=== PATIENT | male | born 1955 | race Caucasian/White ===

== ENCOUNTER 2020-08-27 18:27 | Outpatient (REF) | payer OTHER, SELFPAY ==
[2020-08-27 20:42] LABS: ALT 81 U/L (16-63); AST 38 U/L (15-37); Alkaline Phosphatase 83 U/L (46-116); Anion Gap 8.4 mmol/L (3-11); BUN 9 mg/dL (7-18); Bilirubin, Total 0.4 mg/dL (0.2-1.0); CO2 28.6 mmol/L (21.0-32.0); CREATININE 1.07 mg/dL (0.70-1.30); Calculated LDL 46 mg/dL (<100); Chloride 102 mmol/L (98-107); Cholesterol 146 mg/dL (<200); Glucose 364 mg/dL (74-106); HDL Cholesterol 28 mg/dL (40-60); Potassium 4.2 mmol/L (3.5-5.1); Sodium 139 mmol/L (136-145); Total Protein 7.2 g/dL (6.4-8.2); Triglyceride 364 mg/dL (<150)
[2020-08-27 20:58] LABS: Hemoglobin A1C 7.6 % (<5.7)
== END 2020-08-27 18:47 ==
LOC: NCHCN 18:27
PROVIDERS: Visit Provider Physician Assistant
DX: E11.9 Type 2 diabetes mellitus without complications (principal)
CPT/HCPCS: 80053; 80061; 83036

== ENCOUNTER 2021-04-12 03:33 | Outpatient (CLI) | payer OTHER, SELFPAY ==
--- NOTE | 2021-04-12 11:00 | DI.CTLCSR_ITS ---
Exam(s) CT CHEST LUNG CANCER SCREEN EXAM: CT CHEST LUNG CANCER SCREEN CLINICAL HISTORY: SCREENING FOR LUNG CA, COPD,J44.9,COMPARE TO OUTSIDE PREVIOUS,smoker, TECHNIQUE: Imaging Protocol: Axial computed tomography images with coronal and sagittal reformatted images were created and reviewed COMPARISON: No exams were available for comparison FINDINGS: Tracheobronchial tree: Patent where visualized. Mediastinum and Soni: No dominant adenopathy or fluid collection. Pulmonary parenchyma: No consolidation or dominant measurable mass. Minimal emphysematous changes. N o significant interstitial changes. Lung Nodules: Two 2 millimeter peripheral nodules right upper lobe. Pleura: No effusion or pneumothorax. Heart: The heart is not dilated. Mild coronary artery calcifications are seen. Aorta: Thoracic aorta non-dilated. Upper abdomen: Unremarkable. Bones: Unremarkable for age. Degenerative disc changes.. Soft Tissues: Unremarkable. IMPRESSION: No suspicious pulmonary nodules. Category Lung RADS Cat 2 - Benign Appearance / Behavior: Nodules with a very low likelihood of becomi ng a clinically active cancer due to size or lack of growth Lung-RADS 1.0 CATEGORIES: Category 0 - Prior chest CT exam(s) being located for comparison. Category 1 - Annual screening in 12 months. No nodules or definitely benign nodules. Category 2 - Annual screening in 12 months. Benign appearance. Nodules with low likelihood of becomin g active cancer. Category 3 - 6-month follow-up. Probably benign. Short-term follow-up suggested. Nodules with low lik elihood of becoming active cancer. Category 4A - 3-month follow-up and CT/PET if >8 mm in size. Suspicious finding. Findings which requi re additional testing. Category 4B - Findings which require additional testing and tissue sampling. Modifier S- Potentially clinically significant findings (non lung cancer) RADIATION DOSE DELIVERED: 92.26mGy.cm Total DLP 2.21mGy CTDIvol DATA REPOSITORY: All CT scans at this facility are submitted to the National Radiology Data Registry (NRDR) Dose Index Registry (DIR) with the [employer] (ACR). RADIATION OPTIMIZATION: All CT scans at this facility use at least one of these dose optimization te chniques: automated exposure control; mA and/or kV adjustment per patient size (includes targeted exa ms where dose is matched to clinical indication); or iterative reconstruction.
== END 2021-04-12 03:53 ==
PROVIDERS: Visit Provider Physician Assistant
DX: Z12.2 Encounter for screening for malignant neoplasm of respiratory organs (principal); J44.9 Chronic obstructive pulmonary disease, unspecified; Z87.891 Personal history of nicotine dependence
CPT/HCPCS: 71271

== ENCOUNTER 2023-05-04 13:19 | Outpatient (REF) | payer MEDICARE, SELFPAY ==
[2023-05-04 16:57] LABS: COMMENT (LAB VIEW ONLY) 120.24 mg/dL; Microalb ug/mg Crea 11.8 ug/mg Cr
== END 2023-05-04 13:20 | disposition home or self-care (01) ==
LOC: NCHCN 13:19
PROVIDERS: PCP Physician Assistant; Visit Provider Physician Assistant
DX: E11.9 Type 2 diabetes mellitus without complications (principal)
CPT/HCPCS: 82043; 82570

== ENCOUNTER 2023-12-31 19:33 | Outpatient (REF) | payer BC, SELFPAY ==
[2023-12-31 19:05] LABS: HCT 41.7 % (40.0-50.0); HGB 14.2 g/dL (13.5-17.5); MCH 30.5 pg (27.0-33.0); MCHC 34.1 % (32.0-36.0); MCV 90 fL (80-95); MPV 9.9 fL (8.0-11.0); Platelet Count 227 10^3/uL (130-400); RBC 4.66 10^6/uL (4.36-5.78); RDW 12.7 % (11.8-14.1); RDW-SD 41.5 fL; WBC 4.67 10^3/uL (4.4-10.8)
[2023-12-31 19:23] LABS: Hemoglobin A1C 8.9 % (<5.7)
[2023-12-31 19:34] LABS: ALT 46 U/L (16-63); AST 23 U/L (15-37); Albumin 3.7 g/dL (3.4-5.0); Alkaline Phosphatase 101 U/L (46-116); Anion Gap 11.4 mmol/L (3-11); BUN 13 mg/dL (7-18); Bilirubin, Total 0.3 mg/dL (0.2-1.0); CO2 24.6 mmol/L (21.0-32.0); Calculated LDL 72 mg/dL (<100); Chloride 105 mmol/L (98-107); Cholesterol 155 mg/dL (<200); Estimated GFR 81.47 (mL/min/1.73m2); Glucose 347 mg/dL (74-106); HDL Cholesterol 33 mg/dL (40-60); Potassium 4.4 mmol/L (3.5-5.1); Sodium 141 mmol/L (136-145); Total Protein 6.9 g/dL (6.4-8.2); Triglyceride 250 mg/dL (<150)
== END 2023-12-31 19:34 | disposition home or self-care (01) ==
LOC: NCHCN 19:33
PROVIDERS: PCP Physician Assistant; Referring Provider Physician Assistant; Visit Provider Physician Assistant
DX: E11.9 Type 2 diabetes mellitus without complications (principal)
CPT/HCPCS: 80053; 80061; 85027; 83036

== ENCOUNTER 2024-07-01 10:23 | Outpatient (REF) | payer BC, SELFPAY ==
--- OUTSIDE RECORDS SUMMARY | 2024-07-01 10:24 | XMS_ITS | Continuity of Care Document ---
Author Organization [facility] Address [address] [place] [address] Care Team Providers Care Synthetic Department Supervisor Name Role Phone [facility] Primary [facility] Physician Encounter [facility] [id number] Date(s): 04/29/23 - 04/29/23 [facility] [address] [place] [address] Discharge Disposition: Home or Self Care Attending Physician: Scott Hernandez MD Admitting Physician: Scott Hernandez MD Referring Physician: Scott Hernandez MD Allergies, Adverse Reactions, Alerts No Known Medication Allergies Assessment and Plan Future Appointments Immunizations Given and Recorded Vaccine Date Status Refusal Reason SARS-CoV-2 (COVID-19) mRNA-1273 vaccine 01/14/21 R ecorded SARS-CoV-2 (COVID-19) mRNA-1273 vaccine 12/18/20 R ecorded varicella virus vaccine 10/08/20 Recorded zoster vaccine, inactivated 07/23/20 Recorded influenza virus vaccine, live 07/23/20 Recorded influenza virus vaccine, live 07/01/19 Recorded influenza virus vaccine, live 07/05/18 Recorded pneumococcal 13-valent conjugate vaccine 08/19/19 Recorded Medications tamsulosin 0.4 mg oral capsule 0.8 mg = 2 cap, Oral, Daily, # 180 cap, 3 Refill(s), Pharmacy: [facility] Start Date: 04/29/23 Stop Date: 04/23/24 Status: Ordered Problem List Condition Confirmation Course Effective Dates Status Health Status Informant Dream enactment behavior Confirmed 07/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 Hypertriglyceridemia Confirmed 06/23/18 Active Impingement syndrome of right shoulder region Confirmed Active Kidney stone Confirmed Active Large prostate Confirmed Active Liver function tests abnormal Confirmed 09/14/18 Active Malignant tumor of prostate Confirmed Active Neuropathy due to type 2 diabetes mellitus Confirmed Active Obesity Confirmed Active Obstructive sleep apnea syndrome Confirmed Active Osteomyelitis Confirmed 06/24/18 Active Poliosis Confirmed 06/24/18 Active Raised prostate specific antigen Confirmed 08/19/19 Active Right knee pain Confirmed Active Skin ulcer Confirmed 08/02/19 Active Testicular hypofunction Confirmed Active Type 2 diabetes mellitus without complication Confirmed Active Procedures Procedure Date Related Diagnosis Body Site Status Anastomotic urethroplasty 1 04/03/21 Completed Cystourethroscopy with dilat ion of urethral stricture 2 10/12/19 Completed Colonoscopy 3 05/12/18 Completed EGD - Esophagogastroduodenoscopy 4 05/12/18 Completed Upper GI (gastrointestinal) endoscopy 5 05/04/18 Completed Repair of nasal septum 6 10/04/06 Completed Procedure on knee 7 10/04/96 Compl eted Mohs addl stage 8 10/04/85 Complet ed Internal urethrotomy 1983 Comp leted Hemorrhoidectomy Complete d [place] Calvin Garsia 2DrBrianna Hernandez 35 year follow up- rectal polyp - tubular adenoma; 10-05-1999 4GERD with esophagitis, ulcerative esophagitis, acute erosive gastritis 5erosive esophagitis 48491 2006. 2 arthroscopic surgeries on the right and one on the left. Meniscus repairs 8left scalp, fibro sarcoma Results Laboratory List Name Date Creatinine 04/29/23 PSA Diagnostic 04/29/23 Most recent to oldest [Reference Range]: 1 PSA Total Diagnostic [0.00-4.00 ng/mL] 5 .50 ng/mL 1 *HI* (04/29/23 12:23 PM) eGFR Non-AA [>=60] 93 (04/29/23 12:23 PM) eGFR AA [>=60] 93 (04/29/23 12:23 PM) Creatinine Level [0.70-1.30 mg/dL] 0.90 mg/dL (04/29/23 12:23 PM) 1Interpretive Data: The testing method is an heterogeneous enzyme Immunoassay manufactured by [employer] and performed on the [employer] system. Values obtained with different assay methods or kits may be different and cannot be used interchangeably. Test results cannot be interpreted as absolute evidence for the presence or absence of malignant disease. Social History Social History Type Response Tobacco Never tobacco user T obacco Use:. Sex Male Patient Care team information Care Team Personnel Name: [facility]ima [facility] Position: No Access Member Role: Primary Care Physician Address: Address: [address] [place], [place] [address] Care Team Related Persons Name: KASSANDRA CERVANTES Address: Home
--- OUTSIDE RECORDS SUMMARY | 2024-07-01 10:25 | XMS_ITS | Encounter Summary ---
Author Organization [facility] [place] [address] Care Team Providers Care Photographic Process Screen Maker Name Role Phone Pillo Rabago Primary Care Provider Encounter Details Date Type Department Care Team (Late st Contact Info) Description 10/09/2020 [place] [id number] Rosario Diallo Social History Tobacco Use Types Packs/Day Years Used Date Smoking Tobacco: Former Cigarettes Smokeless Tobacco: Never Comments:August of 2014 qu it Sex and Gender Information Value Date Recorded Sex Assigned at Male 04/15/2021 8:56 AM EDT Gender Identity Male 04/15/2021 8:56 AM EDT Sexual Orientation Straight 04/15/2021 8: 56 AM EDT documented as of this encounter Miscellaneous Notes * Telephone Encounter - Rosario Diallo - 10/09/2020 10:39 AM EST Left a to schedule a new patient appt. Sent a letter. documented in this encounter Plan of Treatment Not on file documented as of this encounter Visit Diagnoses Not on filedocumented in this encounter Care Teams Photographic Process Screen Maker Relationship Specialty Start Date End Date Pillo Rabago PA PCP - General General Internal Medicine 08/05/19 documented as of this encounter
--- OUTSIDE RECORDS SUMMARY | 2024-07-01 10:25 | XMS_ITS | Encounter Summary ---
[place] [address] Care Team Providers Care Psych Therapist Name Role Phone Pillo Rabago Primary Care Provider Reason for Referral * Diagnostic Test (Routine) - Closed Specialty Diagnoses / Procedures Referred By Contac t Referred To Contact Radiology Diagnoses Malignant neoplasm of prostate Procedures MRI Pelvis wwo (Prostate) Scott Hernandez MD [address] [place] [address] [place] [address] Referral ID Status Reason Start Date Expiration Date V isits Requested Visits Authorized [id number] Closed Specialty Service Requested 05/08/2020 11/08/2021 1 1 Reason for Visit * Diagnostic Test (Routine) - Closed Specialty Diagnoses / Procedures Referred By Amanda ricks Referred To Contact Radiology Diagnoses Malignant neoplasm of prostate Procedures MRI Pelvis wwo (Prostate) Scott Hernandez MD [address] [place] [address] [place] [address] Referral ID Status Reason Start Date Expiration Date V isits Requested Visits Authorized [id number] Closed Specialty Service Requested 05/08/2020 11/08/2021 1 1 Encounter Details Date Type Department Care Team (Late st Contact Info) Description 08/15/2020 8:19 AM EST - 08/15/2020 11:59 PM EST Hospital [place] [address] Scott Hernandez MD [address] [place] [id number] Malignant neoplasm of prostate Discharge Disposition: Home Social History Tobacco Use Types Packs/Day Years Used Date Smoking Tobacco: Former Cigarettes Smokeless Tobacco: Never Comments:August of 2014 qu it Sex and Gender Information Value Date Recorded Sex Assigned at Male 04/15/2021 8:56 AM EDT Gender Identity Male 04/15/2021 8:56 AM EDT Sexual Orientation Straight 04/15/2021 8: 56 AM EDT documented as of this encounter Medications at Time of Discharge Medication Sig Dispensed Refills Start Date End Date Victoza 3-Andrew 0.6 mg/0.1 mL (18 mg/3 mL) Pen Injector 06/11/2020 insulin glargine (LANTUS SOLOSTAR U-100 INSULIN) 100 unit/mL (3 mL) pen Inject subcutaneously nightly. 35 units twice daily metFORMIN (GLUCOPHAGE) 500 mg Tablet Take 500 mg by mouth 2 times daily (with meals). venlafaxine (EFFEXOR-XR) 150 mg Capsule, Sust. Release 24 hr Take 150 mg by mouth daily. pregabalin (LYRICA) 300 mg Capsule Take 300 mg by mouth 2 times daily. sucralfate (CARAFATE) 1 gram Tablet 06/08/2019 testosterone (ANDROGEL) 20.25 mg/1.25 gram (1.62 %) Gel in Metered-dose Pump 07/02/2019 omeprazole (PRILOSEC) 40 mg Capsule, Delayed Release(E.C.) 07/13/2019 rosuvastatin (CRESTOR) 5 mg Tablet 07/13/2019 tamsulosin (FLOMAX) 0.4 mg Capsule 07/13/2019 BD ULTRA-FINE SHORT PEN NEEDLE 31 gauge x 5/16 Needle 0 03/28/2019 FLUZONE HIGH-DOSE 2019-20, PF, 180 mcg/0.5 mL Syringe inject 0.5 milliliters intramuscularly 0 07/01/2019 11/29/2021 documented as of this encounter Plan of Treatment Not on file documented as of this encounter Procedures Procedure Name Priority Date/Time Associated Diagnosis Comments MRI PELVIS WWO (PROSTATE) Routine 08/15/2020 10:29 AM EST Malignant neoplasm of prostate documented in this encounter Results * MRI Pelvis wwo (Prostate) (08/15/2020 10:29 AM EST) Anatomical Region Laterality Modality Pelvis Magnetic Resonan ce Impressions 08/16/2020 9:09 AM EST No focal lesions. BPH. PI-RADS 2. Clinically significant cancer is unlikely to be present. Findings in the left peripheral zone which may be seen in the setting of prostatitis. PI-RADS v2.1 Assessment Categories PI-RADS 1 -- Very low (clinically significant cancer is highly unlikely to be present) PI-RADS 2 -- Low (clinically significant cancer is unlikely to be present) PI-RADS 3 -- Intermediate (the presence of clinically significant cancer is equivocal) PI-RADS 4 -- High (clinically significant cancer is likely to be present) PI-RADS 5 -- Very high (clinically significant cancer is highly likely to be present) I have personally reviewed the image(s) and the resident's interpretation and agree with the findings, Federico Hale MD at 08/16/2020 9:09 AM Thank you for letting us participate in the care of this patient. For questions regarding this report, please contact the number below. ? Electronically signed by: Federico Hale MD, [facility] ([phone]), at 08/16/2020 9:09 AM Narrative 08/16/2020 9:09 AM EST EXAMINATION: MRI PELVIS WWO (PROSTATE) CLINICAL HISTORY: Carcinoma of prostate, malignant neoplasm of prostate PSA level: 5.1 ng/mL Date of sextant biopsy: None TECHNIQUE: Multiparametric MRI of the prostate prior to and following the IV administration of 20 cc of Dotarem contrast. ?? QUALITY: Meets PI-RADS technical criteria. COMPARISON: None FINDINGS: Prostate dimensions: 5.7 x 3.6 x 6.4 cm. Estimated prostate volume: 68.3cc (X x Y x Z x 0.52) PSA density: 0.07 (PSA/prostate volume >0.15 susp, 0.25 highly susp) Peripheral zone: No focal lesions. The entire left peripheral zone. T2: Heterogeneous signal intensity with well demarcated medial margin occupying the entire left peripheral zone. PI-RADs: 2. DWI: ??Mild diffusely decreased signal on ADC and mildly increased signal on high B value. PI-RADs: 2. DCE-MRI: (+) focal early enhancement which corresponds to finding on T2WI. Combined PI-RADs: 2. Transition zone: No focal lesions T2: Typical encapsulated and homogenous circumscribed nodules with intervening areas of homogenous mildly hypointense signal. PI-RADs: 2. DWI: ??No abnormality on ADC and high b-value DWI. PI-RADs: 1. DCE-MRI: ??(-) No early arterial enhancement. Combined PI-RADs: 2. Procedure Note Federico Hale MD - 08/16/2020 EXAMINATION: MRI PELVIS WWO (PROSTATE) CLINICAL HISTORY: Carcinoma of prostate, malignant neoplasm of prostate PSA level: 5.1 ng/mL Date of sextant biopsy: None TECHNIQUE: Multiparametric MRI of the prostate prior to and following theIV administration of 20 cc of Dotarem contrast. QUALITY: Meets PI-RADS technical criteria. COMPARISON: None FINDINGS: Prostate dimensions: 5.7 x 3.6 x 6.4 cm. Estimated prostate volume: 68.3cc (X x Y x Z x 0.52) PSA density: 0.07 (PSA/prostate volume >0.15 susp, 0.25 highly susp) Peripheral zone: No focal lesions. The entire left peripheral zone. T2: Heterogeneous signal intensity with well demarcated medial marginoccupying the entire left peripheral zone. PI-RADs: 2. DWI: Mild diffusely decreased signal on ADC and mildly increased signalon high B value. PI-RADs: 2. DCE-MRI: (+) focal early enhancement which corresponds to finding onT2WI. Combined PI-RADs: 2. Transition zone: No focal lesions T2: Typical encapsulated and homogenous circumscribed nodules withintervening areas of homogenous mildly hypointense signal. PI-RADs: 2. DWI: No abnormality on ADC and high b-value DWI. PI-RADs: 1. DCE-MRI: (-) No early arterial enhancement. Combined PI-RADs: 2. IMPRESSION No focal lesions. BPH. PI-RADS 2. Clinically significant cancer isunlikely to be present. Findings in the left peripheral zone which may be seen in the setting of prostatitis. PI-RADS v2.1 Assessment Categories PI-RADS 1 -- Very low (clinically significant cancer is highly unlikely dorinda present) PI-RADS 2 -- Low (clinically significant cancer is unlikely to bepresent) PI-RADS 3 -- Intermediate (the presence of clinically significant canceris equivocal) PI-RADS 4 -- High (clinically significant cancer is likely to bepresent) PI-RADS 5 -- Very high (clinically significant cancer is highly likely dorinda present) I have personally reviewed the image(s) and the resident's interpretationand agree with the findings, Federico Hale MD at 08/16/2020 9:09 AM Thank you for letting us participate in the care of this patient. Forquestions regarding this report, please contact the number below. Electronically signed by: Federico Hale MD, [facility]([phone]), at 08/16/2020 9:09 AM Scott Hernandez MD IM MRI ORDERABLES documented in this encounter Visit Diagnoses Diagnosis Malignant neoplasm of prostate documented in this encounter Administered Medications Inactive Administered Medications - up to 3 most recent administrations Medication Order MAR Action Action Date Dose Rate Site gadoterate meglumine (DOTAREM) 0.5 mmol/mL (376.9 mg/mL) injection 0.2 mL/kg/dose 0.2 mL/kg/dose, Intravenous, ONCE PRN, 1 dose, Starting on Thu08/15/20 at 1030, Until Thu08/15/20 at 1030, Per Protocol, Radiology Contrast, Routine Given 08/15/2020 10:30 AM EST 23 mLs documented in this encounter Care Teams Psych Therapist Relationship Specialty Start Date End Date Pillo Rabago PA PCP - General General Internal Medicine 08/05/19 documented as of this encounter
--- OUTSIDE RECORDS SUMMARY | 2024-07-01 10:25 | XMS_ITS | Continuity of Care Document ---
Author Organization [facility] Address [address] [place] [address] Care Team Providers Care Instructor Flying Name Role Phone Pillo Lackey Primary Care Physician Encounter [facility] [id number] Date(s): 06/11/23 - 06/11/23 [facility] [address] [place] [address] Discharge Disposition: Home or Self Care Attending Physician: Pillo Lackey Admitting Physician: Pillo Lackey Referring Physician: Pillo Lackey Allergies, Adverse Reactions, Alerts No Known Medication [...] Daily, # 180 cap, 3 Refill(s), Pharmacy: [facility] Start Date: 04/29/23 Stop Date: 04/23/24 [...] Comp leted [facility]orrhoidectomy Complete [facility] [place] Calvin [place] 2DrBrianna Hernandez 35 year follow up- rectal polyp - tubular adenoma; 10-05-1999 4GERD with esophagitis, ulcerative esophagitis, acute erosive gastritis 5erosive esophagitis [address] 7; 2006. 2 arthroscopic surgeries on the right and one on the left. Meniscus repairs 8left scalp, fibro sarcoma Social History Social History Type Response Tobacco Never tobacco user T obacco Use:. Sex Male Patient Care team information Care Team Personnel Name: Hima [facility] Z[facility] Position: No Access Member Role: Primary Care Physician Address: Address: [address] [place], [place] [address] Care Team Related Persons Name: KASSANDRA CERVANTES Address: Home
--- OUTSIDE RECORDS SUMMARY | 2024-07-01 10:25 | XMS_ITS | Encounter Summary ---
Author Organization [facility] [place] [address] Care Team Providers Care Orthopaedic Physician Assistant Name Role Phone Pillo Rabago Primary Care Provider Reason for Visit * - Closed Specialty Diagnoses / Procedures Referred By Contac t Referred To Contact Procedures Film Library- Storage Only DX Pelvis Pillo Rabago PA [address] [place] [address] Referral ID Status Reason Start Date Expiration Date Visits Re quested Visits Authorized [id number] Closed 02/14/2021 02/14/2022 1 1 Encounter Details Date Type Department Care Team (Late st Contact Info) Description 02/12/2021 Ancillary Procedure Radiology Library at [facility] [place] [address] Pillo Rabago PA [address] [place] [address] Social History Tobacco Use Types Packs/Day Years Used Date Smoking Tobacco: Former Cigarettes Smokeless Tobacco: Never Comments:August of 2014 qu it Sex and Gender Information Value Date Recorded Sex Assigned at Male 04/15/2021 8:56 AM EDT Gender Identity Male 04/15/2021 8:56 AM EDT Sexual Orientation Straight 04/15/2021 8: 56 AM EDT documented as of this encounter Plan of Treatment Not on file documented as of this encounter Procedures Procedure Name Priority Date/Time Associated Diagnosis Comments FILM LIBRARY STORAGE ONLY DX PELVIS Routine 02/12/2021 12:00 AM EDT documented in this encounter Results * Film Library- Storage Only DX Pelvis (02/12/2021 12:00 AM EDT) Narrative [facility] - 02/14/2021 10:50 AM EDT This exam is auto-finalizing. It's purpose is for storage only. Pillo VITAL Juana FILM LIBRARY ORD ERABLES Performing Organization Address City/State/[facility] Co de Phone Number [place], [place] documented in this encounter Visit Diagnoses Not on filedocumented in this encounter Care Teams Orthopaedic Physician Assistant Relationship Specialty Start Date End Date Pillo Rabago PA PCP - General General Internal Medicine 08/05/19 documented as of this encounter
--- OUTSIDE RECORDS SUMMARY | 2024-07-01 10:25 | XMS_ITS | Continuity of Care Document ---
Author Organization [facility] Address [address] [place] [address] Care Team Providers Care Development Spec Name Role Phone Pillo Rabago Primary Care Physician Encounter [facility] Date(s): 11/21/22 - 11/21/22 [facility] [address] [place] [address] Discharge Disposition: Home or Self Care Attending Physician: Pillo Rabago Admitting Physician: Pillo Rabago Referring Physician: Pillo Rabago Allergies, Adverse Reactions, Alerts No Known Medication [...] Recorded pneumococcal 13-valent conjugate vaccine 08/19/19 Recorded Problem List Condition Confirmation Course Effective Dates [...] Comp leted [facility]orrhoidectomy Complete [facility] [place] Calvin Garsia 2DrBrianna Hernandez 35 year follow up- rectal polyp - tubular adenoma; 10-05-1999 4GERD with esophagitis, ulcerative esophagitis, acute erosive gastritis 5erosive esophagitis [address]46 7; 2006. 2 arthroscopic surgeries on the right and one on the left. Meniscus repairs 8left scalp, fibro sarcoma Results Laboratory List Name Date Comprehensive Metabolic Panel 11/21/22 Hemoglobin A1c 11/21/22 Lipid Panel 11/21/22 PSA Diagnostic 11/21/22 Most recent to oldest [Reference Range]: 1 BUN [7-18 mg/dL] 10 mg/dL (11/21/22 9:00 AM) Cholesterol Total [50-200 mg/dL] 119 mg/ dL (11/21/22 9:00 AM) LDL [0-130 mg/dL] 53 mg/dL (11/21/22 9:00 AM) Glucose Level [74-106 mg/dL] 99 mg/dL (11/21/22 9:00 AM) Potassium Level [3.5-5.1 mmol/L] 3.9 mmo l/L (11/21/22 9:00 AM) HDL [40-60 mg/dL] 34 mg/dL *LOW* (11/21/22 9:00 AM) AST [15-37 unit/L] 26 unit/L (11/21/22 9:00 AM) ALT [16-63 unit/L] 57 unit/L (11/21/22 9:00 AM) Sodium Level [136-145 mmol/L] 140 mmol/L (11/21/22 9:00 AM) Triglycerides [0-150 mg/dL] 159 mg/dL *HI* (11/21/22 9:00 AM) Calcium Level [8.5-10.1 mg/dL] 8.9 mg/dL (11/21/22 9:00 AM) Albumin Level [3.4-5.0 g/dL] 3.6 g/dL (11/21/22 9:00 AM) Protein Total [6.4-8.2 g/dL] 7.4 g/dL (11/21/22 9:00 AM) Bilirubin Total [0.2-1.0 mg/dL] 0.5 mg/d L (11/21/22 9:00 AM) Alk Phos [46-146 unit/L] 81 unit/L (11/21/22 9:00 AM) CO2 [21-32 mmol/L] 32 mmol/L (11/21/22 9:00 AM) PSA Total Diagnostic [0.00-4.00 ng/mL] 5 .38 ng/mL *HI* (11/21/22 9:00 AM) eGFR Non-AA [>=60] 98 (11/21/22 9:00 AM) eGFR AA [>=60] 98 (11/21/22 9:00 AM) Hemoglobin A1c [4.0-6.0 %] 6.8 % *HI* (11/21/22 9:00 AM) Chloride Level [98-107 mmol/L] 104 mmol/ L (11/21/22 9:00 AM) Creatinine Level [0.70-1.30 mg/dL] 0.76 mg/dL (11/21/22 9:00 AM) Social History Social History Type Response Tobacco Never tobacco user T obacco Use:. Sex Male Patient Care team information Care Team Personnel Name: Pillo Rabago Position: No Access Member Role: Primary Care Physician Address: Address: [address] Care Team Related Persons Name: KASSANDRA CERVANTES Address: [place]
--- OUTSIDE RECORDS SUMMARY | 2024-07-01 10:25 | XMS_ITS | Encounter Summary ---
Author Organization [facility] [place] [address] Care Team Providers Care Base Engineer Name Role Phone Pillo Rabago Primary Care Provider Reason for Visit * Reason Comments Follow Up Surgery Encounter Details Date Type Department Care Team (Late st Contact Info) Description 05/22/2021 9:00 AM EDT [place] [address] Calvin Garsia III, MD [facility] [place] [address] Stricture of anterior urethra in male, unspecified stricture type Social History Tobacco Use Types Packs/Day Years Used Date Smoking Tobacco: Former Cigarettes Smokeless Tobacco: Never Comments:August of 2014 qu it Alcohol Use Standard Drinks/Week Comments Not Currently 0 (1 standard drink = 0.6 oz pur e alcohol) seldom Sex and Gender Information Value Date Recorded Sex Assigned at Male 04/15/2021 8:56 AM EDT Gender Identity Male 04/15/2021 8:56 AM EDT Sexual Orientation Straight 04/15/2021 8: 56 AM EDT documented as of this encounter Progress Notes * Calvin Garsia III, MD - 05/22/2021 9:00 AM EDT [place] is a 66-year-old gentleman who returns for 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 He is approximately a 4weeks of following 1 stage anterior urethroplasty (EPA). He has had some issues with occluded catheter requiring irrigation in the local emergency department. Physical examination: Midline perineal incision is well-healed. 700 cc of yellow urine were decanted from his bladder. The Mary catheter was removed. Procedure: In the modified lithotomy position the penis was prepped and draped. An 8 Lib[place] pediatric Mary catheter was inserted into the fossa and the balloon and still with a 1.5 mL of water. Using full-strength Omnipaque a retrograde urethrogram was performed. This showed no evidence of obstruction throughout the bulbar urethra. The contrast was not seen in the posterior or prostatic urethra. The catheter balloon was deflated and the catheter removed. He will be given a voiding trial today. He will be placed on 3 days of ciprofloxacin. Plan: Return to clinic 2 to 3 months for reassessment documented in this encounter Plan of Treatment Not on file documented as of this encounter Visit Diagnoses Diagnosis Stricture of anterior urethra in male, unspecified stricture type documented in this encounter Care Teams Base Engineer Relationship Specialty Start Date End Date Pillo Rabago PA PCP - General General Internal Medicine 08/05/19 documented as of this encounter
--- OUTSIDE RECORDS SUMMARY | 2024-07-01 10:25 | XMS_ITS | Encounter Summary ---
Author Organization [facility] [place] [address] Care Team Providers Care Fourchette Sewer Name Role Phone Pillo Rabago Primary Care Provider Encounter Details Date Type Department Care Team (Late st Contact Info) Description 04/19/2021 [place] [id number] David Hess MD [facility] [place] [address] Social History Tobacco Use Types Packs/Day Years Used Date Smoking Tobacco: Former Cigarettes Smokeless Tobacco: Never Comments:August of 2014 qu it Sex and Gender Information Value Date Recorded Sex Assigned at Male 04/15/2021 8:56 AM EDT Gender Identity Male 04/15/2021 8:56 AM EDT Sexual Orientation Straight 04/15/2021 8: 56 AM EDT documented as of this encounter Miscellaneous Notes * Telephone Encounter - David Hess MD - 04/19/2021 9:47 AM EDT Images from the original note were not included. Patient prescribed Keflex BID x 4 days leading up to surgery per Dr. Upton. I called the patient and left a voicemail reminding him to take his antibiotics. David Hess MD, MPH Urology, PGY-5 Personal Pager #[phone] 04/19/2021 documented in this encounter Plan of Treatment Not on file documented as of this encounter Visit Diagnoses Not on filedocumented in this encounter Care Teams Fourchette Sewer Relationship Specialty Start Date End Date Pillo Rabago PA PCP - General General Internal Medicine 08/05/19 documented as of this encounter
--- OUTSIDE RECORDS SUMMARY | 2024-07-01 10:25 | XMS_ITS | Continuity of Care Document ---
Author Organization [facility] Address [address] [place] [address] Care Team Providers Care Heart Specialist Name Role Phone Pillo Bello Primary Care Physician [phone] Encounter [facility] Date(s): 06/27/22 - 06/27/22 [facility] [address] [place] [address] Discharge Disposition: Home or Self Care Attending [...] conjugate vaccine 08/19/19 Recorded Problem List Condition Effective Dates Status Health Status Inform ant Dream enactment behavior(Confirmed) 07/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 Hypertriglyceridemia(Confirmed) 06/23/18 Active Impingement syndrome of righ t shoulder region(Confirmed) Active Kidney stone(Confirmed) Active Large prostate(Confirmed) Active Liver function tests abnormal(Confirmed) 09/14/18 Active Malignant tumor of prostate(Confirmed) Active 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 Calvin Gars[facility] 2Dr. David 35 year follow up- rectal polyp - tubular adenoma; 10-05-1999 4GERD with esophagitis, ulcerative esophagitis, acute erosive gastritis 5erosive esophagitis [id number] 2006. 2 arthroscopic surgeries on the right and one on the left. Meniscus repairs 8left scalp, fibro sarcoma Results Laboratory List Name Date Microalbumin/Creatinine Ratio Urine 06/27 Comprehensive Metabolic Panel 06/27/22 Hemoglobin A1c 06/27/22 Lipid Panel 06/27/22 PSA Screen 06/27/22 Most recent to oldest [Reference Range]: 1 BUN [7-18 mg/dL] 12 mg/dL (06/27/22 10:36 AM) Cholesterol Total [50-200 mg/dL] 139 mg/ dL (06/27/22 10:36 AM) LDL [0-130 mg/dL] 49 mg/dL (06/27/22 10:36 AM) Glucose Level [74-106 mg/dL] 144 mg/dL *HI* (06/27/22 10:36 AM) Potassium Level [3.5-5.1 mmol/L] 4.4 mmo l/L (06/27/22 10:36 AM) HDL [40-60 mg/dL] 27 mg/dL *LOW* (06/27/22 10:36 AM) AST [15-37 unit/L] 53 unit/L *HI* (06/27/22 10:36 AM) ALT [14-59 unit/L] 110 unit/L *HI* (06/27/22 10:36 AM) Sodium Level [136-145 mmol/L] 140 mmol/L (06/27/22 10:36 AM) Triglycerides [0-150 mg/dL] 315 mg/dL *HI* (06/27/22 10:36 AM) Calcium Level [8.5-10.1 mg/dL] 9.0 mg/dL (06/27/22 10:36 AM) Albumin Level [3.4-5.0 g/dL] 3.6 g/dL (06/27/22 10:36 AM) Protein Total [6.4-8.2 g/dL] 7.3 g/dL (06/27/22 10:36 AM) Bilirubin Total [0.2-1.0 mg/dL] 0.4 mg/d L (06/27/22 10:36 AM) Alk Phos [46-146 unit/L] 84 unit/L (06/27/22 10:36 AM) CO2 [21-32 mmol/L] 32 mmol/L (06/27/22 10:36 AM) eGFR Non-AA [>=60] 97 (06/27/22 10:36 AM) eGFR AA [>=60] 97 (06/27/22 10:36 AM) U Creatinine [30-125 mg/dL] 58 mg/dL (06/27/22 10:38 AM) Hemoglobin A1c [4.0-6.0 %] 6.6 % *HI* (06/27/22 10:36 AM) Chloride Level [98-107 mmol/L] 104 mmol/ L (06/27/22 10:36 AM) U Microalb/Creat [0.0-30.0 mcg/mg] 17.9 mcg/mg (06/27/22 10:38 AM) U Microalb [0.0-20.0] 10.4 (06/27/22 10:38 AM) Creatinine Level [0.70-1.30 mg/dL] 0.79 mg/dL (06/27/22 10:36 AM) PSA Total Screening [0.00-4.00 ng/mL] 5. 67 ng/mL *HI* (06/27/22 10:36 AM) Anion Gap [8-16 mmol/L] 4 mmol/L *LOW* (06/27/22 10:36 AM) Social History Social History Type Response Sex Male Patient Care team information Personnel Name: Pillo Rabago Address: Address: [id number] [place] [address]
--- OUTSIDE RECORDS SUMMARY | 2024-07-01 10:25 | XMS_ITS | Encounter Summary ---
[place] [address] Care Team Providers Care Weeder Thinner Name Role Phone Pillo Rabago Primary Care Provider [phone] Reason for Referral * Diagnostic Test (Routine) - Closed Specialty Diagnoses / Procedures Referred By Contac t Referred To Contact Radiology Diagnoses Malignant neoplasm prostate Procedures MRI Pelvis wwo (Prostate) Scott Hernandez MD [address] [place] [address] [place] [address] Referral ID Status Reason Start Date Expiration Date V isits Requested Visits Authorized [id number] Closed Specialty Service Requested 04/29/2023 10/30/2024 1 1 Reason for Visit * Diagnostic Test (Routine) - Closed Specialty Diagnoses / Procedures Referred By Contac t Referred To Contact Radiology Diagnoses Malignant neoplasm prostate Procedures MRI Pelvis wwo (Prostate) Scott Hernandez MD [address] [place] [address] [place] [address] Referral ID Status Reason Start Date Expiration Date V isits Requested Visits Authorized [id number] Closed Specialty Service Requested 04/29/2023 10/30/2024 1 1 Encounter Details Date Type Department Care Team (Late st Contact Info) Description 06/29/2023 8:34 AM EDT - 06/29/2023 11:59 PM EDT Hospital [place] [address] Scott Hernandez MD [address] [place] [id number] Malignant neoplasm prostate Discharge Disposition: Home Social History Tobacco [...] Sig Dispensed Refills Start Date End Date acetaminophen (Tylenol) 325 mg Tablet Take 2 tablets by mouth every 6 hours as needed for Pain. 30 tablet 1 04/23/2021 ibuprofen (Advil) 600 mg Tablet Take 1 tablet by mouth every 6 hours as needed for Pain. 30 tablet 12 04/23/2021 polyethylene glycoL (Miralax) 17 gram Powder in Packet Take 17 g by mouth daily as needed. 14 each 04/23/2021 senna-docusate (Pericolace) 8.6-50 mg Tablet Take 1 tablet by mouth daily as needed for Constipation. 60 tablet 11 04/23/2021 Victoza 3-Andrew 0.6 mg/0.1 mL (18 mg/3 [...] 31 gauge x 5/16 Needle 0 03/28/2019 documented as of this encounter Plan of Treatment Not on file documented as of this encounter Procedures Procedure Name Priority Date/Time Associated Diagnosis Comments MRI PELVIS WWO (PROSTATE) Routine 06/29/2023 9:56 AM EDT Malignant neoplasm prostate documented in this encounter Results * MRI Pelvis wwo (Prostate) (06/29/2023 9:56 AM EDT) Anatomical Region Laterality Modality Pelvis Magnetic Resonan ce Impressions 06/30/2023 9:30 AM EDT No focal lesions. ??BPH. PI-RADS 2. Clinically significant cancer is unlikely to be present. PI-RADS v2.1 Assessment Categories PI-RADS 1 -- [...] cancer is highly likely to be present) References: Jocelyn S1, Letty JH1, Cutler S1, Odonnell C1, Augustin J1, Czarniecki M1, Gold S1, Fairchild G1, Rayn K1, Dariel MJ1, Gabe BJ1, Justina PA1, Iliana PL1, David B1. ??A Grading System for the Assessment of Risk of Extraprostatic Extension of Prostate Cancer at Multiparametric MRI. Radiology. 2019 Dec;290(3):709-719. doi: 10.1148/radiol.6243270554. Epub 2018Oct 26. Thank you for letting us participate in the care of this patient. ??If you are a health care provider and have any questions regarding this report, please contact the number below. ??For patients who have questions please contact the health floor care specialist that requested your imaging first. ? Narrative 06/30/2023 9:30 AM EDT EXAMINATION: MRI PELVIS WWO (PROSTATE) CLINICAL HISTORY: malignant neoplasm prostate REASON FOR PROSTATE EXAM: HAS PATIENT HAD PREVIOUS BIOPSY?:No, MOST RECENT PSA LEVEL:5.67 ALEX SCORE: TECHNIQUE: Multiparametric MRI of the prostate prior to and following IV administration of 23 cc of Dotarem contrast. ?? QUALITY: Meets PI-RADS technical criteria. COMPARISON: 08/15/2020 FINDINGS: Prostate dimensions: 6.2 x 4.2 x 5.2cm. Estimated prostate volume: 70cc (X x Y x Z x 0.52) PSA density: 0.08 (PSA/prostate volume >0.15 susp, 0.25 highly susp) Peripheral zone: T2: Linear and wedge-shaped hypointensities. No focal lesions. Combined PI-RADs: 2. Transition zone: T2: Typical encapsulated and homogenous circumscribed nodules with intervening areas of homogenous mildly hypointense signal. No focal lesions Combined PI-RADs: 2. Extraprostatic disease: N/A Other findings: Scattered sigmoid diverticula. Procedure Note Federico Hale MD - 06/30/2023 EXAMINATION: MRI PELVIS WWO (PROSTATE) CLINICAL HISTORY: malignant neoplasm prostate REASON FOR PROSTATE EXAM: HAS PATIENT HAD PREVIOUS BIOPSY?:No, MOST RECENT PSA LEVEL:5.67 ALEX SCORE: TECHNIQUE: Multiparametric MRI of the prostate prior to and following IV administration of 23 cc of Dotarem contrast. QUALITY: Meets PI-RADS technical criteria. COMPARISON: 08/15/2020 FINDINGS: Prostate dimensions: 6.2 x 4.2 x 5.2cm. Estimated prostate volume: 70cc (X x Y x Z x 0.52) PSA density: 0.08 (PSA/prostate volume >0.15 susp, 0.25 highly susp) Peripheral zone: T2: Linear and wedge-shaped hypointensities. No focal lesions. Combined PI-RADs: 2. Transition zone: T2: Typical encapsulated and homogenous circumscribednodules with intervening areas of homogenous mildly hypointense signal. No focal lesions Combined PI-RADs: 2. Extraprostatic disease: N/A Other findings: Scattered sigmoid diverticula. IMPRESSION No focal lesions. BPH. PI-RADS 2. Clinically significant cancer isunlikely to be present. PI-RADS v2.1 Assessment Categories PI-RADS 1 -- Very low (clinically significant cancer is highly unlikely dorinda present) PI-RADS 2 -- Low (clinically significant cancer is unlikely to bepresent) PI-RADS 3 -- Intermediate (the presence of clinically significant canceris equivocal) PI-RADS 4 -- High (clinically significant cancer is likely to bepresent) PI-RADS 5 -- Very high (clinically significant cancer is highly likely dorinda present) References: Jocelyn S1, Letty JH1, Cutler S1, Odonnell C1, Augustin J1, Czarniecki M1,Gold S1, Fairchild G1, Rayn K1, Dariel MJ1, Gabe BJ1, Justina PA1, Iliana PL1, David B1.A Grading System for the Assessment of Risk of Extraprostatic Extension of Prostate Cancer at Multiparametric MRI. Radiology. 2019Mar;290(3):709-719. doi: 10.1148/radiol.3998288694. Epub 2018Oct 26. Thank you for letting us participate in the care of this patient. If youare a health care provider and have any questions regarding this report,please contact the number below. For patients who have questions please contactthe health floor care specialist that requested your imaging first. Scott Hernandez MD IMG MRI ORDERABLES documented in this encounter Visit Diagnoses Diagnosis Malignant neoplasm prostate Malignant neoplasm of prostate documented in this encounter Administered Medications Inactive Administered Medications - up to 3 most recent administrations Medication Order MAR Action Action Date Dose Rate Site gadoterate meglumine (Dotarem) (0.5 mMol/mL) injection solution 0-100 mL 0-100 mL, Intravenous, ONCE PRN, 1 dose, Starting on Thu06/29/23 at 1019, Until Thu06/29/23 at 1019, Per Protocol, Radiology Contrast, Routine Given 06/29/2023 10:19 AM EDT 23 mLs documented in this encounter Care Teams Weeder Thinner Relationship Specialty Start Date End Date Pillo Rabago PA PCP - General General Internal Medicine 08/05/19 documented as of this encounter
--- OUTSIDE RECORDS SUMMARY | 2024-07-01 10:25 | XMS_ITS | Encounter Summary ---
[facility] [place] [address] Care Team Providers Care Tassel Clipper Name Role Phone Pillo Rabago Primary Care Provider [phone] Encounter Details Date Type Department Care Team (Latest Contact Info) Description 06/22/2023 Travel Social History Tobacco Use Types Packs/Day Years [...] on filedocumented in this encounter Care Teams Tassel Clipper Relationship Specialty Start Date End Date Pillo Rabago PA PCP - General General Internal Medicine 08/05/19 documented as of this encounter
--- OUTSIDE RECORDS SUMMARY | 2024-07-01 10:25 | XMS_ITS | Encounter Summary ---
Author Organization [facility] [place] [address] Care Team Providers Care Beauty Operator Name Role Phone Pillo Rabago Primary Care Provider Encounter Details Date Type Department Care Team (Latest Contact Info) Description 05/22/2021 9:00 AM EDT Procedure [place] [id number] Anterior urethral stricture Social History Tobacco Use Types Packs/Day Years [...] AM EDT documented as of this encounter Last Filed Vital Signs Vital Sign Reading Time Taken Comments Blood Pressure 114/68 05/22/2021 9:43 AM EDT Pulse 78 05/22/2021 9:43 AM EDT Temperature 36.6 ??C (97.8 ??F) 05/22/2021 9:43 AM ED T Respiratory Rate - - Oxygen Saturation - - Inhaled Oxygen Concentration - - Weight - - Height - - Body Mass Index - - documented in this encounter Progress Notes * Nicole Gamboa LPN - 05/22/2021 9:00 AM EDT Objective: Patient presents today for a RUG. This is a well looking male in no acute distress. Per Dr. Garsia,one preventative dose of Cipro 500mg has been given prior to cystogram. Urodynamics/Injection of Contrast The patient was filled via casas. Contrast was used 50 ml of iohexol (omnipaque) 350mg/ml in 50 of sterile water. In this patient we used: Solution Ml of contrast 50 12.5 Cystogram: MGy: 3.72; mGym2; 0.0669; fluoro time: 0.1 minutes. Findings: No leak Voiding trial performed PVR: 90 cc measured in the supine position with the bladder scanner shortly after the patient had voided. Follow-up: in [address] Garsia. Nicole Gamboa LPN documented in this encounter Plan of Treatment Not on file documented as of this encounter Visit Diagnoses Diagnosis Anterior urethral stricture documented in this encounter Administered Medications Inactive Administered Medications - up to 3 most recent administrations Medication Order MAR Action Action Date Dose Rate Site iohexoL (Omnipaque) (350 mg/mL) injection solution 12.5 mL 12.5 mL, Other, ONCE PRN, 1 dose, Starting on Thu05/22/21 at 1329, Until Thu05/22/21 at 1329, Per Protocol, Warning Vesicant/Irritant Medication , Routine Given 05/22/2021 1:29 PM EDT 12.5 mLs documented in this encounter Care Teams Beauty Operator Relationship Specialty Start Date End Date Pillo Rabago PA PCP - General General Internal Medicine 08/05/19 documented as of this encounter
--- OUTSIDE RECORDS SUMMARY | 2024-07-01 10:25 | XMS_ITS | Encounter Summary ---
Author Organization [facility] [place] [address] Care Team Providers Care Social Welfare Research Worker Name Role Phone Pillo Rabago Primary Care Provider [phone] Reason for Visit * Consultation (Routine) - Closed Specialty Diagnoses / Procedures Referred By Contac t Referred To Contact General Surgery Diagnoses Open wound of scalp, unspecified open wound type, initial encounter Ed Nichols MD [facility] [id number] Sudeep Ken MD [facility] [place] [id number] Referral ID Status Reason Start Date Expiration Date V isits Requested Visits Authorized [id number] Closed Consult, Test & Treat 08/05/2019 08/04/2020 1 1 Encounter Details Date Type Department Care Team (Late st Contact Info) Description 08/09/2019 1:30 PM EST Office Visit General Surgery at [place] [phone] Sudeep Ken MD [facility] [place] [id number] Fibrosarcoma Social History Tobacco Use Types Packs/Day Years [...] Sign Reading Time Taken Comments Blood Pressure 120/74 08/09/2019 1:15 PM EST Pulse 96 08/09/2019 1:15 PM EST Temperature 36.7 ??C (98 ??F) 08/09/2019 1:15 PM EST Respiratory Rate 16 08/09/2019 1:15 PM EST Oxygen Saturation 95% 08/09/2019 1:15 PM EST Inhaled Oxygen Concentration - - Weight 116.1 kg (256 lb) 08/09/2019 1:15 PM EST Height - - Body Mass Index 36.73 08/05/2019 2:51 PM EDT documented in this encounter Progress Notes * Sudeep Ken MD - 08/09/2019 1:30 PM EST Attached media from the original note were not included. Wound image documented in this encounter H&P Notes * Sudeep Ken MD - 08/09/2019 1:30 PM EST Images from the original note were not included. Surgical Oncology Consultation Note Reason for Visit: Topher Mosley is a 64 y.o. male seen at the request of Ed Nichols for evaluation of LEFT scalp wound and history of fibrosarcoma. History of the present illness: Topher Mosley is a 64 y.o. 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 He was in usual state of health until about 2-3 weeks ago when he noted oozing wound on posterior scalp, ovelying skin graft. He was started on antibiotics and referred to plastic surgery. Given history of fiborsarcoma and potential for local recurrence, patient then sent to me for further evaluation. Patient has been on Bactrim for ~1week andhas been applying silvadene for past 3 days. believes lesions is getting slightly better but not significantly. He is accompanied to this visit by his . Active Ambulatory Problems Diagnosis Date Noted ??? No Active Ambulatory Problems Resolved Ambulatory Problems Diagnosis Date Noted ??? No Resolved Ambulatory Problems Past Medical History: Diagnosis Date ??? BPH (benign prostatic hyperplasia) ??? Diabetes mellitus ??? Fibrosarcoma 1985 ??? Obstructive sleep apnea ??? Osteomyelitis of cervical spine 2010 Past Surgical History: Procedure Laterality Date ??? SOFT TISSUE TUMOR RESECTION 1985 Resection of scalp fibrosarcoma, with rotational flap and skin graft closure Review of systems: A 12 point comprehensive ROS was reviewed with the patient. It was otherwise negative except for what was stated in the HPI. he otherwise denies high blood pressure, heart disease,lung disease, diabetes, and infectious diseases. Current Outpatient Medications: ??? sulfamethoxazole-trimethoprim (BACTRIM DS) 800-160 mg Tablet, Take 1 tablet by mouth 2 times daily for 10 days., Disp: 20 tablet, Rfl: 0 ??? insulin glargine (LANTUS SOLOSTAR U-100 INSULIN) 100 unit/mL (3 mL) pen, Inject subcutaneously nightly. 30 units twice daily, Disp: , Rfl: ??? metFORMIN (GLUCOPHAGE) 500 mg Tablet, Take 500 mg by mouth 2 times daily (with meals)., Disp: ,Rfl: ??? venlafaxine (EFFEXOR-XR) 150 mg Capsule, Sust. Release 24 hr, Take 150 mg by mouth daily., Disp: , Rfl: ??? pregabalin (LYRICA) 300 mg Capsule, Take 300 mg by mouth 2 times daily., Disp: , Rfl: ??? sucralfate (CARAFATE) 1 gram Tablet, , Disp: , Rfl: ??? testosterone (ANDROGEL) 20.25 mg/1.25 gram (1.62 %) Gel in Metered-dose Pump, , Disp: , Rfl: ??? omeprazole (PRILOSEC) 40 mg Capsule, Delayed Release(E.C.), , Disp: , Rfl: ??? rosuvastatin (CRESTOR) 5 mg Tablet, , Disp: , Rfl: ??? tamsulosin (FLOMAX) 0.4 mg Capsule, , Disp: , Rfl: ??? BD ULTRA-FINE SHORT PEN NEEDLE 31 gauge x 5/16 Needle, , Disp: , Rfl: 0 ??? silver sulfADIAZINE (SILVADENE) 1 % Cream, Apply a thin layer of silvadene to scalp wound twicedaily., Disp: 50 g, Rfl: 3 Allergies: No Known Allergies Social History: Social History Socioeconomic History ??? Marital status: Spouse name: Not on file ??? Number of children: Not on file ??? Years of education: Not on file ??? Highest education level: Not on file Occupational History ??? Not on file Social Needs ??? Financial resource strain: Not on file ??? Food insecurity: Worry: Not on file Inability: Not on file ??? Transportation needs: Medical: Not on file Non-medical: Not on file Tobacco Use ??? Smoking status: Former Smoker Types: Cigarettes ??? Smokeless tobacco: Never Used ??? Tobacco comment: August of 2014 quit Substance and Sexual Activity ??? Alcohol use: Not on file ??? Drug use: Not on file ??? Sexual activity: Not on file Lifestyle ??? Physical activity: Days per week: Not on file Minutes per session: Not on file ??? Stress: Not on file Relationships ??? Social connections: Talks on phone: Not on file Gets together: Not on file Attends jehovah's witness service: Not on file Active member of club or organization: Not on file Attends meetings of clubs or organizations: Not on file Relationship status: Not on file ??? Intimate partner violence: Fear of current or ex partner: Not on file Emotionally abused: Not on file Physically abused: Not on file Forced sexual activity: Not on file Other Topics Concern ??? Not on file Social History Narrative ??? Not on file No family history on file. Physical Examination: Constitutional: This is a 64 y.o. male in no apparent distress. BP 120/74 (BP Location (NBP): Right arm) Pulse 96 Temp 36.7 ??C (98 ??F) Resp 16 Wt 116.1 kg (256 lb) SpO2 95% BMI 36.73 kg/m?? Lymphatic basin exam: There was no palpable adenopathy in the bilateral supraclavicular, cervical, axillary or inguinal regions. Eyes: anicteric, extra ocular movements are intact Neuro: No focal deficits. Hearing and speech intact Psych: the patient is alert and oriented. Normal affect. Heart: Regular rate and rhythm. No peripheral edema Lungs: Clear bilaterally with good air intake Abdomen: Soft, non-tender, non-distended. There are normal active bowel sounds, no hepatosplenomegaly. Musculoskeletal: The patient has normal gait, range of motion, and muscle strength Skin: warm, dry, good turgor, non-icteric. Focused Skin Exam Assessment and plans: Topher Mosley is a 64 y.o. year old male PMH significant for fibrosarcoma (1985), osteomylelitis of cervical spine (2010), presenting today with wound of posterior scalp. The lesion is concerningfor recurrent tumor although area is also extremely thin overlying cranium. At this point, plan to continue antibiotics, silvadene. RTC in 1 week for evaluation and if not significant improvement will proceed to biopsy under controlled conditions the following day. Risks/benefits of procedure were discussed at length, consent signed. Additional plans pending operative findi ngs. Sudeep Ken MD, MPH Surgical Oncology documented in this encounter Plan of Treatment Not on file documented as of this encounter Visit Diagnoses Diagnosis Fibrosarcoma Malignant neoplasm of connective and other soft tissue, site unspecified documented in this encounter Care Teams Social Welfare Research Worker Relationship Specialty Start Date End Date Pillo Rabago PA PCP - General General Internal Medicine 08/05/19 documented as of this encounter
--- OUTSIDE RECORDS SUMMARY | 2024-07-01 10:25 | XMS_ITS | Encounter Summary ---
Author Organization [facility] [place] [address] Care Team Providers Care Gear Hobber Operator Name Role Phone Pillo Rabago Primary Care Provider [phone] Reason for Visit * Reason Comments Urethral Stricture * Consultation (Routine) - Closed Specialty Diagnoses / Procedures Referred By Amanda ricks Referred To Contact Urology Diagnoses URETHRAL STRICTURE Scott Hernandez MD [address] [place] [id number] Calvin Garsia III, MD [facility] [place] [address] Referral ID Status Reason Start Date Expiration Date Visits Re quested Visits Authorized [id number] Closed 05/07/2020 05/07/2021 1 1 Encounter Details Date Type Department Care Team (Late st Contact Info) Description 08/15/2020 1:40 PM EST [place] [address] Calvin Garsia III, MD [facility] [place] [place] [address] Stricture of anterior urethra in male, unspecified [...] AM EDT documented as of this encounter Patient Instructions * Patient Instructions* Freya López RN - 08/15/2020 1:40 PM EST Instructions following Cystoscopy Activity: As tolerated by your comfort level. Fluids: You should increase your water today. Avoid coffee, tea and cola. You do not need to ounces of water today. Urination: You will likely have a small amount of blood in your urine for the next several days. This is normal; however, if you are passing large amounts of blood clots or are unable to void please call our office at [phone] before 5PM or [phone] after hours. Please call if: * you have copious blood in your urine * fevers greater than 101.3 F * you are unable to void The number for questions is [phone] before 5 PM weekdays and [phone] after 5 PM and weekends. Follow-up: surgery documented in this encounter Procedure Notes * Calvin Garsia III, MD - 08/15/2020 1:40 PM ESTAssociated Order(s): CYSTOSCOPY Pre-Procedure Diagnose(s): Stricture of anterior urethra in male, unspecified stricture type [place] is a 65-year-old gentleman referred for evaluation of an anterior urethral stricture. Procedure: Patient was taken to the [facility] cystoscopy suite where he was appropriately identified. Consent form was signed. In the supine position he was prepped and draped in usual sterile fashion. Thescope was inserted into the urethral meatus and passed without difficulty through the penile urethra. In the mid to proximal bulb a small approximately 6-8 Serbian aperture was identified. Clearly represented the distal end of the stricture. No attempt was made to pass the scope through the strictured urethra he also have agreed not to dilate the stricture in anticipation of a definitive reconstructive surgery. At the end of the procedure the scope was removed without incident and the patient tolerated the procedure well. : 65-year-old gentleman with a history of recurrent bulbomembranous urethral stricture. documented in this encounter Plan of Treatment Not on file documented as of this encounter Procedures Procedure Name Priority Date/Time Associated Diagnosis Comments CYSTOSCOPY Routine 08/15/2020 1:40 PM EST Stricture of anterior urethra in male, unspecified stricture type documented in this encounter Results * Cystoscopy (08/15/2020 1:40 PM EST) Narrative Calvin Garsia III, MD - 08/15/2020 1:40 PM EST Calvin Garsia III, MD ? 08/21/2020 ??2:37 PM [place] is a 65-year-old gentleman referred for evaluation of an anterior urethral stricture. Procedure: Patient was taken to the [facility] cystoscopy suite where he was appropriately identified. ??Consent form was signed. ??In the supine position he was prepped and draped in usual sterile fashion. ??The scope was inserted into the urethral meatus and passed without difficulty through the penile urethra. ??In the mid to proximal bulb a small approximately 6-8 Serbian aperture was identified. ??Clearly represented the distal end of the stricture. No attempt was made to pass the scope through the strictured urethra he also have agreed not to dilate the stricture in anticipation of a definitive reconstructive surgery. At the end of the procedure the scope was removed without incident and the patient tolerated the procedure well. : 65-year-old gentleman with a history of recurrent bulbomembranous urethral stricture. Calvin Garsia III, MD PROCEDURE DANIEL PERSAUD documented in this encounter Visit Diagnoses Diagnosis Stricture of anterior urethra in male, unspecified stricture type documented in this encounter Care Teams Gear Hobber Operator Relationship Specialty Start Date End Date Pillo Rabago PA PCP - General General Internal Medicine 08/05/19 documented as of this encounter
--- OUTSIDE RECORDS SUMMARY | 2024-07-01 10:25 | XMS_ITS | Encounter Summary ---
Author Organization [facility] [place] [address] Care Team Providers Care Dry Kiln Worker Name Role Phone Pillo Rabago Primary Care Provider Reason for Visit * Reason Comments Urethral Stricture * Consultation (Routine) - Closed Specialty Diagnoses / Procedures Referred By Amanda ricks Referred To Contact Urology Diagnoses URETHRAL STRICTURE Scott Hernandez MD [address] [place] [id number] Calvin Garsia III, MD [facility] [place] [address] Referral ID Status Reason Start Date Expiration Date Visits Re quested Visits Authorized [id number] Closed 05/07/2020 05/07/2021 1 1 Encounter Details Date Type Department Care Team (Late st Contact Info) Description 08/15/2020 1:00 PM EST [place] [address] Calvin Garsia III, MD [facility] [place] [address] Anterior urethral stricture Social History Tobacco Use [...] Sign Reading Time Taken Comments Blood Pressure 133/87 08/15/2020 1:04 PM EST Pulse 96 08/15/2020 1:04 PM EST Temperature - - Respiratory Rate - - Oxygen Saturation - - Inhaled Oxygen Concentration - - Weight - - Height - - Body Mass Index - - documented in this encounter Progress Notes * Calvin Garsia III, MD - 08/15/2020 1:00 PM EST [place] is a 65-year-old gentleman referred by Dr. Hernandez for evaluation of an anterior urethral stricture. This gentleman has had a lifelong history of a lower urinary tract symptoms. He remembersexperiencing fairly significant dysuria as a child in [place]. Received in no treatment there and at some point emigrated to the [place]. He states that he has always had obstructive lower urinarysymptoms, specifically weak stream, hesitancy and intermittent this has abated. Over the last few years he has had developed a number of significant urinary tract infections. He has had least of 1 endoscopic procedure in the past. Earlier this year (October 2019) and Dr. Hernandez performed a cystoscopy with dilation of what appeared to be a bulbomembranous urethral stricture. Patient recalls a voiding well for approximately 1 month following the procedure. However his stream has slowed again as he experiences significantly weakened stream with dribbling and a sense of incomplete emptying. Of note a few weeks ago while straining to move his bowels he felt a pop in his groin followed bygross hematuria. His last serious infection was approximately 1 year ago. His past medical history is significant for a history of prostate cancer which has been managed with watchful waiting. While living in [place] he had a prostate biopsy for what appeared to be an elevated PSA. He states that no treatment was recommended. Dr. Hernandez has ordered multiparametric MRI to assess the present state of prostate cancer activity. His other significant medical issue is diabetes which he states is poorly controlled. He is insulin-dependent but runs a consistently high morning blood sugars. He states that his last A1c was 7. Unit. Obese gentleman in no acute distress Abdomen: Soft, nontender Genitalia: Penis: Normal male phallus meatus is in the orthotopic location. Scrotum: Cycles are descended and there are no palpable lesions. There is no evidence of significant skin yeast infection. Cystoscopy was performed. Please see procedure narrative. Assessment: 65-year-old gentleman with a recurrent proximal bulbar urethral stricture. We discussedthe options for treatment and management. Disinclined to engage in a self obturation Program. He seems most interested in a definitive repair. We have discussed 1 stage urethroplasty with excision ofprimary anastomosis as well as substitution grafting. He understands that the decision to primarilyrepair versus augmentation grafting is a function of the length of the stricture identified at the time of surgery. We have discussed risks of the procedure including failure rates. We have briefly discussed periprocedural issues including hospitalization convalescence to catheter removal. Informed him that surgery would likely be carried out in October 2020. Plan: Patient has an appointment upcoming with Dr. Hernandez will discuss. At that point he will get back to us so regarding his decision and plans for surgery. documented in this encounter Plan of Treatment Not on file documented as of this encounter Visit Diagnoses Diagnosis Anterior urethral stricture documented in this encounter Care Teams Dry Kiln Worker Relationship Specialty Start Date End Date Pillo Rabago PA PCP - General General Internal Medicine 08/05/19 documented as of this encounter
--- OUTSIDE RECORDS SUMMARY | 2024-07-01 10:25 | XMS_ITS | Encounter Summary ---
[place] [address] Care Team Providers Care Director [facility] Name Role Phone Pillo Rabago Primary Care Provider [phone] Reason for Referral * Diagnostic Test (Emergency) - Closed Specialty Diagnoses / Procedures Referred By Contac t Referred To Contact Radiology Diagnoses Fibrosarcoma Intractable headache, unspecified chronicity pattern, unspecified headache type Procedures MRI Cervical Spine wwo Contrast Sudeep Ken MD [facility] [place] [address] [place] [address] Referral ID Status Reason Start Date Expiration Date V isits Requested Visits Authorized [id number] Closed Specialty Service Requested 1 1 * Diagnostic Test (Emergency) - Closed Specialty Diagnoses / Procedures Referred By Contac t Referred To Contact Radiology Diagnoses Fibrosarcoma Intractable headache, unspecified chronicity pattern, unspecified headache type Procedures MRI Brain wwo Contrast (Generic) Sudeep Ken MD [facility] [address] [place] [address] Referral ID Status Reason Start Date Expiration Date V isits Requested Visits Authorized [id number] Closed Specialty Service Requested 1 1 Reason for Visit * Diagnostic Test (Emergency) - Closed Specialty Diagnoses / Procedures Referred By Contac t Referred To Contact Radiology Diagnoses Fibrosarcoma Intractable headache, unspecified chronicity pattern, unspecified headache type Procedures MRI Brain wwo Contrast (Generic) Sudeep Ken MD [facility] [place] [address] [facility] [place] [address] Referral ID Status Reason Start Date Expiration Date V isits Requested Visits Authorized [id number] Closed Specialty Service Requested 1 1 Encounter Details Date Type Department Care Team (Latest Contact Info) Description 10/19/2019 1:38 PM EST - 10/19/2019 11:59 PM EST Hospital [place] [address] Sudeep Ken MD [facility] [place] [address] Fibrosarcoma; Intractable headache, unspecified chronicity pattern, unspecified headache type Discharge Disposition: Home Social History Tobacco Use [...] Sig Dispensed Refills Start Date End Date insulin glargine (LANTUS SOLOSTAR U-100 INSULIN) 100 [...] x 5/16 Needle 0 03/28/2019 FLUZONE HIGH-DOSE 2018-, PF, 180 mcg/0.5 mL Syringe inject 0.5 milliliters intramuscularly 0 07/01/2019 11/29/2021 documented as of this encounter Plan of Treatment Not on file documented as of this encounter Procedures Procedure Name Priority Date/Time Associated Diagnosis Comments MRI CERVICAL SPINE WITH/WO CONTRAST STAT 10/19/2019 3:35 PM EST Fibrosarcoma Intractable headache, unspecified chronicity pattern, unspecified headache type MRI BRAIN WWO CONTRAST (GENERIC) STAT 10/19/2019 3:35 PM EST Fibrosarcoma Intractable headache, unspecified chronicity pattern, unspecified headache type documented in this encounter Results * MRI Cervical Spine wwo Contrast (10/19/2019 3:35 PM EST) Anatomical Region Laterality Modality C-spine Magnetic Resonan ce Impressions 10/19/2019 4:10 PM EST Cervical spondylosis. No evidence of discitis osteomyelitis or suspicious marrow lesion. Thank you for letting us participate in the care of this patient. For questions regarding this report, please contact the number below. ? Electronically signed by: Maria Elena Tena [facility] ([phone]), at 10/19/2019 4:10 PM Narrative 10/19/2019 4:10 PM EST EXAMINATION: MRI CERVICAL SPINE WWO CONTRAST CLINICAL HISTORY: Patient with hx of fibrosarcoma of scalp s/p resection. Also hx of osteomyelitis of C3 and C4. Now with recurrent severe headache consistent wtih prior episodes. ? osteomylelitis vs tumor TECHNIQUE: MRI of the cervical spine was performed before and after the intravenous administration of 22cc Dotarem. COMPARISON: None FINDINGS: Alignment is normal. Acquired fusion of C3-4. Endplate marrow edema C6-7 related to disc degeneration. Cervical cord signal is normal. No significant abnormal enhancement. C2-3: No significant stenosis. C3-4: No significant stenosis. C4-5: Central disc protrusion contributing to mild central canal stenosis. C5-6: Posterior discussed by complex and ligamentous redundancy contributing to moderate moderate central canal stenosis. Uncovertebral arthropathy contributing to moderate right and severe left neural foraminal stenosis. C6-7: Uncovertebral arthropathy contributing to moderate left foraminal stenosis. C7-T1: Uncovertebral facet arthropathy contributing to moderate left and mild right neural foraminal stenosis. Procedure Note Maria Elena Tena MD - 10/19/2019 EXAMINATION: MRI CERVICAL SPINE WWO CONTRAST CLINICAL HISTORY: Patient with hx of fibrosarcoma of scalp s/p resection.Also hx of osteomyelitis of C3 and C4. Now with recurrent severe headacheconsistent wtih prior episodes. ? osteomylelitis vs tumor TECHNIQUE: MRI of the cervical spine was performed before and after the intravenous administration of 22cc Dotarem. COMPARISON: None FINDINGS: Alignment is normal. Acquired fusion of C3-4. Endplate marrow edema C6-7related to disc degeneration. Cervical cord signal is normal. No significantabnormal enhancement. C2-3: No significant stenosis. C3-4: No significant stenosis. C4-5: Central disc protrusion contributing to mild central canalstenosis. C5-6: Posterior discussed by complex and ligamentous redundancycontributing to moderate moderate central canal stenosis. Uncovertebral arthropathycontributing to moderate right and severe left neural foraminal stenosis. C6-7: Uncovertebral arthropathy contributing to moderate left foraminal stenosis. C7-T1: Uncovertebral facet arthropathy contributing to moderate left andmild right neural foraminal stenosis. IMPRESSION Cervical spondylosis. No evidence of discitis osteomyelitis or suspiciousmarrow lesion. Thank you for letting us participate in the care of this patient. Forquestions regarding this report, please contact the number below. Electronically signed by: Maria Elena Tena [facility]([phone]), at 10/19/2019 4:10 PM Sudeep Ken MD [facility] MRI ORDERABLES * MRI Brain wwo Contrast (Generic) (10/19/2019 3:35 PM EST) Anatomical Region Laterality Modality Head Magnetic Resonan ce Impressions 10/19/2019 4:02 PM EST No intracranial abnormality. Question abnormal calvarium underlying the craniotomy defect. Correlation with CT recommended. Comparison with priors would be helpful. Thank you for letting us participate in the care of this patient. For questions regarding this report, please contact the number below. ? 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 Now with wound issues and significant headache. TECHNIQUE: MRI of the brain was performed before and after the intravenous administration of 22cc Dotarem. COMPARISON: None FINDINGS: No acute infarction, mass, mass effect. Several sites of subcortical white matter are present, nonspecific finding often attributed to chronic microvascular disease. Ventricles and extra-axial spaces are normal. Major intracranial flow voids are normal. No significant abnormal enhancement. Left parietal/occipital region extra calvarial soft tissue defect. Calvarium is thin in this region, question abnormal marrow. Correlation with a CT is recommended. No extra calvarial soft tissue mass. 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 TECHNIQUE: MRI of the brain was performed before and after the intravenousadministration of 22cc Dotarem. COMPARISON: None FINDINGS: No acute infarction, mass, mass effect. Several sites of subcorticalwhite matter are present, nonspecific finding often attributed to chronic microvascular disease. Ventricles and extra-axial spaces are normal.Major intracranial flow voids are normal. No significant abnormal enhancement. Left parietal/occipital region extra calvarial soft tissue defect.Calvarium is thin in this region, question abnormal marrow. Correlation with a CT is recommended. No extra calvarial soft tissue mass. IMPRESSION No intracranial abnormality. Question abnormal calvarium underlying the craniotomy defect. Correlationwith CT recommended. Comparison with priors would be helpful. Thank you for letting us participate in the care of this patient. Forquestions regarding this report, please contact the number below. Electronically signed by: Maria Elena Tena, [facility]([phone]), at 10/19/2019 4:02 PM Sudeep Ken MD [facility] MRI ORDERABLES documented in this encounter Visit Diagnoses Diagnosis Fibrosarcoma Malignant neoplasm of connective and other soft tissue, site unspecified Intractable headache, unspecified chronicity pattern, unspecified headache type documented in this encounter Administered Medications Inactive Administered Medications - up to 3 most recent administrations Medication Order MAR Action Action Date Dose Rate Site gadoterate meglumine (DOTAREM) 0.5 mmol/mL (376.9 mg/mL) injection 0-100 mL 0-100 mL, Intravenous, ONCE PRN, 1 dose, Starting on Thu10/19/19 at 1535, Until Thu10/19/19 at 1535, Per Protocol, Radiology Contrast, Routine Given 10/19/2019 3:35 PM EST 22 mLs documented in this encounter Care Teams Director [facility] Relationship Specialty Start Date End Date Pillo Rabago PA PCP - General General Internal Medicine 08/05/19 documented as of this encounter
--- OUTSIDE RECORDS SUMMARY | 2024-07-01 10:25 | XMS_ITS | Continuity of Care Document ---
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 Phone [facility] Primary [facility] Physician Encounter [facility] [id number] Date(s): 02/22/24 - 02/22/24 [facility] [address] [place] [address] Encounter Diagnosis Obstructive sleep apnea syndrome(Discharge Diagnosis) - 02/16/24 Obstructive sleep apnea (adult) (pediatric)(Final) - Discharge Disposition: Home or Self Care Attending Physician: Tamy Marshall NP Referring Physician: [facility] Allergies, Adverse Reactions, Alerts No Known Medication Allergies Assessment and Plan Extracted from: Title:Clinic - Office Visit Note Author:Ricky Marshall NP Date:02/22/24 1.??Obstructive sleep apnea syndrome??G47.33 ??TOSHIA diagnosed in 2018 with an AHI of 65.3/hr. He has been treated with BiPAP Imax 18 cm, Theodore 12 cm, PS 5 cm. He has excellent compliance and reduction in AHI. He feels he can't sleep without BiPAP and continued use is recommended.??His weight is up slightly and he feels he needs more pressure and he is maxing out his setting so I set BiPAP to Imax 22 cm, Theodore 14 cm, PS 5 cm.?He benefits from BiPAP and continued use is recommended. He is advised to keep up with the routine maintenance of the machine and to clean/replace parts as needed. I will see him back in one year. He is asked to call our office for any sleep related questions or concerns. I provided greater than 30 minutes in the care of this patient, more than half the time was spent in [id number] counseling. Actions: COMPLETED - [id number] Office/Outpatient Visit - Established Patient, Level 4 (30-39 min)., 02/22/24 9:04:00 EDT, Obstructive sleep apnea syndrome FUTURE - Follow-Up Appointment Request NCTY, *Est. 02/21/25 +/- 28 days, Future Order, In [facility] COMPLETED - Referral Management, Medical Service: Other, Reason: Dispense all BiPAP supplies as needed. FYI I set BiPAP to Imax 22 cm, Theodore 14 cm, PS 5 cm [employer], Start: 02/22/24 ?? Future Appointments Immunizations Given and Recorded Vaccine Date Status Refusal Reason SARS-CoV-2 (COVID-19) mRNA-1273 vaccine 01/14/21 R ecorded SARS-CoV-2 (COVID-19) mRNA-1273 vaccine 12/18/20 R ecorded varicella virus vaccine 10/08/20 Recorded zoster vaccine, inactivated 07/23/20 Recorded influenza virus vaccine, live 07/23/20 Recorded influenza virus vaccine, live 07/01/19 Recorded influenza virus vaccine, live 07/05/18 Recorded pneumococcal 13-valent conjugate vaccine 08/19/19 Recorded Medications Accucheck Test Strips Supply, 1 EA, N/A, As Directed, PRN As Needed, 0 Refill(s) Start Date: 10/23/23 Status: Ordered Effexor XR 150 mg oral capsule, extended release 150 mg = 1 cap, Oral, Daily, # 30 cap, 0 Refill(s) Start Date: 10/23/23 Status: Ordered finasteride 5 mg oral tablet 5 mg = 1 tab, Oral, Daily, # 90 tab, 3 Refill(s), Pharmacy: [facility] Start Date: 07/02/23 Stop Date: 06/26/24 Status: Ordered finasteride 5 mg oral tablet 5 mg = 1 tab, Oral, Daily, # 90 tab, 3 Refill(s), Pharmacy: [facility], 180, cm, 08/08/22 9:04:00 EDT, Height Start Date: 08/03/23 Stop Date: 07/28/24 Status: Ordered HumaLOG KwikPen 0 Refill(s) Start Date: 10/23/23 Status: Ordered Lantus Solostar Pen 100 units/mL subcutaneous solution 0 Refill(s) Start Date: 10/23/23 Status: Ordered Lyrica 300 mg oral capsule 300 mg = 1 cap, Oral, BID, 0 Refill(s) Start Date: 10/23/23 Status: Ordered metFORMIN 500 mg oral tablet 0 Refill(s) Start Date: 10/23/23 Status: Ordered omeprazole 0 Refill(s) Start Date: 10/23/23 Status: Ordered Pen Needle Supply, See instructions, # 1 EA, 0 Refill(s) Start Date: 10/23/23 Status: Ordered rosuvastatin 5 mg oral tablet 0 Refill(s) Start Date: 10/23/23 Status: Ordered sucralfate 1 g oral tablet 0 Refill(s) Start Date: 10/23/23 Status: Ordered tamsulosin 0.4 mg oral capsule 0 Refill(s) Start Date: 10/23/23 Status: Ordered tamsulosin 0.4 mg oral capsule 0.8 mg = 2 cap, Oral, Daily, # 180 cap, 3 Refill(s), Pharmacy: [facility] Start Date: 04/29/23 Stop Date: 04/23/24 Status: Ordered Trulicity Pen 1.5 mg/0.5 mL subcutaneous solution 0 Refill(s) Start Date: 10/23/23 Status: Ordered Problem List Condition Confirmation Course Effective Dates Status Health Status Informant Chronic insomnia Confirmed Active Dream enactment behavior Confirmed 07/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 Hypertriglyceridemia Confirmed 06/23/18 Active Impingement syndrome of right shoulder region Confirmed Active Kidney stone Confirmed Active Large prostate Confirmed Active Liver function tests abnormal Confirmed 09/14/18 Active Malignant tumor of prostate Confirmed Active Neuropathy due to type 2 diabetes mellitus Confirmed Active Obesity Confirmed Active Obstructive sleep apnea syndrome 1 Confirmed Active Osteomyelitis Confirmed 06/24/18 Active Poliosis Confirmed 06/24/18 Active Raised prostate specific antigen Confirmed 08/19/19 Active Right knee pain Confirmed Active Skin ulcer Confirmed 08/02/19 Active Testicular hypofunction Confirmed Active Type 2 diabetes mellitus without complication Confirmed Active 1BiPAP Imax 22 cm, Theodore 14 cm, PS 5 cm [facility] Procedures Procedure Date Related Diagnosis Body Site [...] Comp leted Hemorrhoidectomy Complete d [facility] Calvin G[facility]ia 2DrBrianna Hernandez 35 year follow up- rectal polyp - tubular adenoma; 10-05-1999 4GERD with esophagitis, ulcerative esophagitis, acute erosive gastritis 5erosive esophagitis 48737 7; 2006. 2 arthroscopic surgeries on the right and one on the left. Meniscus repairs 8left scalp, fibro sarcoma Vital Signs Most recent to oldest [Reference Range]: 1 Peripheral Pulse Rate [60-100 bpm] 69 bp m (02/22/24 9:17 AM) Blood Pressure [90-140/60-90 mmHg] 149/8 4mmHg *HI* (02/22/24 9:17 AM) Mean Arterial Pressure, Cuff [65-140 mmH g] 106 mmHg (02/22/24 9:17 AM) Weight 111.13 kg (02/22/24 9:17 AM) Weight Measured (lbs) 244.999 lb (02/22/24 9:17 AM) Weight Dosing 111.130 kg (02/22/24 9:17 AM) Height 179 cm (02/22/24 9:17 AM) Height/Length Measured (inches) 70.47 in ch (02/22/24 9:17 AM) BSA Measured 2.35 m2 (02/22/24 9:17 AM) Body Mass Index 34.68 kg/m2 (02/22/24 9:17 AM) Social History Social History Type Response Tobacco Never tobacco user T obacco Use:. Sex Male Progress note * Scott Hager M: PERFORM Event Display: Progress Note - Physician Authored Date: [id number] Physician Outpatient Note * Tamy Marshall [employer]CULAR [employer]WYER [employer]ONE: PERFORM Event Display: Office Clinic Note Physician Authored Date: [id number] THOMAS MOSLEY :1955 Age:68 years Sex:Male Visit Date:02/22/2024 Primary Care Physician: [facility] V[facility] History of Present Illness Landen Mosley has a visit today for TOSHIA follow-up. ?? Landen was last seen by me on 08/08/2022. ?? Split night study on 07/08/18 (BMI 37.6), sleep efficiency 95%, pre-CPAP AHI 65.3/hr, 02 brenda 69%, arousal index 16/hr. CPAP titrated from 7 to 16 cm and at 16 cm was ???marginally effective. BiPAP 16/12 cm was successful in eliminating all significant events and desaturations including in supine REM sleep. CPAP tried and failed and BiPAP Imax 18 cm, Theodore 6 cm, PS 4 cm recommended. No parasomnias or increase in muscle tone noted during the study. ?? He has chronic insomnia and has failed zaleplon, zolpidem and doxepin in the past. Last visit he was using BiPAP 18/12/5 cm with great compliance and reduction in AHI. His humidifier latch was not working and he was to be getting a new/replacement BiPAP.? Landen tells me he is using his BiPAP every night. He says he occasionally feels like he needs more air pressure to start. He is not using the ramp. His weight has increased about 15 lbs. He gets to bed aorund 8 pm, he falls asleep in 5 minutes. He wakes up 0/night. He gets up by 4 am to start his day. He feels well rested but occasionally will take a nap for up to two hours. He is occasionally snoring with BiPAP. He is occasionally waking with headcahes. He does not have night sweats, nocturia or nocturnal reflux.?? He uses a FFM and has gotten used to it. He gets supplies from [facility].? He eventually got his replacement through the recall.? ESS today 11/28 COMPLIANCE DATA REVIEWED WITH PATIENT: Dates 01/23/24-02/21/24, Used 30/30 nights, average use 8 hrs and 28 minutes. 90th percentile pressure 18/13 cm, time in large air leak 0 minutes, AHI 1.4/hr. Physical Exam Vitals & Measurements HR:??69??(Peripheral)?? BP:??149/84?? SpO2:??96%?? HT:??179??cm?? WT:??111.13??kg?? BMI:??34.68?? BSA:??2.35?? GENERAL: answers questions appropriately, well groomed, obese/over weight. HEAD: normocephalic and atraumatic. EYES: non icteric LUNGS: CTA all ram. Good air movement throughout. CARDIO: RRR without murmur, gallop or thrill. NEURO: alert and oriented, normal gait. PYSCH: normal mood and affect. CUTANEOUS: no overt lesions or rashes.?? Clinic Assessment/Plan 1.??Obstructive sleep apnea syndrome??G47.33 ??TOSHIA diagnosed in 2018 with an AHI of 65.3/hr. He has been treated with BiPAP Imax 18 cm, Theodore 12 cm, PS 5 cm. He has excellent compliance and reduction in AHI. He feels he can't sleep without BiPAPand continued use is recommended.??His weight is up slightly and he feels he needs more pressure and he is maxing out his setting so I set BiPAP to Imax 22 cm, Theodore 14 cm, PS 5 cm.?He benefits from BiPAP and continued use is recommended. He is advised to keep up with the routine maintenance of the machine and to clean/replace parts as needed. I will see him back in one year. He is asked to call our office for any sleep related questions or concerns. I provided greater than 30 minutes in the care of this patient, more than half the time was spent in [id number] counseling. Actions: COMPLETED - 66217 Office/Outpatient Visit - Established Patient, Level 4 (30-39 min)., 02/22/24 9:04:00 EDT, Obstructive sleep apnea syndrome FUTURE - Follow-Up Appointment Request ROSANAY, *Est. 02/21/25 +/- 28 days, Future Order, In [facility] COMPLETED - Referral Management, Medical Service: Other, Reason: Dispense all BiPAP supplies as needed. FYI I set BiPAP to Imax 22 cm, Theodore 14 cm, PS 5 cm [employer], Start: 02/22/24 ?? Problem List/Past Medical History Ongoing Chronic insomnia Dream enactment behavior Hypertriglyceridemia Impingement syndrome of right shoulder region Kidney stone Large prostate Liver function tests abnormal Malignant tumor of prostate Neuropathy due to type 2 diabetes mellitus Obesity Obstructive sleep apnea syndrome Osteomyelitis Poliosis Raised prostate specific antigen Right knee pain Skin ulcer Testicular hypofunction Type 2 diabetes mellitus without complication Historical Esophagitis Insomnia Nicotine dependence Parasomnia Urethral stricture Procedure/Surgical History ???Anastomotic urethroplasty (04/04/2021)???Cystourethroscopy with dilation of urethral stricture (10/13/2019)???Colonoscopy (05/13/2018)???EGD - Esophagogastroduodenoscopy (05/13/2018)???Upper GI (gastrointestinal) endoscopy (05/05/2018)???Repair of nasal septum (10/05/2006)???Procedure on knee ()???Mohs addl stage (10/05/1985)???Internal urethrotomy (1983)???Hemorrhoidectomy???Vasectomy Medications What How Much When Why Instructions Unchanged Accucheck Test Strips 1 Each Not Applicable As Directed as needed for As Needed Contact prescribing physician if questions or concerns ?? Unchanged dulaglutide (Trulicity Pen 1.5 mg/ 0.5 mL subcutaneous solution) Contact prescribing physician if questions or concerns ?? Unchanged Durable Medical Equipment for Prescription (Pen Needle) See instructions Contact prescribing physician if questions or concerns ?? Unchanged finasteride (finasteride 5 mg oral tablet) 1 tab Oral (given by mouth) Every day BPH with urinary obstruction Duration: 90 Days Contact prescribing physician if questions or concerns ?? Unchanged finasteride (finasteride 5 mg oral tablet) 1 tab Oral (given by mouth) Every day BPH with obstruction/lower urinary tract symptoms Duration: 90 Days Contact prescribing physician if questions or concerns ?? Unchanged insulin glargine (Lantus Solostar Pen 100 units/ mL subcutaneous solution) Contact prescribing physician if questions or concerns ?? Unchanged insulin lispro (HumaLOG KwikPen) Contact prescribing physician if questions or concerns ?? Unchanged metFORMIN (metFORMIN 500 mg oral tablet) Contact prescribing physician if questions or concerns ?? Unchanged omeprazole Contact prescribing physician if questions or concerns ?? Unchanged pregabalin (Lyrica 300 mg oral capsule) 1 Capsules Oral (given by mouth) 2 times a day Contact prescribing physician if questions or concerns ?? Unchanged rosuvastatin (rosuvastatin 5 mg oral tablet) Contact prescribing physician if questions or concerns ?? Unchanged sucralfate (sucralfate 1 g oral tablet) Contact prescribing physician if questions or concerns ?? Unchanged tamsulosin (tamsulosin 0.4 mg oral capsule) Contact prescribing physician if questions or concerns ?? Unchanged tamsulosin (tamsulosin 0.4 mg oral capsule) 2 Capsules Oral (given by mouth) Every day BPH with obstruction/lower urinary tract symptoms Duration: 90 Days Contact prescribing physician if questions or concerns ?? Unchanged venlafaxine (Effexor XR 150 mg oral capsule, extended release) 1 Capsules Oral (given by mouth) Every day Contact prescribing physician if questions or concerns ?? Allergies No Known Medication Allergies Social History Electronic Cigarette/Vaping Electronic Cigarette Use: Never. Tobacco Never tobacco user Tobacco Use:. Family History Arthritis: Mother. Family Member(s): ?? MOTHER, at age: 82 Years. Cause of : Immunizations Vaccine Date Status SARS-CoV-2 (COVID-19) mRNA-1273 vaccine 01/14/2021 Recorded SARS-CoV-2 (COVID-19) mRNA-1273 vaccine 12/18/2020 Recorded varicella virus vaccine 10/08/2020 Recorded zoster vaccine, inactivated 07/23/2020 Recorded influenza virus vaccine, live 07/23/2020 Recorded pneumococcal 13-valent conjugate vaccine 08/19/2019 Recorded influenza virus vaccine, live 07/01/2019 Recorded influenza virus vaccine, live 07/05/2018 Recorded Electronically Signed on 02/22/24 09:39 AM Tamy Marshall NP Patient Care team information Care Team Personnel Name: [facility] Position: No Access Member Role: Primary Care Physician Address: Address: [id number] [place] [address] Care Team Related Persons Name: KASSANDRA MOSLEY Address: [place]
--- OUTSIDE RECORDS SUMMARY | 2024-07-01 10:25 | XMS_ITS | Encounter Summary ---
Author Organization [facility] [place] [address] Care Team Providers Care Balance Bridge Inspector Name Role Phone Pillo Rabago Primary Care Provider [phone] Encounter Details Date Type Department Care Team (Late st Contact Info) Description 05/02/2021 Telephone [place] [id number] Delilah Turner Social History Tobacco Use Types Packs/Day Years [...] encounter Miscellaneous Notes * Telephone Encounter - Delilah Pierre - 05/02/2021 12:32 PM EDT Tried contacting patient multiple times to schedule a follow up appointment with Dr. Ken in General Surgery. All attempts of contact were unsuccessful and no further attempts will be made. Will notify provider. documented in this encounter Plan of Treatment Not on file documented as of this encounter Visit Diagnoses Not on filedocumented in this encounter Care Teams Balance Bridge Inspector Relationship Specialty Start Date End Date Pillo Rabago PA PCP - General General Internal Medicine 08/05/19 documented as of this encounter
--- OUTSIDE RECORDS SUMMARY | 2024-07-01 10:25 | XMS_ITS | Encounter Summary ---
Author Organization [facility] [place] [address] Care Team Providers Care Emergency Registrar Name Role Phone Pillo Rabago Primary Care Provider Encounter Details Date Type Department Care Team (Latest Contact Info) Description 06/29/2023 Travel Social History Tobacco Use Types Packs/Day [...] on filedocumented in this encounter Care Teams Emergency Registrar Relationship Specialty Start Date End Date Pillo Rabago PA PCP - General General Internal Medicine 08/05/19 documented as of this encounter
--- OUTSIDE RECORDS SUMMARY | 2024-07-01 10:25 | XMS_ITS | Encounter Summary ---
Author Organization [facility] [place] [address] Care Team Providers Care Sales Estimator Name Role Phone Pillo Rabago Primary Care Provider [phone] Reason for Visit * Reason Comments Urethral Stricture Encounter Details Date Type Department Care Team (Late st Contact Info) Description 11/20/2021 1:00 PM EST [place] [address] Calvin Garsia III, MD [facility] [place] [address] Stricture of anterior urethra in male, unspecified [...] Sign Reading Time Taken Comments Blood Pressure 163/80 11/20/2021 1:18 PM EST Pulse 91 11/20/2021 1:18 PM EST Temperature - - Respiratory Rate - - Oxygen Saturation - - Inhaled Oxygen Concentration - - Weight - - Height - - Body Mass Index - - documented in this encounter Progress Notes * Calvin Garsia III, MD - 11/20/2021 1:00 PM EST See procedure note Finding: wide calibre bulbar urethral stricture documented in this encounter Procedure Notes * Calvin Garsia III, MD - 11/20/2021 1:00 PM ESTAssociated Order(s): CYSTOSCOPY Pre-Procedure Diagnose(s): Stricture of anterior urethra in male, unspecified stricture type [place] is a 66-year-old gentleman who presents for follow-up evaluation 6 months of following. Urethroplasty (EPA). Continues to enjoy a good urinary flow. Procedure: Patient was taken to the [facility] cystoscopy suite where he was appropriately identified. Consent form was signed. In the supine position he was prepped and draped in usual sterile fashion. A flexible cystoscope was inserted into the urethra meatus and passed without difficulty through the up a long urethra. The midportion of the bulbar urethra there was a wide caliber a thin-walled band which was easily accepted the 17 [place] cystoscope. He was then passed uneventfully through the posterior urethra and into the bladder. At the end of the procedure the scope was removed without incident and he tolerated the procedure well. Assessment: History of anterior (bulbar) urethral stricture treated with one stage urethroplasty. Cystoscopy demonstrated a wide caliber superficial stricture. Plan: Return to clinic 6 months with a uroflow documented in this encounter Plan of Treatment Not on file documented as of this encounter Procedures Procedure Name Priority Date/Time Associated Diagnosis Comments CYSTOSCOPY Routine 11/20/2021 1:00 PM EST Stricture of anterior urethra in male, unspecified stricture type documented in this encounter Results * Cystoscopy (11/20/2021 1:00 PM EST) Narrative Calvin Garsia III, MD - 11/20/2021 1:00 PM EST Calvin Garsia III, MD ? 11/29/2021 ??9:33 AM Paris is a 66-year-old gentleman who presents for follow-up evaluation 6 months of following. ??Urethroplasty (EPA). ?? Continues to enjoy a good urinary flow. Procedure: Patient was taken to the [facility] cystoscopy suite where he was appropriately identified. ??Consent form was signed. ??In the supine position he was prepped and draped in usual sterile fashion. A flexible cystoscope was inserted into the urethra meatus and passed without difficulty through the up a long urethra. ??The midportion of the bulbar urethra there was a wide caliber a thin-walled band which was easily accepted the 17 [place] cystoscope. ??He was then passed uneventfully through the posterior urethra and into the bladder. At the end of the procedure the scope was removed without incident and he tolerated the procedure well. Assessment: History of anterior (bulbar) urethral stricture treated with one stage urethroplasty. ??Cystoscopy demonstrated a wide caliber superficial stricture. Plan: Return to clinic 6 months with a uroflow Calvin Garsia III, MD PROCEDURE DANIEL PERSAUD documented in this encounter Visit Diagnoses Diagnosis Stricture of anterior urethra in male, unspecified stricture type documented in this encounter Care Teams Sales Estimator Relationship Specialty Start Date End Date Pillo Rabago PA PCP - General General Internal Medicine 08/05/19 documented as of this encounter
--- OUTSIDE RECORDS SUMMARY | 2024-07-01 10:25 | XMS_ITS | Encounter Summary ---
Author Organization [facility] [place] [address] Care Team Providers Care Tie Sawyer Name Role Phone Pillo Rabago Primary Care Provider Encounter Details Date Type Department Care Team (Late st Contact Info) Description 04/12/2021 Telephone Urology at [facility] [place] [address] Graciela Aguilera ANIMAL BEHAVIORIST [facility] [place] [address] Social History Tobacco Use Types Packs/Day Years Used Date Smoking Tobacco: Former Cigarettes Smokeless Tobacco: Never Comments:August of 2014 qu it Sex and Gender Information Value Date Recorded Sex Assigned at Male 04/15/2021 8:56 AM EDT Gender Identity Male 04/15/2021 8:56 AM EDT Sexual Orientation Straight 04/15/2021 8: 56 AM EDT documented as of this encounter Miscellaneous Notes * Addendum Note - Graciela Aguilera RN - 04/12/2021 4:02 PM EDTAddended by: GRACIELA AGUILERA on: 04/12/2021 04:02 PM Modules accepted: Orders * Telephone Encounter - Graciela Aguilera RN - 04/12/2021 3:58 PM EDT Return call received from patient. Script sent to preferred pharmacy. He will start this on Tuesday 04/17. * Telephone Encounter - Graciela Aguilera RN - 04/12/2021 1:23 PM EDT Call placed to patient to review urine culture results. No answer. Will review the following when patient calls back. 10-100,000 mixed gram positive ángel. Per Dr. Upton, [place] 500BID x 5 days. documented in this encounter Plan of Treatment Not on file documented as of this encounter Visit Diagnoses Not on filedocumented in this encounter Care Teams Tie Sawyer Relationship Specialty Start Date End Date Pillo Rabago PA PCP - General General Internal Medicine 08/05/19 documented as of this encounter
--- OUTSIDE RECORDS SUMMARY | 2024-07-01 10:25 | XMS_ITS | Encounter Summary ---
Author Organization [facility] [place] [address] Care Team Providers Care Monument Mason Name Role Phone Pillo Rabago Primary Care Provider Encounter Details Date Type Department Care Team (Late st Contact Info) Description 11/08/2020 Telephone [place] [id number] Delilah Turner Social History Tobacco Use Types [...] * Telephone Encounter - Delilah Pierre - 11/08/2020 3:29 PM EST I called [place] to schedule a follow up visit with Dr. Ken in General Surgery. He declined follow up at this time and asked that we reach out to him in 6 months. documented in this encounter Plan of Treatment Not on file documented as of this encounter Visit Diagnoses Not on filedocumented in this encounter Care Teams Monument Mason Relationship Specialty Start Date End Date Pillo Rabago PA PCP - General General Internal Medicine 08/05/19 documented as of this encounter
--- OUTSIDE RECORDS SUMMARY | 2024-07-01 10:25 | XMS_ITS | Encounter Summary ---
Author Organization [facility] [place] [address] Care Team Providers Care Customs Brokerage Manager Name Role Phone Pillo Rabago Primary Care Provider Encounter Details Date Type Department Care Team (Latest Contact Info) Description 05/22/2021 10:20 AM EDT Clinical [place] [address] Stricture of anterior urethra in male, unspecified [...] as of this encounter Progress Notes * Nicole Gamboa LPN - 05/22/2021 10:20 AM EDT See cystogram note from today 05/22/2021. documented in this encounter Plan of Treatment Not on file documented as of this encounter Visit Diagnoses Diagnosis Stricture of anterior urethra in male, unspecified stricture type documented in this encounter Care Teams Customs Brokerage Manager Relationship Specialty Start Date End Date Pillo Rabago PA PCP - General General Internal Medicine 08/05/19 documented as of this encounter
--- OUTSIDE RECORDS SUMMARY | 2024-07-01 10:25 | XMS_ITS | Encounter Summary ---
Author Organization [facility] [place] [address] Care Team Providers Care Sign Poster Name Role Phone Pillo Rabago Primary Care Provider Reason for Visit * Reason Comments Urethral Stricture Encounter Details Date Type Department Care Team (Late st Contact Info) Description 07/25/2021 1:00 PM EDT [place] [address] Calvin Garsia III, MD [facility] [place] [address] Anterior urethral stricture Social History Tobacco Use [...] Sign Reading Time Taken Comments Blood Pressure 129/76 07/25/2021 1:06 PM EDT Pulse 85 07/25/2021 1:06 PM EDT Temperature - - Respiratory Rate - - Oxygen Saturation - - Inhaled Oxygen Concentration - - Weight - - Height - - Body Mass Index - - documented in this encounter Progress Notes * Calvin Garsia III, MD - 07/25/2021 1:00 PM EDT [place] is a 66-year-old gentleman returns for evaluation approximately 3 months of following 1 stage anterior urethroplasty (EPA). He remains delighted with the result. He is voiding with a strong forceful pain- free stream. He feels he empties his bladder. He does not complain of some occasional urinary urgency. He voids 4-5 times a day. He has had no hematuria, dysuria or signs of urinary tract infection. Uroflow was done showing a peak flow of 13 mL/s. Unfortunately he only had 110 mL in his bladder. Assessment: 66-year-old gentleman status post 1 stage urethroplasty with a good interval result. I told him that I would like to see him back in 4 months or so for an office cystoscopy to assess the integrity of the repair. I have asked patient to contact me should he experience any urologic problems between now and his next visit. All questions have been answered to his satisfaction Plan: Return to clinic 4 months with office cystoscopy documented in this encounter Plan of Treatment Not on file documented as of this encounter Visit Diagnoses Diagnosis Anterior urethral stricture documented in this encounter Care Teams Sign Poster Relationship Specialty Start Date End Date Pillo Rabago PA PCP - General General Internal Medicine 08/05/19 documented as of this encounter
--- OUTSIDE RECORDS SUMMARY | 2024-07-01 10:25 | XMS_ITS | Encounter Summary ---
Author Organization [facility] [place] [address] Care Team Providers Care Soldering Machine Operator Helper Name Role Phone Pillo Rabago Primary Care Provider [phone] Reason for Visit * Auth/Cert Specialty Diagnoses / Procedures Referred By Contac t Referred To Contact Diagnoses Bulbous urethral stricture Bulbous urethral stricture Procedures PRO RECONSTRUC ANT MALE URETHRA PRO EXCISE ORAL MUCOSA FOR GRAFT PRO INJECT FOR RETROGRADE URETHOCYSTO URETHROPLASTY,ONE-STAGE RECONSTRUCTION OF MALE ANTERIOR URETHRA (WRVU 17.68) EXCISION OF MUCOSA OF VESTIBULE OF MOUTH DONOR GRAFT (WRVU 2.83) INJECTION PROCEDURE FOR RETROGRADE URETHROCYSTOGRAPHY (WRVU 1.05) Referral ID Status Reason Start Date Expiration Date Visits Re quested Visits Authorized [id number] 1 1 Encounter Details Date Type Department Care Team (Late st Contact Info) Description 04/22/2021 10:07 AM EDT Anesthesia Event [place] [address] Juan Miguel Mason MD [facility] [place] [address] Bentley Hutchins MD [facility] [place] [address] Anesthesia Record Procedure Summary Procedure Name Responsible Anesthesiologist Anesthesia Start Time Anesthesia Stop Time URETHROPLASTY,ONE-STAGE RECONSTRUCTION OF MALE ANTERIOR URETHRA (WRVU 17.68) (Urethra) Juan Miguel Mason MD 04/22/21 1007 04/22/21 1433 Events Date Time Event Comment 04/22/2021 0939 1006 AN Verify 1007 Start 1007 An Start Data 1015 An Induction 1019 An Intubation 1021 Anesthesia Ready 1105 Procedure Start 1211 Break/Relief In I assumed ca re for Break Relief before which we: 1. Identified the patient 2. Identified the responsible provider(s) 3. Reviewed the pertinent medical history 4. Discussed the surgical plan and course 5. Reviewed intra-op anesthesia management and issues during anesthesia 6. Set expectations for the relief (and/or post-procedure) period 7. Allowed opportunity for questions and acknowledgement of understanding Jocelyn Aguiar CRNA 1419 Extubation/LMA Out 1428 Recovery or ICU Handoff Sera ent care was transferred to the destination unit staff after review of the patient's medical history, current anesthetic/surgical status and plan, according to the Provider Handoff Checklist. 1432 an stop data 1433 Stop Meds Name Total fentaNYL 175 mcg IV Lidocaine 80 mg Propofol 200 mg Rocuronium 50 mg PHENYLephrine 400 mcg ePHEDrine 40 mg cefTRIAXone (Rocephin) 2 g v ial attach to sodium chloride 0.9% 50 mL Mini-Bag Plus 0 g cefTRIAXone 2 g Ketamine 10 mg/mL 80 mg PHENYLephrine INF 3,110 mcg lactated ringers infusion 1,000 mL * Agents Name O2 Air N2O Sevoflurane (et) * Blood No blood administrations on file. Lines, Drains, and Airways Type Details Placement Removal Urethral Catheter 04/22/21; 1338; Urol ogic surgery, Physician order, Surgery longer than 2 hours; indwelling double lumen catheter; silastic; 16; inserted at this facility (inserted by Dr Hess); 1; 5; 10; other (see comments) (general anesthetic); drainage bag to dependent drainage 04/22/21 1338 by Dilia Burrows, RN Drain/Device Site 04/22/21; 1345; Righ t; scrotum; collapsible closed device; Dr Hess; Sterile prep and drape 04/22/21 1345 by Dilia Burrows, RN (RETIRED) Peripheral IV Line - Single Lumen 04/22/21; 0949; median cubital vein (antecubital fossa), right; [id number] catheter system; 18 gauge; distraction, intradermal injection; 04/23/21; 1206 04/22/21 0949 by Deep Delcid RN 04/23/21 1206 by Andrew Donnelly LNA ETT Mask Ventilation: Adjunct (2); ETT Type: Cuffed, Oral; ETT Size: 8 mm; Mac Blade: 4; Notes: Asleep, Awake, Pre-O2, Stylette, Cricoid Pressure; Attempts: 1; Laryngoscopy Grade: 3; ETT Placement Verified By: Auscultation, Capnometry, Visual; Secured at Teeth: 23 cm; Inserted by: Bentley Hutchins MD; Removal Date: 04/22/21; Removal Time: 1419 04/22/21 1019 by Juan Miguel Mason MD 04/22/21 1419 by Bentley Hutchins MD Incision 04/22/21; 1052; uret hral meatus; other (see comments) (cystoscopy); 06/02/22 (LDA cleanup utility RA#[id number]); 1715 (LDA cleanup utility RA#[id number]) 04/22/21 1052 by Dilia Burrows RN 06/02/22 1715 by Colleen Michael Incision 04/22/21; 1105; perineum; 06/02/22 (LDA cleanup utility RA#[id number]); 1715 (LDA cleanup utility RA#[id number]) 04/22/21 1105 by Dilia Burrows RN 06/02/22 1715 by Colleen Michael documented in this encounter Social History Tobacco Use Types Packs/Day Years [...] AM EDT documented as of this encounter OR Notes * Anesthesia Postprocedure Evaluation - Bentley Hutchins MD - 04/22/2021 2:34 PM EDT Department of Anesthesiology Post-procedure Note Patient: Topher Mosley Procedure Summary Date: 04/22/21 Room / Location: [facility] OR [address] [place] [address] MAIN OR Anesthesia Start: 1007 Anesthesia Stop: 1433 Procedures: URETHROPLASTY,ONE-STAGE RECONSTRUCTION OF MALE ANTERIOR URETHRA (WRVU 17.68) (N/A Urethra) MODIFIER-CYSTOSCOPY Diagnosis: (Stricture of anterior urethra in male, unspecified stricture type) Surgeons: Calvin Garsia III, MD Responsible Provider: Juan Miguel Mason MD Anesthesia Type: general ASA Status: 3 All Anesthesia Providers: Anesthesiologist: Juan Miguel Mason MD Php Consultant: Bentley Hutchins MD Vitals Value Taken Time BP 136/70 04/22/21 1430 Temp Pulse 69 04/22/21 1434 Resp 14 04/22/21 1434 SpO2 99 % 04/22/21 1434 Pain Level Vitals shown include unvalidated device data. Patient Location: PACU/[facility] Level of Consciousness: Awake and Alert Pain Management: Satisfactory Analgesia PONV: None Cardiovascular Status: At Baseline and Hemodynamically Stable Respiratory Status: Nasal airway, Stable Respiratory Status and Supplemental O2 (NC or FM) Postoperative Fluid Status: Intravascular EUvolemia Possible Anesthetic Complications: NONE apparent at time of evaluation Final Primary Anesthesia Type: General (The anesthetic type performed was the same as planned.) Comments: Bentley Hutchins MD * Anesthesia Preprocedure Evaluation - Juan Miguel Mason MD - 04/21/2021 6:33 PM EDT Pre-Anesthesia Evaluation for: Topher ramirez 65 y.o. male. Procedure(s): URETHROPLASTY,ONE-STAGE RECONSTRUCTION OF MALE ANTERIOR URETHRA (WRVU 17.68) EXCISION OF MUCOSA OF VESTIBULE OF MOUTH DONOR GRAFT (WRVU 2.83) INJECTION PROCEDURE FOR RETROGRADE URETHROCYSTOGRAPHY (WRVU 1.05) Patient Active Problem List Diagnosis ??? Stricture of anterior urethra in male ??? Fibrosarcoma Past Medical History: Diagnosis Date ??? BPH (benign prostatic hyperplasia) ??? Diabetes mellitus ??? Fibrosarcoma 1985 ??? Obstructive sleep apnea ??? Osteomyelitis of cervical spine 2010 Past Surgical History: Procedure Laterality Date ??? SOFT TISSUE TUMOR RESECTION 1985 Resection of scalp fibrosarcoma, with rotational flap and skin graft closure Social History Tobacco Use ??? Smoking status: Former Smoker Types: Cigarettes ??? Smokeless tobacco: Never Used ??? Tobacco comment: August of 2014 quit Substance Use Topics ??? Alcohol use: Not on file Social History Substance and Sexual Activity Drug Use Not on file No Known Allergies Medications: MAR and/or home medications have been reviewed. Physical Exam: Preprocedure Vitals Current as of 04/21/21 1833 No BP, pulse, respiration, SpO2, or temperature recorded. Height: Weight: BMI: IBW: Airway Assessment: Mallampati: IV TM distance: >3 FB Neck ROM: limited Cardiovascular Assessment: Rhythm: regular Pulmonary Assessment: (+) decreased breath sounds Dental Assessment: Misc Assessment: Patient is wearing No contact(s). IV access: Peripheral line Last Filed Perioperative Cognitive Screening None Anesthesia Plan: ASA 3 general, with a(n) intravenous induction PRELIMINARY NOTE 65 y.o. male with TOSHIA, Type 2 diabetes, BPH, prostate cancer, history of osteomyelitis of cervical spine (2010) scheduled for urethroplasty. Medical History: as above Surgical History: Cystoscopy in 2019, scalp fibrosarcoma removal in 1985 Anesthetic History: No records on file Allergies reviewed Labs reviewed Exercise tolerance: Greater than 4 METS No cardiac records on file NPO Status: Appropriate Anesthetic Plan: GA w/ ETT/LMA Standard ASA monitoring Adequate PIV access Max W MD [place] 04/21/2021 Region - Other Informed Consent: Anesthetic plan and risks discussed with patient. Use of blood products discussed with patient who. Plan discussed with resident and attending. Anesthesia Screening documented in this encounter Plan of Treatment Not on file documented as of this encounter Visit Diagnoses Not on filedocumented in this encounter Administered Medications Inactive Administered Medications - up to 3 most recent administrations Medication Order MAR Action Action Date Dose Rate Site cefTRIAXone (Rocephin) injection Intravenous, PRN, Starting on Thu04/22/21 at 1021, Until Thu04/22/21 at 1433, Anesthesia Intra-op, Routine Given 04/22/2021 10:21 AM EDT 2 g ePHEDrine sulfate (5 mg/mL) multi-dose injection Intravenous, PRN, Starting on Thu04/22/21 at 1103, Until Thu04/22/21 at 1433, Anesthesia Intra-op, Routine Given 04/22/2021 1:13 PM EDT 5 mg Given 04/22/2021 1:00 PM EDT 5 mg Given 04/22/2021 12:51 PM EDT 5 mg fentaNYL (pf) (50 mcg/mL) multi-dose injection Intravenous, PRN, Starting on Thu04/22/21 at 1015, Until Thu04/22/21 at 1433, Anesthesia Intra-op, Routine Given 04/22/2021 12:38 PM EDT 25 mcg Given 04/22/2021 11:06 AM EDT 50 mcg Given 04/22/2021 10:15 AM EDT 100 mcg ketamine (Ketalar) (10 mg/mL) IV bolus injection (Anesthesia) Intravenous, PRN, Starting on Thu04/22/21 at 1117, Until Thu04/22/21 at 1433, Anesthesia Intra-op Given 04/22/2021 1:51 PM EDT 10 mg Given 04/22/2021 1:14 PM EDT 10 mg Given 04/22/2021 12:20 PM EDT 10 mg lactated ringers infusion 1,000 mL, at 100 mL/hr, Intravenous, CONTINUOUS, Starting on Thu04/22/21 at 0930, Until Thu04/22/21 at 1547, Day of Surgery (Day of Procedure) New Bag 04/22/2021 11:03 AM EDT lidocaine (pf) (Xylocaine) (20 mg/mL) 2% injection syringe Intravenous, PRN, Starting on Thu04/22/21 at 1015, Until Thu04/22/21 at 1433, Anesthesia Intra-op, Routine Given 04/22/2021 10:15 AM EDT 80 mg PHENYLephrine (Perico-Synephrine) (80 mcg/mL) in sodium chloride 0.9% 250 mL infusion Intravenous, CONTINUOUS PRN, Starting on Thu04/22/21 at 1302, Until Thu04/22/21 at 1433, Anesthesia Intra-op, Routine Rate/Dose Change 04/22/2021 2:00 PM EDT 30 mcg/min 22.5 mL/hr Rate/Dose Change 04/22/2021 1:27 PM EDT 60 mcg/min 45 mL/h r Rate/Dose Change 04/22/2021 1:21 PM EDT 50 mcg/min 37.5 mL /hr PHENYLephrine in NS (PF) (PERICO-SYNEPHRINE) 0.8 mg/10 mL (80 mcg/mL) multi-dose injection Syrg Intravenous, PRN, Starting on Thu04/22/21 at 1249, Until Thu04/22/21 at 1433, Anesthesia Intra-op, Routine Given 04/22/2021 1:34 PM EDT 80 mcg Given 04/22/2021 1:20 PM EDT 80 mcg Given 04/22/2021 1:16 PM EDT 80 mcg propofoL (Diprivan) 10 mg/mL bolus injection (Anesthesia) Intravenous, PRN, Starting on Thu04/22/21 at 1015, Until Thu04/22/21 at 1433, Anesthesia Intra-op Given 04/22/2021 10:15 AM EDT 200 mg rocuronium (Zemuron) (10 mg/mL) multi-dose injection Intravenous, PRN, Starting on Thu04/22/21 at 1016, Until Thu04/22/21 at 1433, Anesthesia Intra-op, Routine Given 04/22/2021 10:16 AM EDT 50 mg documented in this encounter Care Teams Soldering Machine Operator Helper Relationship Specialty Start Date End Date Pillo Rabago PA PCP - General General Internal Medicine 08/05/19 documented as of this encounter
--- OUTSIDE RECORDS SUMMARY | 2024-07-01 10:25 | XMS_ITS | Encounter Summary ---
Author Organization [facility] [address] Care Team Providers Care Retanned Leather Roller Name Role Phone Pillo Rabago Primary Care Provider [phone] Encounter Details Date Type Department Care Team (Late st Contact Info) Description 07/10/2021 Telephone Urology at [facility] [place] [address] Calvin Garsia III, MD [facility] [place] [address] Social History Tobacco Use Types Packs/Day Years [...] encounter Miscellaneous Notes * Telephone Encounter - Hawk Scales - 07/10/2021 11:56 AM EDT LMOM x1 to schedule follow up appointment with Dr. Garsia in July documented in this encounter Plan of Treatment Not on file documented as of this encounter Visit Diagnoses Not on filedocumented in this encounter Care Teams Retanned Leather Roller Relationship Specialty Start Date End Date Pillo Rabago PA PCP - General General Internal Medicine 08/05/19 documented as of this encounter
--- OUTSIDE RECORDS SUMMARY | 2024-07-01 10:25 | XMS_ITS | Encounter Summary ---
Author Organization [facility] [place] [address] Care Team Providers Care Gauge Maker Name Role Phone Pillo Rabago Primary Care Provider [phone] Encounter Details Date Type Department Care Team (Late st Contact Info) Description 08/11/2019 Orders Only [place] [address] Mariana Casarez, RN Social History Tobacco Use Types Packs/Day Years Used Date Smoking Tobacco: Former Cigarettes Smokeless Tobacco: Never Comments:August of 2014 qu it Sex and Gender Information Value Date Recorded Sex Assigned at Male 04/15/2021 8:56 AM EDT Gender Identity Male 04/15/2021 8:56 AM EDT Sexual Orientation Straight 04/15/2021 8: 56 AM EDT documented as of this encounter Progress Notes * Mariana Raygoza RN - 08/11/2019 8:35 AM EST Sent to local pharmacy, [place] metal pickling equipment [place] [facility] [place] documented in this encounter Plan of Treatment Not on file documented as of this encounter Visit Diagnoses Not on filedocumented in this encounter Care Teams Gauge Maker Relationship Specialty Start Date End Date Pillo Rabago PA PCP - General General Internal Medicine 08/05/19 documented as of this encounter
--- OUTSIDE RECORDS SUMMARY | 2024-07-01 10:25 | XMS_ITS | Encounter Summary ---
Author Organization [facility]ly [facility] [place] [address] Care Team Providers Care Apparatus Lineman Name Role Phone Pillo Rabago Primary Care Provider Reason for Referral * Consultation (Routine) - Closed Specialty Diagnoses / Procedures Referred By Contac t Referred To Contact General Surgery Diagnoses Open wound of scalp, unspecified open wound type, initial encounter Ed Del Rio MD [facility] [place] [address] Sudeep Ken MD [facility] [place] [address] Referral ID Status Reason Start Date Expiration Date V isits Requested Visits Authorized [id number] Closed Consult, Test & Treat 08/05/2019 08/04/2020 1 1 Encounter Details Date Type Department Care Team (Late st Contact Info) Description 08/05/2019 4:00 PM EDT Office [place] [address] Ed Del Rio MD [facility] [place] [address] Open wound of scalp, unspecified open wound type, initial encounter Social History Tobacco Use Types Packs/Day Years Used Date Smoking Tobacco: Former Cigarettes Smokeless Tobacco: Never Comments:August of 2014 qu it Sex and Gender Information Value Date Recorded Sex Assigned at Male 04/15/2021 8:56 AM EDT Gender Identity Male 04/15/2021 8:56 AM EDT Sexual Orientation Straight 04/15/2021 8: 56 AM EDT documented as of this encounter Patient Instructions * Patient Instructions* Ed Del Rio MD - 08/05/2019 4:00 PM EDT Wash over scalp with soapy water pat dry, let air dry. Apply a thin layer of silvadene and change twice daily. Follow up with general surgery. documented in this encounter Progress Notes * Ed Del Rio MD - 08/05/2019 4:00 PM EDT HPI: Topher Mosley is a 64 y.o. male here in consultation at the request of Dr. Rikki Villela. Patient is here to discuss his concerns regarding a large soft tissue defect to his scalp and a recent occurrence of a ulceration overlying his prior skin graft. This ulcer has been present for about 1+ weeks now. He does have a very complex medical history. 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 In addition, he has had significant surgical reconstruction which included skin grafts from thigh and flap recreation. He doesn't have any sensation to thearea. He was recently placed on Bactrim for concerns of being a MRSA infection. He also has a h/o osteomyelitis to his cervical spine that presented about 2 years ago. He is positive for type 2 diabetes mellitus, hypertriglyceridemia, peripheral neuropathy,prostate cancer,TOSHIA, and esophagitis. 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 He has a history of scalps expanders. CT scan was performed at an outside facility. He was seen by the ID team today. ? No past medical history on file. ?? No past surgical history on file. ?? Social History ?? Socioeconomic History ??? Marital status: Not on file ? Spouse name: Not on file ??? Number of children: Not on file ??? Years of education: Not on file ??? Highest education level: Not on file Occupational History ??? Not on file Social Needs ??? Financial resource strain: Not on file ??? Food insecurity: ? Worry: Not on file ? Inability: Not on file ??? Transportation needs: ? Medical: Not on file ? Non-medical: Not on file Tobacco Use ??? Smoking status: Not on file Substance and Sexual Activity ??? Alcohol use: Not on file ??? Drug use: Not on file ??? Sexual activity: Not on file Lifestyle ??? Physical activity: ? Days per week: Not on file ? Minutes per session: Not on file ??? Stress: Not on file Relationships ??? Social connections: ? Talks on phone: Not on file ? Gets together: Not on file ? Attends scientology service: Not on file ? Active member of club or organization: Not on file ? Attends meetings of clubs or organizations: Not on file ? Relationship status: Not on file ??? Intimate partner violence: ? Fear of current or ex partner: Not on file ? Emotionally abused: Not on file ? Physically abused: Not on file ? Forced sexual activity: Not on file Other Topics Concern ??? Not on file Social History Narrative ??? Not on file ? Allergies not on file No current outpatient medications on file prior to visit. ?? No current facility-administered medications on file prior to visit. ? ROS: HEENT, GI, /Renal, Psych, Card, Pulm, Endo, Heme, Immun, Neuro: negative ? Examination: There were no vitals taken for this visit. Constitutional: No acute distress Scalp: Skin graft on left posterior scalp and open are on graft that measures 2cm x 3cm Diagnostic Testing: CT scan: 07/30/19 No acute intra cranial findings. Soft tissue prominence in the right posterior lateral occipital region with heterogenous attenuation and internal areas of low attenuation may represent tumor, infection, or inflammation. Nearby osseous structures are intact. Lobulated mucosal thickening in the nasal cavity may represent allergies sinus disease or polyps. He has been taking Bactrim ?? Impression: Topher A Naraghi 64 y.o. male patient with h/o fibrosarcoma with new lesion in skin graft at the reconstructive site. Discussed with patient that I would like to reach out to our GeneralSurgery team to discuss his case. After reaching out to Dr. Ken he is more than happy to meet with patient. As for now he has suggested that we have the patient apply silvadene to the scalp wound twice daily, to obtain a culture today while patient is in clinic. Also reviewed with patient that I would connect with ID to see if he should be switched to a different antibiotic or stay on the course of Bactrim. I would be available to proceed with surgical closure to the area. ? Plan: 1.Referral to General Surgery to see Dr. Ken 2.Wash over scalp with soapy water, pat dry, let air dry. 3. Apply a thin layer of silvadene to scalp twice daily. 4. Talk with ID to see if he should continue taking Bactrim or if he should change to a different antibiotic. 5. Cultures obtained and sent out at today's visit. ?IJuanita have performed the documentation for this encounter in the presence of and actingas a scribe for ED DEL RIO MD. I performed the services which were documented by the scribe, and I agree with the accuracy of the documentation in this encounter. ED DEL RIO MD documented in this encounter Plan of Treatment Scheduled Referrals Name Type Priority Associated Diagnoses Orde r Schedule Referral to General Surgery Outpatient Referral Routine Open wound of scalp, unspecified open wound type, initial encounter Ordered: 08/05/2019 documented as of this encounter Procedures Procedure Name Priority Date/Time Associated Diagnosis Comments HC SKIN CX, SUPERFICIAL Routine 08/05/2019 3:31 PM EDT Open wound of scalp, unspecified open wound type, initial encounter documented in this encounter Results * Skin/Superficial Wound Culture Scalp (08/05/2019 3:31 PM EDT) Skin/Superfic ial Wound Culture Few normal cutaneous ángel [facility] Gram Stain No Neutrophils seen. No microorganisms seen. [facility] Swab from superficial wound (specimen) SCALP STRUCTURE / Unknown 08/05/2019 3:31 PM EDT 08/05/2019 4:19 PM EDT Narrative Resulting Agency Comment Spec In Lab Ed Del Rio MD MICROBIOLOGY - GENER AL ORDERABLES [facility] [place] [address] documented in this encounter Visit Diagnoses Diagnosis Open wound of scalp, unspecified open wound type, initial encounter documented in this encounter Care Teams Apparatus Lineman Relationship Specialty Start Date End Date Pillo Rabago PA PCP - General General Internal Medicine 08/05/19 documented as of this encounter
--- OUTSIDE RECORDS SUMMARY | 2024-07-01 10:25 | XMS_ITS | Clinical Summary ---
Author Organization [facility] Address [facility] [place] [address] Care Team Providers Care Manager Wound Name Role Phone Pillo Rabago Primary Care Provider [phone] Allergies No known active allergies Medications Medication Sig Dispensed Refills Start Date End Date Status insulin glargine (LANTUS SOLOSTAR U-100 INSULIN) 100 unit/mL (3 mL) pen Inject subcutaneously nightly. 35 units twice daily Active metFORMIN (GLUCOPHAGE) 500 mg Tablet Take 500 mg by mouth 2 times daily (with meals). Active venlafaxine (EFFEXOR-XR) 150 mg Capsule, Sust. Release 24 hr Take 150 mg by mouth daily. Active pregabalin (LYRICA) 300 mg Capsule Take 300 mg by mouth 2 times daily. Active sucralfate (CARAFATE) 1 gram Tablet 06/08/2019 Active testosterone (ANDROGEL) 20.25 mg/1.25 gram (1.62 %) Gel in Metered-dose Pump 07/02/2019 Active omeprazole (PRILOSEC) 40 mg Capsule, Delayed Release(E.C.) 07/13/2019 Active rosuvastatin (CRESTOR) 5 mg Tablet 07/13/2019 Active tamsulosin (FLOMAX) 0.4 mg Capsule 07/13/2019 Active BD ULTRA-FINE SHORT PEN NEEDLE 31 gauge x 5/16 Needle 0 03/28/2019 Active Victoza 3-Andrew 0.6 mg/0.1 mL (18 mg/3 mL) Pen Injector 06/11/2020 Active acetaminophen (Tylenol) 325 mg Tablet Take 2 tablets by mouth every 6 hours as needed for Pain. 30 tablet 1 04/23/2021 Active ibuprofen (Advil) 600 mg Tablet Take 1 tablet by mouth every 6 hours as needed for Pain. 30 tablet 12 04/23/2021 Active polyethylene glycoL (Miralax) 17 gram Powder in Packet Take 17 g by mouth daily as needed. 14 each 04/23/2021 Active senna-docusate (Pericolace) 8.6-50 mg Tablet Take 1 tablet by mouth daily as needed for Constipation. 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 08/15/2020 Fibrosarcoma 08/22/2019 Immunizations Name Administration Dates Next Due Influenza Quadrivalent, Preservative Free 2018 Social History Tobacco Use Types Packs/Day Years [...] Orientation Straight 04/15/2021 8: 56 AM EDT Last Filed Vital Signs Vital Sign Reading Time Taken Comments Blood Pressure 163/80 11/20/2021 1:18 PM EST Pulse 91 11/20/2021 1:18 PM EST Temperature 36.6 ??C (97.8 ??F) 05/22/2021 9:43 AM ED T Respiratory Rate 16 04/23/2021 7:48 AM EDT Oxygen Saturation 92% 04/23/2021 7:48 AM EDT Inhaled Oxygen Concentration - - Weight 113.4 kg (250 lb) 04/22/2021 8:38 AM EDT Height 177.8 cm (5' 10) 04/22/2021 8:38 AM EDT Body Mass Index 35.87 04/22/2021 8:38 AM EDT Plan of Treatment Health Maintenance Due Date Last Done Comments CT Colonography 1954 Colonoscopy 1954 Colorectal Cancer Screening 1954 FIT DNA 1954 FIT 1954 Sigmoidoscopy (10 year) with FIT yearly 1954 Sigmoidoscopy 1954 Hepatitis C Screening 1972 Tetanus/Diphtheria/Pertussis Vaccines (1 - Tdap) 05/21 Zoster vaccine (1 of 2) 2004 Advance Directive 2009 AAA Screen 2019 Pneumoccocal Vaccine: 65+ (1 of 1 - PCV) 2019 Covid-19 Vaccine (1 - 2022-24 season) 2024 Influenza (Flu) vaccine (1 o f 1 - Influenza standard series) 06/05/2024 07/01/2019 Diabetes Screening (HgbA1C or Glucose) Discontinued Procedures Procedure Name Priority Date/Time Associated Diagnosis Comments BASIC METABOLIC PANEL Routine 04/23/2021 1:33 AM EDT from Last 3 Months or Most Recently Relevant to Health Maintenance Results * (ABNORMAL) Basic Metabolic Panel (non-fasting) (04/23/2021 1:33 AM EDT) Glucose 184 65 - 199 mg/dL [facility] Comment:Diabetes: >=200 mg/d L plus symptoms Blood Urea Nitrogen 9(L) 10 - 20 mg/dL [facility] Creatinine 0.74(L) 0.80 - 1.50 mg/dL [facility] Sodium 141 135 - 145 mmol/L [facility] Potassium 3.8 3.5 - 5.0 mmol/L [facility] Comment: Please note: ??Patients with WBC >100,000 may have falsely elevated Potassium levels. ??For accurate Potassium quantification in these patients send serum separator tube (gold top) for subsequent determinations. ??Contact the Clinical Chemistry Laboratory if there are any questions. Chloride 107 98 - 107 mmol/L [facility] Carbon Dioxide 27 22 - 31 mmol/L [facility] Anion Gap 7 5 - 15 mmol/L [facility] Calcium 8.5 8.5 - 10.5 mg/dL [facility] Est Glomerular Filtration Rate 96 >=60 mL/min/1. 73 m?? [facility] Comment: This patient? s estimated glomerular filtration rate (eGFR) is between 96 mL/min/1.73 m2 (patients with less muscle mass per kg body weight) and 111 mL/min/1.73 m2 (patients with more muscle mass per kg body weight) as determined by the CKD-EPI equation. Assessment of eGFR is not appropriate when creatinine concentrations are rapidly changing. For clinical decisions where creatinine clearance will affect therapy, a 24-hour urine creatinine clearance may be advised. Assignment of CKD stage 1 - 5 for patients with an eGFR near the transition point between stages may be based on clinical assessment of muscle mass and symptoms in addition to eGFR. Blood 04/23/2021 1:33 AM EDT 04/23/2021 1:36 AM EDT Narrative Resulting Agency Comment Spec In Lab Calvin Garsia III, MD CHEMISTRY ORDERAB LES [facility] [place] [address] from Last 3 Months or Most Recently Relevant to Health Maintenance Advance Directives * Attempt Cardiopulmonary Resuscitation - Inpatient (Latest Code Status on File) Date Activated Date Inactivated Comments 04/22/2021 4:08 PM 04/23/2021 2:46 PM Question Answer Comments Code Status decision made by: Patient * Attempt Cardiopulmonary Resuscitation - Inpatient Date Activated Date Inactivated Comments 04/22/2021 9:11 AM 04/22/2021 3:47 PM Question Answer Comments Code Status decision made by: Patient Care Teams Manager Wound Relationship Specialty Start Date End Date Pillo Rabago PA PCP - General General Internal Medicine 08/05/19
--- OUTSIDE RECORDS SUMMARY | 2024-07-01 10:25 | XMS_ITS | Encounter Summary ---
Author Organization Formerly [facility], [facility] Address [facility] [place] [address] Care Team Providers Care Internal Grinder Tender Name Role Phone Pillo Rabago Primary Care Provider [phone] Reason for Visit * Auth/Cert Specialty Diagnoses [...] Expiration Date Visits Re quested Visits Authorized [id number] 1 1 Encounter Details Date Type Department Care Team (Late st Contact Info) Description 04/22/2021 10:05 AM EDT - 04/22/2021 2:26 PM EDT Surgery [place] [address] Calvin Garsia III, MD [facility] [place] [address] URETHROPLASTY,ONE-STAGE RECONSTRUCTION OF MALE ANTERIOR URETHRA (WRVU 17.68) Social History Tobacco Use Types Packs/Day Years [...] Sign Reading Time Taken Comments Blood Pressure 130/74 04/22/2021 2:24 PM EDT Pulse 69 04/22/2021 2:24 PM EDT Temperature 37 ??C (98.6 ??F) 04/22/2021 2:24 PM EDT Respiratory Rate 17 04/22/2021 2:24 PM EDT Oxygen Saturation 99% 04/22/2021 2:24 PM EDT Inhaled Oxygen Concentration - - Weight 113.4 kg (250 lb) 04/22/2021 8:38 AM EDT Height 177.8 cm (5' 10) 04/22/2021 8:38 AM EDT Body Mass Index 35.87 04/22/2021 8:38 AM EDT documented in this encounter Discharge Summaries * David Hess MD - 04/23/2021 7:39 AM EDT UROLOGY SERVICE Inpatient - Discharge Summary Patient Name: Topher Mosley Patient Age: 65 y.o. : 1955 Attending Physician: Calvin Garsia III, MD Date of Admission: 04/22/2021 Date of Discharge: 04/23/2021 Diagnosis: Active Hospital Problems Diagnosis ??? Postprocedural male urethral stricture Resolved Hospital Problems No resolved problems to display. Operations/Major Procedures: Operations: 04/22/2021 Surgeon(s) and Role: * Calvin Garsia III, MD - Primary * David Hess MD - Resident: Procedure(s): URETHROPLASTY,ONE-STAGE RECONSTRUCTION OF MALE ANTERIOR URETHRA (WRVU 17.68) MODIFIER-CYSTOSCOPY HPI: Topher Mosley 65 y.o. male with obstructive urinary symptoms, recurrent UTIs, and a proximal bulbar stricture who presents for one-stage urethroplasty. ?? No changes to medications, no fevers, chills, headaches, chest pain, new cough, nausea, emesis, constipation, diarrhea, difficulty urinating, one sided numbness or tingling sensation. Denies recent hospitalization. ?? PMH: Prostate cancer (manged with watchful waiting), DMII, obesity ?? 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 ?? 10-100,000 mixed gram positive ángel. ??Per Dr. Upton, Keflex 500BID x 5 days. ? Hospital Course: Topher Mosley was admitted to [facility] on 04/22/2021 through the Same Day Surgery program after undergoing the procedure noted above. The intra-operative findings were: ?? Findings: cystoscopy notable for 1cm bulbar stricture; one-stage urethroplasty EPA performed; 16Fr silastic Casas in bladder After adequate recovery from anesthesia in the PACU, the patient was transferred to the floor in stable condition. The patient was advanced to a carb controlled diet, which he tolerated without complication. He was able to ambulate at his baseline. Topher Mosley's pain was adequately controlled, he was maintaining adequate oxygen saturation on room air, and was hemodynamically stable. He was tolerating a diet without abdominal complaints and voiding adequately. WBC and Hgb were stable. He was ambulating at his basline. Topher Mosley was evaluated by the Urology team and deemed medically stable for discharge on POD#1. His RHONA drain was removed prior to discharge. His Casas catheter was draining CYU at discharge. Updated Allergies/ADRs: No Known Allergies Pending Lab Data at Discharge: None Outpatient Services/Studies: No discharge procedures on file. Condition at Discharge: Stable Important Studies and Lab Data: Labs: Recent Labs 04/23/21 0133 WBC 4.3 HGB 11.9* HCT 35.1* PLATELET 144* Recent Labs 04/23/21 0133 NA 141 K 3.8 CL 107 CO2 27 BUN 9* CREATININE 0.74* GLUCOSE 184 CALCIUM 8.5 Studies: None Discharge Examination: Last value Range last 12 hrs Temperature Temp: 36.7 ??C (98.1 ??F) Temp: [36.6 ??C (97.9 ??F)-36.7 ??C (98.1 ??F)] Heart Rate Heart Rate: 88 Heart Rate: [66-88] Blood Pressure BP: 120/80 BP: (113-128)/(66-81) Respiratory Rate Resp: 16 Resp: [14-16] SpO2 SpO2: 94 % SpO2: [94 %-95 %] I/Os: I/O last 3 completed shifts: In: 1240 [P.O.:240; I.V.:1000] Out: 2560 [Urine:2024; Other:35; Blood:500] No intake/output data recorded. Physical Exam: General: Alert and oriented x4 Heart: RRR Lungs: No audible wheezing Abdomen: Soft, non-tender/distended Extremities: Warm, no edema : Perineal incision c/d/i; Casas with CYU; drain with SS output Discharge to: Home Discharge Conditions/Prognosis: Stable Discharge Medications: The following medications have been prescribed for you. If you notice any adverse reactions to your medications, please contact your primary care physician immediately or go tothe nearest Emergency Department. Your Medications New Medications Dose Details acetaminophen 325 mg Tab Commonly known as: Tylenol Take 2 tablets by mouth every 6 hours as needed for Pain. 650 mg Quantity: 30 tablet Refills: 1 ibuprofen 600 mg Tab Commonly known as: Advil Take 1 tablet by mouth every 6 hours as needed for Pain. 600 mg Quantity: 30 tablet Refills: 12 oxyCODONE 5 mg Tab Commonly known as: Roxicodone Take 1 tablet by mouth every 4 hours as needed for Pain. 5 mg Quantity: 8 tablet Refills: 0 polyethylene glycoL 17 gram Pwpk Commonly known as: Miralax Take 17 g by mouth daily as needed. 17 g Quantity: 14 each Refills: 0 senna-docusate 8.6-50 mg Tab Commonly known as: Pericolace Take 1 tablet by mouth daily as needed for Constipation. 1 tablet Quantity: 60 tablet Refills: 11 Continued medications, unchanged Dose Details BD Ultra-Fine Short Pen Needle 31 gauge x 5/16 Ndle Generic drug: insulin needles (disposable) Refills: 0 FluZONE High-Dose (PF) 180 mcg/0.5 mL Syrg inject 0.5 milliliters intramuscularly Generic drug: flu vacc [id number](65yr up)PF Refills: 0 Lantus Solostar U-100 Insulin 100 unit/mL (3 mL) pen Inject subcutaneously nightly. 35 units twice daily Generic drug: insulin glargine Refills: 0 Lyrica 300 mg Cap Take 300 mg by mouth 2 times daily. Generic drug: pregabalin 300 mg Refills: 0 metFORMIN 500 mg Tab Commonly known as: Glucophage Take 500 mg by mouth 2 times daily (with meals). 500 mg Refills: 0 omeprazole 40 mg Cpdr Commonly known as: PriLOSEC Refills: 0 rosuvastatin 5 mg Tab Commonly known as: Crestor Refills: 0 sucralfate 1 gram Tab Commonly known as: Carafate Refills: 0 tamsulosin 0.4 mg Cap Commonly known as: Flomax Refills: 0 testosterone 20.25 mg/1.25 gram (1.62 %) Glpm Commonly known as: ANDROGEL Refills: 0 venlafaxine 150 mg Cp24 Commonly known as: EFFEXOR-XR Take 150 mg by mouth daily. 150 mg Refills: 0 Victoza 3-Andrew 0.6 mg/0.1 mL (18 mg/3 mL) Pnij Generic drug: liraglutide Refills: 0 STOPPED Medications cephALEXin 500 mg Cap Commonly known as: Keflex Follow-up Care & Plans: For questions, orders or appointments related to your continuing care after your discharge, you or your provider should contact the physician that managed that part of your care. Urology Clinic: [phone] PCP: AMANUEL Gonzalez, . Please follow-up with your PCP in 1-2 weeks or sooner as needed. Issues to be followed-up with your PCP: 1. Scheduled Appointments: The following appointments have been scheduled on your behalf: Outpatient Services/Studies: No discharge procedures on file. Instructions Given to Patient at Discharge: Patient Instructions DISCHARGE INSTRUCTIONS CALL YOUR PHYSICIAN IF: ?? You have a fever greater than 101 degrees F within one month of your surgery. ?? You have diarrhea or vomiting for more than 24 hours, or stop having bowel movements or passing gas. ?? You have worsening pain, not controlled with your pain medication. ?? You develop redness, swelling, or new drainage from your wound. ?? You notice decreased urine output, or the catheter stops draining. ?? You have any other acute change in your health status. MEDICATIONS You may take acetaminophen (Tylenol) or ibuprofen (Advil) for pain control. For intense pain, you have been prescribed narcotic pain medications to control your discomfort after surgery. Do NOT use alcohol, drive, or operate heavy or complex machinery while taking these medications, asthey make impair your ability to perform these activities safely. Narcotic pain medications may cause constipation. Stool softeners, such as Colace; mild laxatives, such as Milk of Magnesia, Sennakot, or Ducolax tabs; or enemas may be used if needed and are [id number] medications available at most local pharmacies. Prunes or prune juice, taken daily, can also be helpful for constipation treatment or prevention and are available at most supermarkets. DRIVING RESTRICTIONS Do not operate a vehicle if you are too sore from surgery to enter or exit your vehicle comfortably, or if you are too sore to easily check your blind spot. No driving while using prescription pain medications. ACTIVITIES No heavy lifting. You may lift what is comfortable to lift with one arm. Nothing greater than 10 pounds (e.g., a full gallon jug) until re-evaluated by your physician. Discuss return to work or school with your physician. Take several slow, short walks each day for the first two weeks, and gradually increase your distance. Exercise will assist in your recovery. No straddle activities, such a riding a bike, motorcycle, horse or geophysical support specialist for 6 weeks. DIET Eat a well-balanced diet. Fresh fruits, vegetables and fiber-containing foods are recommended. Thiswill assist in wound healing. WOUND CARE You can shower as usual and wash the incision area gently. Pat the incision dry with a clean, dry towel. Do not soak the wound (avoid spas, pools, and bathtubs) until it is fully healed. Do not use creams, oils, or ointments on the wound. Keep the wound open to air if it is not draining. Do not remove sutures. Continue a mechanical soft diet for the next 2 weeks. This will help your mouth heal. Continue touse the prescription mouth wash twice per day for 2 weeks. CATHETER CARE Please keep the Casas catheter in place and capped. Please keep the suprapubic tube in place connected to a drainage bag. Do not remove the catheters. If the catheter becomes dislodged, please call our office. COMFORT Some incision soreness can be expected. Take your pain medication as needed and prescribed. Slowly decrease your use of pain medication as pain lessens. CONTACT INFORMATION To contact your provider or change your appointment, please call the Urology clinic at during business hours or during off-hours. FOLLOW-UP APPOINTMENT You will be scheduled to see Dr. Garsia in 3 weeks post-op for a wound check. If you do not hear from the clinic in next few days, do not hesitate to call the number listed above to have your appointment scheduled. General Instructions None Call your doctor if: Please call your doctor immediately or go to an Emergency Department if you notice worsening pain not controlled by pain medications, uncontrolled headache, vision changes, chest pain, difficulty breathing, persistent nausea and vomiting, new redness or swelling in any extremities, new onset weakness or changes in sensation, or for any fevers greater than 101.3 F. Your care was managed by the Urologic Surgery Team at [facility]. If you have any questions or concerns, please feel free to contact us. Provider Contact Information: Urology Clinic: [phone] [facility] (after business hours): CC: AMANUEL Gonzalez Signed: David Hess MD 04/23/2021 Discharge References/Attachments None documented in this encounter Discharge Instructions * Patient Instructions* David Hess MD - 04/22/2021 2:37 PM EDT DISCHARGE INSTRUCTIONS CALL YOUR PHYSICIAN IF: ?? You have a fever greater than 101 degrees F within one month of your surgery. ?? You have diarrhea or vomiting for more than 24 hours, or stop having bowel movements or passing gas. ?? You have worsening pain, not controlled with your pain medication. ?? You develop redness, swelling, or new drainage from your wound. ?? You notice decreased urine output, or the catheter stops draining. ?? You have any other acute change in your health status. MEDICATIONS You may take acetaminophen (Tylenol) or ibuprofen (Advil) for pain control. For intense pain, you have been prescribed narcotic pain medications to control your discomfort after surgery. Do NOT use alcohol, drive, or operate heavy or complex machinery while taking these medications, asthey make impair your ability to perform these activities safely. Narcotic pain medications may cause constipation. Stool softeners, such as Colace; mild laxatives, such as Milk of Magnesia, Sennakot, or Ducolax tabs; or enemas may be used if needed and are ircd-iss-dmrebok medications available at most local pharmacies. Prunes or prune juice, taken daily, can also be helpful for constipation treatment or prevention and are available at most supermarkets. DRIVING RESTRICTIONS Do not operate a vehicle if you are too sore from surgery to enter or exit your vehicle comfortably, or if you are too sore to easily check your blind spot. No driving while using prescription pain medications. ACTIVITIES No heavy lifting. You may lift what is comfortable to lift with one arm. Nothing greater than 10 pounds (e.g., a full gallon jug) until re-evaluated by your physician. Discuss return to work or school with your physician. Take several slow, short walks each day for the first two weeks, and gradually increase your distance. Exercise will assist in your recovery. No straddle activities, such a riding a bike, motorcycle, horse or geophysical support specialist for 6 weeks. DIET Eat a well-balanced diet. Fresh fruits, vegetables and fiber-containing foods are recommended. Thiswill assist in wound healing. WOUND CARE You can shower as usual and wash the incision area gently. Pat the incision dry with a clean, dry towel. Do not soak the wound (avoid spas, pools, and bathtubs) until it is fully healed. Do not use creams, oils, or ointments on the wound. Keep the wound open to air if it is not draining. Do not remove sutures. Continue a mechanical soft diet for the next 2 weeks. This will help your mouth heal. Continue touse the prescription mouth wash twice per day for 2 weeks. CATHETER CARE Please keep the Casas catheter in place and capped. Please keep the suprapubic tube in place connected to a drainage bag. Do not remove the catheters. If the catheter becomes dislodged, please call our office. COMFORT Some incision soreness can be expected. Take your pain medication as needed and prescribed. Slowly decrease your use of pain medication as pain lessens. CONTACT INFORMATION To contact your provider or change your appointment, please call the Urology clinic at during business hours or during off-hours. FOLLOW-UP APPOINTMENT You will be scheduled to see Dr. Garsia in 3 weeks post-op for a wound check. If you do not hear from the clinic in next few days, do not hesitate to call the number listed above to have your appointment scheduled. documented in this encounter Medications at Time of Discharge [...] 31 gauge x 5/16 Needle 0 03/28/2019 oxyCODONE (Roxicodone) 5 mg Tablet Take 1 tablet by mouth every 4 hours as needed for Pain. 8 tablet 04/23/2021 07/25/2021 FLUZONE HIGH-DOSE 2018-, PF, 180 mcg/0.5 mL Syringe inject 0.5 milliliters intramuscularly 0 07/01/2019 11/29/2021 documented as of this encounter Progress Notes * Kathryn Argueta RN - 04/23/2021 12:11 PM EDT Topher Mosley discharged to Home by private car with Spouse. All belongings sent with patient. HITESH removed, incision healing well, no significant drainage, no dehiscence, skin free from pressure ulcers. Discharge instructions, medications, and follow-up appointments reviewed, education providedon casas catheter care, paper prescriptions given to patient, all questions answered. Patient instructed to call with concerns. * Stefan Hudson RN - 04/22/2021 4:48 PM EDT Received report from Chantelle in PACU. Arrived to room 211A at 1620. A&O x4. VSS. Pain 0/10. IS teaching completed. SCD's ordered. Oriented to use of call reagan, bed.chair alarm, and [facility] falls prevention program. Will check MD orders and continue to monitor. * Chantelle Vega RN - 04/22/2021 2:42 PM EDT Pt to PACU via bed from OR; monitors applied, alarms set and audible. 1500: Woke up easily from Anesthesia, comfortable, VSS. documented in this encounter H&P Notes * David Hess MD - 04/22/2021 9:11 AM EDT Urology PreOp H&P Topherphani Mosley 65 y.o. male with obstructive urinary symptoms, recurrent UTIs, and a proximal bulbar stricture who presents for one-stage urethroplasty. No changes to medications, no fevers, chills, headaches, chest pain, new cough, nausea, emesis, constipation, diarrhea, difficulty urinating, one sided numbness or tingling sensation. Denies recent hospitalization. 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 10-100,000 mixed gram positive ángel. Per Dr. Upton, Keflex 500BID x 5 days. No current facility-administered medications on file prior to encounter. Current Outpatient Medications on File Prior to Encounter Medication Sig Dispense Refill ??? Victoza 3-Andrew 0.6 mg/0.1 mL (18 mg/3 mL) Pen Injector ??? insulin glargine (LANTUS SOLOSTAR U-100 INSULIN) 100 unit/mL (3 mL) pen Inject subcutaneously nightly. 35 units twice daily ??? metFORMIN (GLUCOPHAGE) 500 mg Tablet Take 500 mg by mouth 2 times daily (with meals). ??? venlafaxine (EFFEXOR-XR) 150 mg Capsule, Sust. Release 24 hr Take 150 mg by mouth daily. ??? pregabalin (LYRICA) 300 mg Capsule Take 300 mg by mouth 2 times daily. ??? sucralfate (CARAFATE) 1 gram Tablet ??? omeprazole (PRILOSEC) 40 mg Capsule, Delayed Release(E.C.) ??? rosuvastatin (CRESTOR) 5 mg Tablet ??? tamsulosin (FLOMAX) 0.4 mg Capsule ??? FLUZONE HIGH-DOSE , PF, 180 mcg/0.5 mL Syringe inject 0.5 milliliters intramuscularly 0 ??? testosterone (ANDROGEL) 20.25 mg/1.25 gram (1.62 %) Gel in Metered-dose Pump ??? BD ULTRA-FINE SHORT PEN NEEDLE 31 gauge x 5/16 Needle 0 No Known Allergies There were no vitals filed for this visit. Exam: General: Alert and oriented x4 Heart: RRR Lungs: No audible wheezing Abdomen: Soft, non-tender/distended Extremities: Warm, no edema No results found for this or any previous visit (from the past 24 hour(s)). Assessment/Plan Proceed with scheduled procedure Procedure(s): URETHROPLASTY,ONE-STAGE RECONSTRUCTION OF MALE ANTERIOR URETHRA (WRVU 17.68) EXCISION OF MUCOSA OF VESTIBULE OF MOUTH DONOR GRAFT (WRVU 2.83) INJECTION PROCEDURE FOR RETROGRADE URETHROCYSTOGRAPHY (WRVU 1.05) documented in this encounter Miscellaneous Notes * Plan of Care - Boby Chowdary RN - 04/23/2021 1:27 AM EDT OUTCOME EVALUATION NOTE: OUTCOME SUMMARY: Patient A&Ox4, VSS, resting between care. Pain up to 8/10; PRN oxy x1. Denies nausea. Adequate UOP via casas catheter. No BM this shift; refused bowel meds, hypoactive bowel sounds. RHONA with serosanguinous drainage. Will continue to monitor. PLAN MOVING FORWARD: Pain management OOB and ambulation as tolerated Casas education RHONA teaching Discharge planning - 04/23 home INDIVIDUALIZED FALL PREVENTION INTERVENTIONS: High fall risk Patient-specific fall risk factors per assessment: [current deficits]: first 24hr on unit, 2 or more active diagnoses, recent surgery, acute pain, opioid analgesia, PIV, intermittent infusions, generalized weakness, Assistance [level of assistance required for transfers and ambulation]: Not OOB Supervision [direct monitoring required during toileting and ADLs]: Hands on Surveillance [continuous indirect monitoring]: Bed/chair alarm, masimo, hourly rounding, room near unit station, NKE at bedside, yellow fall band on, environmental modifications (clutter-free environment, tubing secured, bed low, lighting adjusted, nonskid socks when OOB, bed wheels locked, call light with in reach, upper side rails x2, ID bands on) Patient-specific fall prevention interventions for sensory deficits provided, if applicable: [X] N/A CPG GOAL OUTCOME EVALUATION: * Op Note - Calvin Garsia III, MD - 04/22/2021 2:42 PM EDT Operative Note Patient Name: Topher Mosley : [id number] MR#: [id number] Case Date: 04/22/2021 Surgeon: Surgeon(s) and Role: * Calvin Garsia III, MD - Primary * David Hess MD - Resident Preoperative diagnosis: Stricture of anterior urethra in male, unspecified stricture type Postoperative diagnosis: Stricture of anterior urethra in male, unspecified stricture type Procedure(s) (LRB): URETHROPLASTY,ONE-STAGE RECONSTRUCTION OF MALE ANTERIOR URETHRA (WRVU 17.68) (N/A) MODIFIER-CYSTOSCOPY Anesthesia: General Findings: cystoscopy notable for 1cm bulbar stricture; one-stage urethroplasty EPA performed; 16Fr silastic Casas in bladder Complications: None Estimated Blood Loss: 500 mL Specimens removed during surgery: * No orders in the log * Fluids: Intraprocedure Crystalloid Total None PRBCs: none (See Anesthesia Record/Report for Other Blood Products) Urine Output: (no urine output recorded) Drains: 16Fr Casas in bladder Disposition: awakened from anesthesia, extubated and taken to the recovery room in a stable condition, having suffered no apparent untoward event. Condition: doing well without problems (Please see the Surgical Encounter Summary for any Implant and Specimen details pertinent to this patient.) Infection Bundle used? No HPI: Topher Mosley 65 y.o. male with obstructive urinary symptoms, recurrent UTIs, and a proximal bulbar stricture who presents for one-stage urethroplasty. Procedure Description: Patient was identified in the prestaging area. The risks and the benefits ofthe procedure were discussed with the patient. Consent was verified. He was then brought back to the operating room and placed supine on the operating table. General anesthesia was induced. The patient was then moved to the dorsolithotomy position and prepped and draped in usual sterile fashion. The flexible cystoscope was inserted to patient's urethra. Flexible urethroscopy was performed. Identified a pinpoint stricture in the bulbar urethra. A pediatric Glidewire was inserted through the stricture into the bladder. The scope was then removed. A Tammi catheter was then placed over the wire into the bladder. The wire was then removed. The Tammi balloon was then inflated. The Tammi balloon was then seated at the proximal aspect of the stricture. A 15 blade was used to make an approximately a centimeter incision down the patient's perineum. Electrocautery was used to incise the subcutaneous tissue until the urethra was identified. The bulbospongiosus muscle was sharply incised with the Robyn. The urethra was quickly mobilized using a combination of the Metzenbaum scissors and electrocautery. A right angle was placed behind the urethra and a plane was developed posterior to the urethra at the base of the corporal bodies. A [place] drain was placed around the urethra for retraction. We then used the Metzenbaum scissors to carry our dissection proximally and distally at the urethra to further mobilize it. Next we inserted a 26 Fr metalli c bougie dilator down the patient's urethra. It was advanced all the way until resistance was met at the proximal location of the distal aspect of the stricture. We then identified the area between the Tammi balloon and blue dilator. The Metzenbaums was used to transect across this area creating two cut ends of the urethra. The bougie dilator and the Tammi balloon were then removed. The proximal aspect of the urethra was then spatulated dorsally while the distal end of the urethra was spatulated ventrally. We then placed a series of interrupted 4-0 Vicryl sutures to reapproximate the urethra. These were then tied down moving dorsally to ventrally to create a watertight anastomosis. We th en placed a 16 Austrian Silastic catheter down the patient's urethra and into the bladder without complication. 10 cc of sterile water was placed in the balloon. We then seated the Casas catheter balloon at the bladder neck. A neuro drain was placed just eventually to the urethra and externalized to the right base of the scrotum. A 2-0 nylon was used to secure the drain. A 3-0 Vicryl suture was then used to reapproximateColles' fascia as well as the subcutaneous tissues. A 4-0 Vicryl suture was placed in a running vertical mattress fashion to reapproximate the skin edges. Dermabond was then applied to the incision. The patient was awoke from general anesthesia brought recovery room in stable condition. Dr. Garsia was present and scrubbed for entire procedure. I was the attending physician supervising the resident in the above care and was present and scrubbed for the entire surgical procedure. * Brief Op Note - Calvin Garsia III, MD - 04/22/2021 2:15 PM EDT Brief Operative Note Patient Name: Topher Mosley : [id number] MR#: [id number] Case Date: 04/22/2021 Surgeon: Surgeon(s) and Role: * Calvin Garsia III, MD - Primary * David Hess MD - Resident Preoperative diagnosis: Stricture of anterior urethra in male, unspecified stricture type Postoperative diagnosis: Stricture of anterior urethra in male, unspecified stricture type Procedure(s) (LRB): URETHROPLASTY,ONE-STAGE RECONSTRUCTION OF MALE ANTERIOR URETHRA (WRVU 17.68) (N/A) MODIFIER-CYSTOSCOPY Anesthesia: General Findings: cystoscopy notable for 1cm bulbar stricture; one-stage urethroplasty EPA performed; 16Fr silastic Casas in bladder Complications: None Estimated Blood Loss: 500 mL Specimens removed during surgery: * No orders in the log * Fluids: Intraprocedure Crystalloid Total None PRBCs: none (See Anesthesia Record/Report for Other Blood Products) Urine Output: (no urine output recorded) Drains: 16Fr Casas in bladder Disposition: awakened from anesthesia, extubated and taken to the recovery room in a stable condition, having suffered no apparent untoward event. Condition: doing well without problems (Please see the Surgical Encounter Summary for any Implant and Specimen details pertinent to this patient.) Infection Bundle used? No I was present and scrubbed for the entire surgical procedure. documented in this encounter Plan of Treatment Not on file documented as of this encounter Procedures Procedure Name Priority Date/Time Associated Diagnosis Comments POCT GLUCOSE Routine 04/23/2021 7:50 AM EDT HEMOGRAM Routine 04/23/2021 1:33 AM EDT DIFFERENTIAL, AUTOMATED Routine 04/23/2021 1:33 AM EDT HC VENIPUNCTURE Routine 04/23/2021 1:33 AM EDT BASIC METABOLIC PANEL Routine 04/23/2021 1:33 AM EDT POCT GLUCOSE Routine 04/22/2021 9:22 PM EDT POCT GLUCOSE Routine 04/22/2021 4:47 PM EDT POCT GLUCOSE Routine 04/22/2021 2:28 PM EDT MODIFIER-CYSTOSCOPY 04/22/2021 1 0:05 AM EDT Stricture of anterior urethra in male, unspecified stricture type URETHROPLASTY,ONE-STAG E RECONSTRUCTION OF MALE ANTERIOR URETHRA (WRVU 17.68) 04/22/2021 10:05 AM EDT Stricture of anterior urethra in male, unspecified stricture type POCT GLUCOSE Routine 04/22/2021 9:16 AM EDT documented in this encounter Results * POCT Glucose (04/23/2021 7:50 AM EDT) [facility] Glucose, POC 181 65 - 199 mg/dL [facility] Comment: Supplemental ranges: <140 mg/dL before meals <180 mg/dL all other times of the day Blood 04/23/2021 7:50 AM EDT 04/23/2021 7:50 AM EDT Calvin Garsia III, MD POINT OF CARE JORGE T ORDERABLES Performing Organization Address [facility]/ZIP Co de Phone Number [facility] [place] [address] * (ABNORMAL) Differential, Automated (04/23/2021 1:33 AM EDT) Neutrophil % 76.9 % [facility] Neutrophil Absolute 3.31 1.70 - 6.10 x10(3)/mc L [facility] Lymph % 12.6 % [facility] Lymphocytes Abs 0.5(L) 0.9 - 3.2 x10(3)/mc L [facility] Monocyte % 7.0 % [facility] Monocyte Abs 0.3 0.3 - 0.9 x10(3)/mc L [facility] Eos % 2.1 % [facility] Eosinophils Abs 0.1 0.0 - 0.4 x10(3)/mc L [facility] Basophil % 0.9 % [facility] Baso Absolute 0.0 0.0 - 0.1 x10(3)/mc L [facility] Immature Gran % 0.50 % [facility] Comment: Immature granulocytes(IG's)percentage and absolute count will include metamyelocytes, myelocytes, and promyelocytes. Blood smears from CBCs yielding IG's will be scanned manually for concordance. If this scan disagrees with the automated IG or if promyelocytes are noted, a manual differential will be performed. Immature Gran Absolute 0.02 0.00 - 0.04 x10(3)/mc L [facility] Blood 04/23/2021 1:33 AM EDT 04/23/2021 1:36 AM EDT Narrative Resulting Agency Comment Spec In Lab David Hess MD HEMATOLOGY ORDERABLE S Performing Organization Address [facility]/ZIP Co de Phone Number [facility] [place] [address] * (ABNORMAL) Hemogram (04/23/2021 1:33 AM EDT) White Blood Cell 4.3 4.0 - 9.5 x10(3)/mc L [facility] Red Blood Cell 3.88(L) 4.58 - 5.54 x10(6)/mc L [facility] Hemoglobin 11.9(L) 13.7 - 16.5 gm/dL [facility] Hematocrit 35.1(L) 40.5 - 48.5 % [facility] Mean Cell Volume 90.5 82.9 - 93.1 [facility] Mean Cell Hemoglobin 30.7 27.5 - 32.[address] [facility] Mean Cell Hemoglobin Concentration 33.9 32.0 - 35.7 gm/dL [facility] Platelet 144(L) 145 - 357 x10(3)/[facility] RDW Standard Deviation 42.1 36.0 - 45.0 [facility] RDW coefficient of variation 12.7 11.4 - 13.8 % [facility] Mean Platelet Volume 9.4 7.6 - 12.9 [facility] NRBC% auto 0.0 % [facility] NRBC Absolute 0.000 0.000 - 0.000 x10(3)/[facility] Blood 04/23/2021 1:33 AM EDT 04/23/2021 1:36 AM EDT Narrative Resulting Agency Comment Spec In Lab David Hess MD HEMATOLOGY ORDERABLE S [facility] [place] [address] * (ABNORMAL) Basic Metabolic Panel (non-fasting) (04/23/2021 1:33 AM EDT) Glucose 184 65 - 199 mg/dL [facility] Comment:Diabetes: >=200 mg/d L plus symptoms Blood Urea Nitrogen 9(L) 10 - 20 mg/dL [facility] Creatinine 0.74(L) 0.80 - 1.50 mg/dL [facility] Sodium 141 135 - 145 mmol/L [facility] Potassium 3.8 3.5 - 5.0 mmol/L [facility] Comment: Please note: ??Patients with WBC >100,000 may have falsely elevated Potassium levels. ??For accurate Potassium quantification in these patients send serum separator tube (gold top) for subsequent determinations. ??Contact the Clinical Chemistry Laboratory if there are any questions. Chloride 107 98 - 107 mmol/L [facility] Carbon Dioxide 27 22 - 31 mmol/L [facility] Anion Gap 7 5 - 15 mmol/L [facility] Calcium 8.5 8.5 - 10.5 mg/dL [facility] Est Glomerular Filtration Rate 96 >=60 mL/min/1. 73 m?? [facility] Comment: This patient? s estimated [...] Calvin Garsia III, MD CHEMISTRY ORDERAB LES [facility] [place] [address] * (ABNORMAL) POCT Glucose (04/22/2021 9:22 PM EDT) Glucose, POC 239(H) 65 - 199 mg/dL [facility] Comment: Supplemental ranges: <140 mg/dL before meals <180 mg/dL all other times of the day Blood 04/22/2021 9:22 PM EDT 04/22/2021 9:22 PM EDT Calvin Garsia III, MD POINT OF CARE JORGE T ORDERABLES Performing Organization Address City/[facility]/ZIP Co de Phone Number [facility] [place] [address] * (ABNORMAL) POCT Glucose (04/22/2021 4:47 PM EDT) Glucose, POC 210(H) 65 - 199 mg/dL [facility] Comment: Supplemental ranges: <140 mg/dL before meals <180 mg/dL all other times of the day Blood 04/22/2021 4:47 PM EDT 04/22/2021 4:47 PM EDT Calvin Garsia III, MD POINT OF CARE JORGE T ORDERABLES Performing Organization Address City/[facility]/ZIP Co de Phone Number [facility] [place] [address] * POCT Glucose (04/22/2021 2:28 PM EDT) Glucose, POC 144 65 - 199 mg/dL [facility] Comment: Supplemental ranges: <140 mg/dL before meals <180 mg/dL all other times of the day Blood 04/22/2021 2:28 PM EDT 04/22/2021 2:28 PM EDT Calvin Garsia III, MD POINT OF CARE JORGE T ORDERABLES [facility] [place] [address] * POCT Glucose (04/22/2021 9:16 AM EDT) Glucose, POC 110 65 - 199 mg/dL [facility] Comment: Supplemental ranges: <140 mg/dL before meals <180 mg/dL all other times of the day Blood 04/22/2021 9:16 AM EDT 04/22/2021 9:16 AM EDT Calvin Garsia III, MD POINT OF CARE JORGE T ORDERABLES [facility] [place] [address] documented in this encounter Visit Diagnoses Not on filedocumented in this encounter Admitting Diagnoses Diagnosis Postprocedural male urethral stricture Postoperative urethral stricture documented in this encounter Administered Medications Inactive Administered Medications - up to 3 most recent administrations Medication Order MAR Action Action Date Dose Rate Site acetaminophen (Tylenol) tablet 1,000 mg 1,000 mg, Oral, ONCE, 1 dose, On Thu04/22/21 at 0930, Administer with SIP of H2O only., Day of Surgery (Day of Procedure), Routine Given 04/22/2021 9:41 AM EDT 1,000 mg acetaminophen (Tylenol) tablet 975 mg 975 mg, Oral, EVERY 6 HOURS SCHEDULED, First dose on Thu04/22/21 at 1800, Until Discontinued, Maximum dose of acetaminophen is 4000 mg from all sources in 24 hours. When ordered for pain, acetaminophen should be given even when other ordered pain medications are indicated. , Routine Given 04/23/2021 5:46 AM EDT 975 mg Given 04/23/2021 12:29 AM EDT 975 mg Given 04/22/2021 5:01 PM EDT 975 mg dextrose 10% infusion 250 mL, at 1,000 mL/hr, Intravenous, EVERY 30 MIN PRN, Starting on Thu04/22/21 at 1845, Until Thu04/23/21 at 1441, For BG 50-70 mg/dL: Oral treatment preferred:?? If able to drink, give 120 mL Juice or Regular (not diet) soda OR If NPO, give 15 gram glucose 40% oral gel massaged into buccal mucosa OR if unconscious or uncooperative, give 25 gram (250 mL) Dextrose 10% IV over 15 minutes per protocol OR, if no IV access, 1 mg Glucagon IM. For BG less than 50 mg/dL: Oral treatment preferred:?? If able to drink, give 240 mL Juice or Regular (not diet) soda OR If NPO, give 30 gram glucose 40% oral gel massaged in buccal mucosa OR if unconscious or uncooperative, give 25 gram (250 mL) Dextrose 10% IV over 15 minutes per protocol OR, if no IV access, 1 mg Glucagon IM. Recheck BG in 30 minutes. May repeat juice/soda, gel, dextrose or glucagon once per episode. For persistent hypoglycemia, consider longer-acting treatment for the duration of the active insulin. glucagon (Glucagen) (1 mg/mL) injection solution 1 mg 1 mg, Intramuscular, EVERY 30 MIN PRN, Starting on Thu04/22/21 at 1845, Until Thu04/23/21 at 1441, Low blood sugar, For BG 50-70 mg/dL: Oral treatment preferred:?? If able to drink, give 120 mL Juice or Regular (not diet) soda OR If NPO, give 15 gram glucose 40% oral gel massaged into buccal mucosa OR if unconscious or uncooperative, give 25 gram (250 mL) Dextrose 10% IV over 15 minutes per protocol OR, if no IV access, 1 mg Glucagon IM. For BG less than 50 mg/dL: Oral treatment preferred:?? If able to drink, give 240 mL Juice or Regular (not diet) soda OR If NPO, give 30 gram glucose 40% oral gel massaged in buccal mucosa OR if unconscious or uncooperative, give 25 gram (250 mL) Dextrose 10% IV over 15 minutes per protocol OR, if no IV access, 1 mg Glucagon IM. Recheck BG in 30 minutes. May repeat juice/soda, gel, dextrose or glucagon once per episode. For persistent hypoglycemia, consider longer-acting treatment for the duration of the active insulin., Routine glucose (GLUTOSE) 40% oral geL 15-30 g, Buccal, EVERY 30 MIN PRN, Starting on Thu04/22/21 at 1845, Until Thu04/23/21 at 1441, Low blood sugar, For BG 50-70 mg/dL: Oral treatment preferred:?? If able to drink, give 120 mL Juice or Regular (not diet) soda OR If NPO, give 15 gram glucose 40% oral gel massaged into buccal mucosa OR if unconscious or uncooperative, give 25 gram (250 mL) Dextrose 10% IV over 15 minutes per protocol OR, if no IV access, 1 mg Glucagon IM. For BG less than 50 mg/dL: Oral treatment preferred:?? If able to drink, give 240 mL Juice or Regular (not diet) soda OR If NPO, give 30 gram glucose 40% oral gel massaged in buccal mucosa OR if unconscious or uncooperative, give 25 gram (250 mL) Dextrose 10% IV over 15 minutes per protocol OR, if no IV access, 1 mg Glucagon IM. Recheck BG in 30 minutes. May repeat juice/soda, gel, dextrose or glucagon once per episode. For persistent hypoglycemia, consider longer-acting treatment for the duration of the active insulin. 1 tube contains 15 grams of glucose (net weight of tube = 37.5 grams., Routine ibuprofen (Advil) tablet 600 mg 600 mg, Oral, EVERY 6 HOURS, First dose on Thu04/22/21 at 1500, Until Discontinued, Administer orally with milk or food to minimize GI irritation. Maximum dose of 3,200 mg from all sources in 24 hours, Routine Given 04/23/2021 8:15 AM EDT 600 mg Given 04/23/2021 4:50 AM EDT 600 mg Given 04/22/2021 8:28 PM EDT 600 mg insulin lispro (HumaLOG;Admelog) (100 unit/mL) subcutaneous injection vial 1-5 Units 1-5 Units, Subcutaneous, 3 TIMES DAILY BEFORE MEALS, First dose on Thu04/22/21 at 1630, Until Discontinued, CORRECTION BOLUS [1-4 Units] Sensitive Sliding Scale (BG in mg/dL): Correction factor 40 (1 unit of insulin is expected to drop the glucose 40 mg/dL) BG 160 - 200 Give 1 unit BG 201 - 240 Give 2 units BG 241 - 280 Give 3 units BG greater than 280, give 4 units and recheck BG in 2 hours. - If recheck BG is LESS than 280, give no insulin and resume schedule - If recheck BG is GREATER than 280, give 4 units and repeat BG in 2 hours (no more than 3 times) & call for new insulin orders. DO NOT hold if NPO, unless specifically directed to do so by written order. Per Blood Glucose Monitoring Policy, re-check a BG of > 240 mg/dL in 2 hours., Routine Given 04/23/2021 8:13 AM EDT 1 Units Given 04/22/2021 5:01 PM EDT 2 Units lidocaine ((GLYDO)) 2 % gel ONCE PRN, Starting on Thu04/22/21 at 1328, Until Thu04/23/21 at 1441, Intra-Operative (Intra-Procedure), Routine Given 04/22/2021 1:28 PM EDT 11 mLs oxyCODONE (Roxicodone) tablet 10-15 mg 10-15 mg, Oral, EVERY 4 HOURS PRN, Starting on Thu04/22/21 at 1439, Until Thu04/23/21 at 1441, Pain, severe pain (7-10), Initial dose 10mg. If pain control not adequate in 60 minutes, give additional 5mg, Routine Given 04/22/2021 8:30 PM EDT 10 mg oxyCODONE (Roxicodone) tablet 5-10 mg 5-10 mg, Oral, EVERY 4 HOURS PRN, Starting on Thu04/22/21 at 1439, Until Thu04/23/21 at 1441, Pain, moderate pain (4-6), Initial dose 5mg. If pain control not adequate in 60 minutes, give additional 5mg, Routine pantoprazole EC (Protonix) tablet 40 mg 40 mg, Oral, DAILY, First dose on Thu04/22/21 at 1945, Until Discontinued Given 04/23/2021 8:15 AM EDT 40 mg Given 04/22/2021 8:28 PM EDT 40 mg pregabalin (Lyrica) capsule 300 mg 300 mg, Oral, 2 TIMES DAILY, First dose on Thu04/22/21 at 2100, Until Discontinued, Routine Given 04/23/2021 8:14 AM EDT 300 mg Given 04/22/2021 8:29 PM EDT 300 mg rosuvastatin (Crestor) tablet 5 mg 5 mg, Oral, EVERY EVENING, First dose on Thu04/22/21 at 1945, Until Discontinued, Routine Given 04/22/2021 8:28 PM EDT 5 mg senna-docusate (Pericolace) 8.6-50 mg per tablet 1 tablet 1 tablet, Oral, DAILY, First dose on Thu04/22/21 at 1945, Until Discontinued, Routine Given 04/23/2021 8:15 AM EDT 1 tablet sodium chloride 0.9 % (flush) (BD PosiFlush Normal Saline 0.9) flush 5 mL 5 mL, Intravenous, 2 TIMES DAILY, First dose on Thu04/22/21 at 2100, Until Discontinued, Recovery (Recovery-Hospital Unit), Routine Given 04/23/2021 8:15 AM EDT 5 mLs Given 04/22/2021 8:31 PM EDT 5 mLs sodium chloride 0.9% infusion 75 mL/hr, Intravenous, CONTINUOUS, Starting on Thu04/22/21 at 1500, Until Thu04/23/21 at 0732 New Bag 04/22/2021 3:00 PM EDT 75 mL/hr 75 mL /hr venlafaxine XR (Effexor-XR) capsule 150 mg 150 mg, Oral, DAILY, First dose on Thu04/22/21 at 1945, Until Discontinued, DO NOT CRUSH OR OPEN, Routine Given 04/23/2021 8:14 AM EDT 150 mg documented in this encounter Active and Recently Administered Medications Times are shown in EDT. Scheduled Medication Order 04/21/2021 04/22/2021 04/23/2021 acetaminophen (Tylenol) tablet 1,000 mg (COMPLETED) 1,000 mg, Oral, ONCE, 1 dose, On Thu04/22/21 at 0930, Administer with SIP of H2O only., Day of Surgery (Day of Procedure), Routine 0941 (Given - Provider: Deep Delcid RN) acetaminophen (Tylenol) tablet 975 mg 975 mg, Oral, EVERY 6 HOURS SCHEDULED, First dose on Thu04/22/21 at 1800, Until Discontinued, Maximum dose of acetaminophen is 4000 mg from all sources in 24 hours. When ordered for pain, acetaminophen should be given even when other ordered pain medications are indicated. , Routine 1701 (Given - Provider: Stefan Hudson RN) 0029 (Given - Provider: Boby Chowdary RN)0546 (Given - Provider: Boby Chowdary RN)1200 (Due) ibuprofen (Advil) tablet 600 mg 600 mg, Oral, EVERY 6 HOURS, First dose on Thu04/22/21 at 1500, Until Discontinued, Administer orally with milk or food to minimize GI irritation. Maximum dose of 3,200 mg from all sources in 24 hours, Routine 1553 (Given - Provider: Chantelle Vega RN)2027 (Given - Provider: Boby Chowdary RN) 045 (Given - Provider: Boby Chowdary RN)0815 (Given - Provider: Kathryn Argueta, [place]) insulin lispro (HumaLOG;Admelog) (100 unit/mL) subcutaneous injection vial 1-5 Units(Linked Group 1) 1-5 Units, Subcutaneous, 3 TIMES DAILY BEFORE MEALS, First dose on Thu04/22/21 at 1630, Until Discontinued, CORRECTION BOLUS [1-4 Units] Sensitive Sliding Scale (BG in mg/dL): Correction factor 40 (1 unit of insulin is expected to drop the glucose 40 mg/dL) BG 160 - 200 Give 1 unit BG 201 - 240 Give 2 units BG 241 - 280 Give 3 units BG greater than 280, give 4 units and recheck BG in 2 hours. - If recheck BG is LESS than 280, give no insulin and resume schedule - If recheck BG is GREATER than 280, give 4 units and repeat BG in 2 hours (no more than 3 times) & call for new insulin orders. DO NOT hold if NPO, unless specifically directed to do so by written order. Per Blood Glucose Monitoring Policy, re-check a BG of > 240 mg/dL in 2 hours., Routine 170 (Given - Provider: Stefan Hudson RN) 0813 (Given - Provider: Kathryn Argueta RN)1130 (Due) pantoprazole EC (Protonix) tablet 40 mg 40 mg, Oral, DAILY, First dose on Thu04/22/21 at 1945, Until Discontinued 2027 (Given - Provider: Boby Chowdary RN) 0815 (Given - Provider: Kathryn Argueta, [place]) pregabalin (Lyrica) capsule 300 mg 300 mg, Oral, 2 TIMES DAILY, First dose on Thu04/22/21 at 2100, Until Discontinued, Routine 2028 (Given - Provider: Boby Chowdary RN) 0814 (Given - Provider: Kathryn Argueta RN) rosuvastatin (Crestor) tablet 5 mg 5 mg, Oral, EVERY EVENING, First dose on Thu04/22/21 at 1945, Until Discontinued, Routine 2027 (Given - Provider: Boby Chowdary RN) senna-docusate (Pericolace) 8.6-50 mg per tablet 1 tablet 1 tablet, Oral, DAILY, First dose on Thu04/22/21 at 1945, Until Discontinued, Routine 2028 (Not Given - Provider: Boby Chowdary RN - Reason: Patient/family refused) 0815 (Given - Provider: Kathryn Argueta RN) sodium chloride 0.9 % (flush) (BD PosiFlush Normal Saline 0.9) flush 5 mL 5 mL, Intravenous, 2 TIMES DAILY, First dose on Thu04/22/21 at 2100, Until Discontinued, Recovery (Recovery-Hospital Unit), Routine 2030 (Given - Provider: Boby Chowdary RN) 0815 (Given - Provider: Kathryn Argueta RN) venlafaxine XR (Effexor-XR) capsule 150 mg 150 mg, Oral, DAILY, First dose on Thu04/22/21 at 1945, Until Discontinued, DO NOT CRUSH OR OPEN, Routine 2026 (Not Given - Provider: Boby Chowdary RN - Reason: Patient/family refused - Comment: takes in the AM) 0814 (Given - Provider: Kathryn Argueta RN) Continuous Medication Order 04/21/2021 04/22/2021 04/23/2021 lactated ringers infusion (CANCELED) 1,000 mL, at 100 mL/hr, Intravenous, CONTINUOUS, Starting on Thu04/22/21 at 0930, Until Thu04/22/21 at 1547, Day of Surgery (Day of Procedure) 1103 (New Bag - Provider: Juan Miguel Mason MD)1313 (Anesthesia Volume Adjustment - Provider: Jocelyn Aguiar CRNA) sodium chloride 0.9% infusion (CANCELED) 75 mL/hr, Intravenous, CONTINUOUS, Starting on Thu04/22/21 at 1500, Until Thu04/23/21 at 0732 1500 (New Bag - Provider: Zaki Vega RN) PRN Medication Order 04/21/2021 04/22/202104/2304/23/2021 bisacodyL (Dulcolax) suppository 10 mg 10 mg, Rectal, DAILY PRN, Starting on Thu04/22/21 at 1845, Until Thu04/23/21 at 1441, Constipation, Administer if needed per patient's routine or if no bowel movement within 48 hours to achieve: (1) One bowel movement every 48 hours, AND (2) Without straining. If multiple PRN bowel medications ordered, start with magnesium hydroxide, then bisacodyl. Multiple medications may be given concomitantly for constipation., Routine dextrose 10% infusion(Linked Group 2) 250 mL, at 1,000 mL/hr, Intravenous, EVERY 30 MIN PRN, Starting on Thu04/22/21 at 1845, Until Thu04/23/21 at 1441, For BG 50-70 mg/dL: Oral treatment preferred:?? If able to drink, give 120 mL Juice or Regular (not diet) soda OR If NPO, give 15 gram glucose 40% oral gel massaged into buccal mucosa OR if unconscious or uncooperative, give 25 gram (250 mL) Dextrose 10% IV over 15 minutes per protocol OR, if no IV access, 1 mg Glucagon IM. For BG less than 50 mg/dL: Oral treatment preferred:?? If able to drink, give 240 mL Juice or Regular (not diet) soda OR If NPO, give 30 gram glucose 40% oral gel massaged in buccal mucosa OR if unconscious or uncooperative, give 25 gram (250 mL) Dextrose 10% IV over 15 minutes per protocol OR, if no IV access, 1 mg Glucagon IM. Recheck BG in 30 minutes. May repeat juice/soda, gel, dextrose or glucagon once per episode. For persistent hypoglycemia, consider longer-acting treatment for the duration of the active insulin. glucagon (Glucagen) (1 mg/mL) injection solution 1 mg(Linked Group 2) 1 mg, Intramuscular, EVERY 30 MIN PRN, Starting on Thu04/22/21 at 1845, Until Thu04/23/21 at 1441, Low blood sugar, For BG 50-70 mg/dL: Oral treatment preferred:?? If able to drink, give 120 mL Juice or Regular (not diet) soda OR If NPO, give 15 gram glucose 40% oral gel massaged into buccal mucosa OR if unconscious or uncooperative, give 25 gram (250 mL) Dextrose 10% IV over 15 minutes per protocol OR, if no IV access, 1 mg Glucagon IM. For BG less than 50 mg/dL: Oral treatment preferred:?? If able to drink, give 240 mL Juice or Regular (not diet) soda OR If NPO, give 30 gram glucose 40% oral gel massaged in buccal mucosa OR if unconscious or uncooperative, give 25 gram (250 mL) Dextrose 10% IV over 15 minutes per protocol OR, if no IV access, 1 mg Glucagon IM. Recheck BG in 30 minutes. May repeat juice/soda, gel, dextrose or glucagon once per episode. For persistent hypoglycemia, consider longer-acting treatment for the duration of the active insulin., Routine glucose (GLUTOSE) 40% oral geL(Linked Group 2) 15-30 g, Buccal, EVERY 30 MIN PRN, Starting on Thu04/22/21 at 1845, Until Thu04/23/21 at 1441, Low blood sugar, For BG 50-70 mg/dL: Oral treatment preferred:?? If able to drink, give 120 mL Juice or Regular (not diet) soda OR If NPO, give 15 gram glucose 40% oral gel massaged into buccal mucosa OR if unconscious or uncooperative, give 25 gram (250 mL) Dextrose 10% IV over 15 minutes per protocol OR, if no IV access, 1 mg Glucagon IM. For BG less than 50 mg/dL: Oral treatment preferred:?? If able to drink, give 240 mL Juice or Regular (not diet) soda OR If NPO, give 30 gram glucose 40% oral gel massaged in buccal mucosa OR if unconscious or uncooperative, give 25 gram (250 mL) Dextrose 10% IV over 15 minutes per protocol OR, if no IV access, 1 mg Glucagon IM. Recheck BG in 30 minutes. May repeat juice/soda, gel, dextrose or glucagon once per episode. For persistent hypoglycemia, consider longer-acting treatment for the duration of the active insulin. 1 tube contains 15 grams of glucose (net weight of tube = 37.5 grams., Routine HYDROmorphone (Dilaudid) (1 mg/mL) injection syringe 0.3 mg 0.3 mg, Intravenous, EVERY 2 HOURS PRN, Starting on Thu04/22/21 at 1845, Until Thu04/23/21 at 1441, Pain, For pain not controlled by oral medications, Routine lidocaine ((GLYDO)) 2 % gel (CANCELED) ONCE PRN, Starting on Thu04/22/21 at 1328, Until Thu04/23/21 at 1441, Intra-Operative (Intra-Procedure), Routine 1328 (Given - Provider: Calvin Garsia III, MD) lidocaine (Xylocaine) 1% (10 mg/mL) injection 3 mg 3 mg (0.3 mL), Subcutaneous, ONCE PRN, 1 dose, Starting on Thu04/22/21 at 1845, Until Thu04/23/21 at 1441, for discomfort with PIV insertion, Recovery (Recovery-Hospital Unit), Routine oxyCODONE (Roxicodone) tablet 10-15 mg(Linked Group 3) 10-15 mg, Oral, EVERY 4 HOURS PRN, Starting on Thu04/22/21 at 1439, Until Thu04/23/21 at 1441, Pain, severe pain (7-10), Initial dose 10mg. If pain control not adequate in 60 minutes, give additional 5mg, Routine 2030 (Given - Provider: Boby Chowdary RN) oxyCODONE (Roxicodone) tablet 5-10 mg(Linked Group 3) 5-10 mg, Oral, EVERY 4 HOURS PRN, Starting on Thu04/22/21 at 1439, Until Thu04/23/21 at 1441, Pain, moderate pain (4-6), Initial dose 5mg. If pain control not adequate in 60 minutes, give additional 5mg, Routine 2029 (See Alternative - Provider: Boby Chowdary RN) polyethylene glycoL (Miralax) packet 17 g 17 g, Oral, DAILY PRN, Starting on Thu04/22/21 at 1845, Until Thu04/23/21 at 1441, Constipation, Administer if no bowel movement within 48 hours to achieve: (1) One bowel movement at least every 48 hours, AND (2) without straining. If multiple PRN bowel medications ordered, start with polyethylene glycol, then lactulose, then oral bisacodyl, then bisacodyl suppository, then magnesium citrate, then tap water enema. Multiple medications may be given concomitantly for constipation., Routine sodium chloride 0.9 % (flush) (BD PosiFlush Normal Saline 0.9) flush 5-20 mL 5-20 mL, Intravenous, EVERY 1 MIN PRN, Starting on Thu04/22/21 at 1845, Until Thu04/23/21 at 1441, flush, Flush pertains to all indwelling lines. Flush per protocol found in the job aid using the link provided on this medication record., Recovery (Recovery-Hospital Unit), Routine Linked Groups Order Group 1: POCT Fingerstick Glucose (CANCELED) Routine, 4 TIMES DAILY BEFORE MEALS & AT BEDTIME, First occurrence on Thu04/22/21 at 1700, Until Specified, Consider choosing FOUR TIMES A DAY BEFORE MEALS AND AT BEDTIME as frequency for: Patients who have good hypoglycemia awareness: -Patients who are eating meals during the day and sleeping at night -Patient who are otherwise stable And insulin lispro (HumaLOG;Admelog) (100 unit/mL) subcutaneous injection vial 1-5 UnitsJump to med 1-5 Units, Subcutaneous, 3 TIMES DAILY BEFORE MEALS, First dose on Thu04/22/21 at 1630, Until Discontinued, CORRECTION BOLUS [1-4 Units] Sensitive Sliding Scale (BG in mg/dL): Correction factor 40 (1 unit of insulin is expected to drop the glucose 40 mg/dL) BG 160 - 200 Give 1 unit BG 201 - 240 Give 2 units BG 241 - 280 Give 3 units BG greater than 280, give 4 units and recheck BG in 2 hours. - If recheck BG is LESS than 280, give no insulin and resume schedule - If recheck BG is GREATER than 280, give 4 units and repeat BG in 2 hours (no more than 3 times) & call for new insulin orders. DO NOT hold if NPO, unless specifically directed to do so by written order. Per Blood Glucose Monitoring Policy, re-check a BG of > 240 mg/dL in 2 hours., Routine Group 2: glucose (GLUTOSE) 40% oral geLJump to med 15-30 g, Buccal, EVERY 30 MIN PRN, Starting on Thu04/22/21 at 1845, Until Thu04/23/21 at 1441, Low blood sugar, For BG 50-70 mg/dL: Oral treatment preferred:?? If able to drink, give 120 mL Juice or Regular (not diet) soda OR If NPO, give 15 gram glucose 40% oral gel massaged into buccal mucosa OR if unconscious or uncooperative, give 25 gram (250 mL) Dextrose 10% IV over 15 minutes per protocol OR, if no IV access, 1 mg Glucagon IM. For BG less than 50 mg/dL: Oral treatment preferred:?? If able to drink, give 240 mL Juice or Regular (not diet) soda OR If NPO, give 30 gram glucose 40% oral gel massaged in buccal mucosa OR if unconscious or uncooperative, give 25 gram (250 mL) Dextrose 10% IV over 15 minutes per protocol OR, if no IV access, 1 mg Glucagon IM. Recheck BG in 30 minutes. May repeat juice/soda, gel, dextrose or glucagon once per episode. For persistent hypoglycemia, consider longer-acting treatment for the duration of the active insulin. 1 tube contains 15 grams of glucose (net weight of tube = 37.5 grams., Routine Or dextrose 10% infusionJump to med 250 mL, at 1,000 mL/hr, Intravenous, EVERY 30 MIN PRN, Starting on Thu04/22/21 at 1845, Until Thu04/23/21 at 1441, For BG 50-70 mg/dL: Oral treatment preferred:?? If able to drink, give 120 mL Juice or Regular (not diet) soda OR If NPO, give 15 gram glucose 40% oral gel massaged into buccal mucosa OR if unconscious or uncooperative, give 25 gram (250 mL) Dextrose 10% IV over 15 minutes per protocol OR, if no IV access, 1 mg Glucagon IM. For BG less than 50 mg/dL: Oral treatment preferred:?? If able to drink, give 240 mL Juice or Regular (not diet) soda OR If NPO, give 30 gram glucose 40% oral gel massaged in buccal mucosa OR if unconscious or uncooperative, give 25 gram (250 mL) Dextrose 10% IV over 15 minutes per protocol OR, if no IV access, 1 mg Glucagon IM. Recheck BG in 30 minutes. May repeat juice/soda, gel, dextrose or glucagon once per episode. For persistent hypoglycemia, consider longer-acting treatment for the duration of the active insulin. Or glucagon (Glucagen) (1 mg/mL) injection solution 1 mgJump to med 1 mg, Intramuscular, EVERY 30 MIN PRN, Starting on Thu04/22/21 at 1845, Until Thu04/23/21 at 1441, Low blood sugar, For BG 50-70 mg/dL: Oral treatment preferred:?? If able to drink, give 120 mL Juice or Regular (not diet) soda OR If NPO, give 15 gram glucose 40% oral gel massaged into buccal mucosa OR if unconscious or uncooperative, give 25 gram (250 mL) Dextrose 10% IV over 15 minutes per protocol OR, if no IV access, 1 mg Glucagon IM. For BG less than 50 mg/dL: Oral treatment preferred:?? If able to drink, give 240 mL Juice or Regular (not diet) soda OR If NPO, give 30 gram glucose 40% oral gel massaged in buccal mucosa OR if unconscious or uncooperative, give 25 gram (250 mL) Dextrose 10% IV over 15 minutes per protocol OR, if no IV access, 1 mg Glucagon IM. Recheck BG in 30 minutes. May repeat juice/soda, gel, dextrose or glucagon once per episode. For persistent hypoglycemia, consider longer-acting treatment for the duration of the active insulin., Routine Group 3: oxyCODONE (Roxicodone) tablet 5-10 mgJump to med 5-10 mg, Oral, EVERY 4 HOURS PRN, Starting on Thu04/22/21 at 1439, Until Thu04/23/21 at 1441, Pain, moderate pain (4-6), Initial dose 5mg. If pain control not adequate in 60 minutes, give additional 5mg, Routine Or oxyCODONE (Roxicodone) tablet 10-15 mgJump to med 10-15 mg, Oral, EVERY 4 HOURS PRN, Starting on Thu04/22/21 at 1439, Until Thu04/23/21 at 1441, Pain, severe pain (7-10), Initial dose 10mg. If pain control not adequate in 60 minutes, give additional 5mg, Routine documented in this encounter Care Teams Internal Grinder Tender Relationship Specialty Start Date End Date Pillo Rabago PA PCP - General General Internal Medicine 08/05/19 documented as of this encounter
--- OUTSIDE RECORDS SUMMARY | 2024-07-01 10:25 | XMS_ITS | Encounter Summary ---
[place] [address] Care Team Providers Care Ceramic Saw Tender Name Role Phone Pillo Rabago Primary Care Provider Reason for Referral * Diagnostic Test (Emergency) - Closed Specialty Diagnoses / Procedures Referred By Contac t Referred To Contact Radiology Diagnoses Fibrosarcoma Intractable headache, unspecified chronicity pattern, unspecified headache type Procedures MRI Cervical Spine wwo Contrast Sudeep Ken MD [facility] [place] [address] [place] [address] Referral ID Status Reason Start Date Expiration Date V isits Requested Visits Authorized [id number] Closed Specialty Service Requested 1 1 * Diagnostic Test (Emergency) - Closed Specialty Diagnoses / Procedures Referred By Contac t Referred To Contact Radiology Diagnoses Fibrosarcoma Intractable headache, unspecified chronicity pattern, unspecified headache type Procedures MRI Brain wwo Contrast (Generic) Sudeep Ken MD [facility] [place] [address] [place] [address] Referral ID Status Reason Start Date Expiration Date V isits Requested Visits Authorized [id number] Closed Specialty Service Requested 1 1 Reason for Visit * Reason Comments Follow-up Encounter Details Date Type Department Care Team (Late st Contact Info) Description 08/17/2019 3:15 PM EST Office Visit General Surgery at [facility] [place] [address] Sudeep Ken MD [facility] [place] [address] Fibrosarcoma; Intractable headache, unspecified chronicity pattern, unspecified headache type Social History Tobacco Use Types Packs/Day [...] Sign Reading Time Taken Comments Blood Pressure - - Pulse - - Temperature - - Respiratory Rate - - Oxygen Saturation - - Inhaled Oxygen Concentration - - Weight 115.6 kg (254 lb 14.4 oz) 08/17/2019 3:12 PM EST Height - - Body Mass Index 36.57 08/05/2019 2:51 PM EDT documented in this encounter Progress Notes * Sudeep Ken MD - 08/17/2019 3:15 PM EST Patient returns to clinic before planned biopsy. Reports worsening headache and neck pain. No change in vision. Tylenol helps Afebrile, vitals stable Wound on scalp graft more/less the same as before, less erythema Given change in status of headache and improved cellulitis. Would like evaluation of head prior to heading to the OR. Patient strongly prefers having imaging prior to biopsy. - Urgent Head MRI and MRI spine given history of cervical osteiomylelitis which manifest in similarfashion documented in this encounter Plan of Treatment Not on file documented as of this encounter Results * MRI Cervical Spine [...] ? Electronically signed by: Maria Elena Tena [facility] ([phone]), at 10/19/2019 4:10 PM Narrative 10/19/2019 4:10 [...] below. Electronically signed by: Maria Elena Tena [facility]([phone]), at 10/19/2019 4:10 PM Sudeep Ken MD [facility] MRI ORDERABLES * MRI Brain wwo Contrast [...] ? Electronically signed by: Maria Elena Tena [facility] ([phone]), at 10/19/2019 4:02 PM Narrative 10/19/2019 4:02 [...] below. 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
--- OUTSIDE RECORDS SUMMARY | 2024-07-01 10:25 | XMS_ITS | Encounter Summary ---
Author Organization [facility] [place] [address] Care Team Providers Care Bulb Grader Name Role Phone Pillo Rabago Primary Care Provider [phone] Reason for Visit * Reason Comments Follow-up Encounter Details Date Type Department Care Team (Late st Contact Info) Description 10/19/2019 4:30 PM EST Office [place] [address] Sudeep Ken MD [facility] [place] [address] Fibrosarcoma Social History Tobacco Use Types Packs/Day [...] - Inhaled Oxygen Concentration - - Weight 112.2 kg (247 lb 4.8 oz) 10/19/2019 3:59 PM EST Height - - Body Mass Index 35.48 08/05/2019 2:51 PM EDT documented in this encounter Progress Notes * Sudeep Ken MD - 10/19/2019 4:30 PM EST Patient returns after MRI of head/neck and for repeat wound check. Since last evaluation, his scalpwound has completely healed. Headache gone. On exam, scalp lesion completely healed MRI reviewed personally and with patient Plan - At this point, I do not think that the very low likelihood of recurrent sarcoma comes close to outweigh morbidity of biopsy/excision. 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
--- OUTSIDE RECORDS SUMMARY | 2024-07-01 10:25 | XMS_ITS | Encounter Summary ---
Author Organization [facility] [place] [address] Care Team Providers Care Automatic Car Wash Attendant Name Role Phone Pillo Rabago Primary Care Provider Reason for Visit * Reason Onset Date Comments Follow-up 05/11/2020 Encounter Details Date Type Department Care Team (Late st Contact Info) Description 05/11/2020 [place] [address] Calvin Garsia III, MD [facility] [place] [address] Follow-up Social History Tobacco Use Types Packs/Day Years Used Date Smoking Tobacco: Former Cigarettes Smokeless Tobacco: Never Comments:August of 2014 qu it Sex and Gender Information Value Date Recorded Sex Assigned at Male 04/15/2021 8:56 AM EDT Gender Identity Male 04/15/2021 8:56 AM EDT Sexual Orientation Straight 04/15/2021 8: 56 AM EDT documented as of this encounter Miscellaneous Notes * Telephone Encounter - Calvin Garsia III, MD - 05/11/2020 4:52 PM EDT I spoke with Mr. Mosley on the advice of Dr. Hernandez re: urethral stricture. He seems amenable to discussing options for management of his stricture. He has a prostate MRI scheduled later this month but will need to be changed to accommodate a coordinated visit. documented in this encounter Plan of Treatment Not on file documented as of this encounter Visit Diagnoses Not on filedocumented in this encounter Care Teams Automatic Car Wash Attendant Relationship Specialty Start Date End Date Pillo Rabago PA PCP - General General Internal Medicine 08/05/19 documented as of this encounter
--- OUTSIDE RECORDS SUMMARY | 2024-07-01 10:25 | XMS_ITS | Encounter Summary ---
[place] [address] Care Team Providers Care Textile Examiner Name Role Phone Pillo Rabago Primary Care Provider Encounter Details Date Type Department Care Team (Late st Contact Info) Description 08/19/2019 Abstract [place] [address] Ly Daily Social History Tobacco Use Types Packs/Day Years [...] on filedocumented in this encounter Care Teams Textile Examiner Relationship Specialty Start Date End Date Pillo Rabago PA PCP - General General Internal Medicine 08/05/19 documented as of this encounter
--- OUTSIDE RECORDS SUMMARY | 2024-07-01 10:25 | XMS_ITS | Encounter Summary ---
Author Organization [facility] Address [facility] [place] [address] Care Team Providers Care Retail Reset Merchandiser Name Role Phone Pillo Rabago Primary Care Provider [phone] Reason for Visit * Auth/Cert Specialty Diagnoses [...] Expiration Date Visits Re quested Visits Authorized [id number] 1 1 Encounter Details Date Type Department Care Team (Latest Contact Info) Description 04/22/2021 7:57 AM EDT - 04/23/2021 12:41 PM EDT Hospital Encounter [address] [place] [address] Calvin Garsia III, MD [facility] [place] [address] Discharge Disposition: Home Social History Tobacco Use [...] Sign Reading Time Taken Comments Blood Pressure 138/67 04/23/2021 7:48 AM EDT Pulse 80 04/23/2021 7:48 AM EDT Temperature 37.1 ??C (98.8 ??F) 04/23/2021 7:48 AM ED T Respiratory Rate 16 04/23/2021 [...] Hospital Course: Topher Mosley was [place] [facility] [place] through the Same Day Surgery [...] insulin needles (disposable) Refills: 0 FluZONE High-Dose 2019-20 (PF) 180 mcg/0.5 mL Syrg inject 0.5 milliliters intramuscularly Generic drug: flu vacc [id number](65yr up)PF Refills: 0 Lantus Solostar U-100 Insulin [...] that part of your care. Urology Clinic: [phone] PCP: AMANUEL Gonzalez, . Please follow-up with [...] may be used if needed and are [id number] medications available at most local pharmacies. Prunes [...] a riding a bike, motorcycle, horse or crown assembly machine operator for 6 weeks. DIET Eat a well-balanced [...] managed by the Urologic Surgery Team at [facility]. If you have any questions or concerns, please feel free to contact us. Provider Contact Information: Urology Clinic: [phone] [facility] (after business hours): CC: AMANUEL Gonzalez Signed: [...] may be used if needed and are [id number]-[id number] medications available at most local pharmacies. Prunes [...] a riding a bike, motorcycle, horse or crown assembly machine operator for 6 weeks. DIET Eat a well-balanced [...] use of call reagan, bed.chair alarm, and 2 [place] falls prevention program. Will check MD orders and continue to monitor. * Chantelle Vega RN - 04/22/2021 2:42 PM EDT Pt to PACU via bed from OR; monitors applied, alarms set and audible. 1500: Woke up easily from Anesthesia, comfortable, VSS. documented in this encounter H&P Notes * David Hess MD - 04/22/2021 9:11 AM EDT Urology PreOp H&P Topherphani Youngaghi 65 y.o. male with obstructive urinary symptoms, [...] (FLOMAX) 0.4 mg Capsule ??? FLUZONE HIGH-DOSE 2019-20, PF, 180 mcg/0.5 mL [...] Operative Note Patient Name: Topher Mosley : [id number] MR#: [id number] Case Date: 04/22/2021 Surgeon: Surgeon(s) and Role: [...] the base of the corporal bodies. A Dez drain was placed around the urethra for [...] anastomosis. We th en placed a 16 Romanian Silastic catheter down the patient's urethra and [...] Operative Note Patient Name: Topher Mosley : [id number] MR#: [id number] Case Date: 04/22/2021 Surgeon: Surgeon(s) and Role: [...] * POCT Glucose (04/23/2021 7:50 AM EDT) Glucose, POC 181 65 - 199 mg/dL [facility] Comment: Supplemental ranges: <140 mg/dL before meals <180 mg/dL all other times of the day Blood 04/23/2021 7:50 AM EDT 04/23/2021 7:50 AM EDT Calvin Garsia III, MD POINT OF CARE JORGE T ORDERABLES [facility] [place] [address] * (ABNORMAL) Differential, Automated (04/23/2021 1:33 AM EDT) [facility] Neutrophil % 76.9 % [facility] Neutrophil Absolute 3.31 1.70 - 6.10 x10(3)/mc L [facility] Lymph % 12.6 % [facility] Lymphocytes Abs 0.5(L) 0.9 - 3.2 x10(3)/mc L [facility] Monocyte % 7.0 % [facility] Monocyte Abs 0.3 0.3 - 0.9 x10(3)/mc L [facility] Eos % 2.1 % [facility] Eosinophils Abs 0.1 0.0 - 0.4 x10(3)/ L [facility] Basophil % 0.9 % [facility] Baso Absolute 0.0 0.0 - 0.1 x10(3)/mc L [facility] Immature Gran % 0.50 % [facility] Comment: Immature granulocytes(IG's)percentage and absolute count will include metamyelocytes, myelocytes, and promyelocytes. Blood smears from CBCs yielding IG's will be scanned manually for concordance. If this scan disagrees with the automated IG or if promyelocytes are noted, a manual differential will be performed. Immature Gran Absolute 0.02 0.00 - 0.04 x10(3)/mc L [facility] Blood 04/23/2021 1:33 AM EDT 04/23/2021 1:36 AM EDT Narrative Resulting Agency Comment Spec In Lab David Hess MD HEMATOLOGY ORDERABLE S [facility] [place] [address] * (ABNORMAL) Hemogram (04/23/2021 1:33 AM EDT) [facility] White Blood Cell 4.3 4.0 - 9.5 x10(3)/mc L [facility] Red Blood Cell 3.88(L) 4.58 - 5.54 x10(6)/mc L [facility] Hemoglobin 11.9(L) 13.7 - 16.5 gm/dL [facility] Hematocrit 35.1(L) 40.5 - 48.5 % [facility] Mean Cell Volume 90.5 82.9 - 93.1 fL [facility] Mean Cell Hemoglobin 30.7 27.5 - 32.1 pg [facility] Mean Cell Hemoglobin Concentration 33.9 32.0 - 35.7 gm/dL [facility] Platelet 144(L) 145 - 357 x10(3)/mc L [facility] RDW Standard Deviation 42.1 36.0 - 45.0 [facility] RDW coefficient of variation 12.7 11.4 - 13.8 % [facility] Mean Platelet Volume 9.4 7.6 - 12.9 [facility] NRBC% auto 0.0 % [facility] NRBC Absolute 0.000 0.000 - 0.000 x10(3)/mc L [facility] Blood 04/23/2021 1:33 AM EDT 04/23/2021 1:36 AM EDT Narrative Resulting Agency Comment Spec In Lab David Hess MD HEMATOLOGY ORDERABLE S [facility] [place] [address] * (ABNORMAL) Basic Metabolic Panel (non-fasting) (04/23/2021 1:33 AM EDT) [facility] Glucose 184 65 - 199 mg/dL [facility] Comment:Diabetes: >=200 mg/d L plus symptoms Blood Urea Nitrogen 9(L) 10 - 20 mg/dL [facility] Creatinine 0.74(L) 0.80 - 1.50 mg/dL [facility] Sodium 141 135 - 145 mmol/L [facility] Potassium 3.8 3.5 - 5.0 mmol/L [facility] Comment: Please note: ??Patients with WBC >100,000 may have falsely elevated Potassium levels. ??For accurate Potassium quantification in these patients send serum separator tube (gold top) for subsequent determinations. ??Contact the Clinical Chemistry Laboratory if there are any questions. Chloride 107 98 - 107 mmol/L [facility] Carbon Dioxide 27 22 - 31 mmol/L [facility] Anion Gap 7 5 - 15 mmol/L [facility] Calcium 8.5 8.5 - 10.5 mg/dL [facility] Est Glomerular Filtration Rate 96 >=60 mL/min/1. 73 m?? [facility] Comment: This patient? s estimated [...] Calvin Garsia III, MD CHEMISTRY ORDERAB LES [facility] [address] * (ABNORMAL) POCT Glucose (04/22/2021 9:22 PM EDT) Glucose, POC 239(H) 65 - 199 mg/dL [facility] Comment: Supplemental ranges: <140 mg/dL before meals <180 mg/dL all other times of the day Blood 04/22/2021 9:22 PM EDT 04/22/2021 9:22 PM EDT Calvin Garsia III, MD POINT OF CARE JORGE T ORDERABLES [facility] [place] [address] * (ABNORMAL) POCT Glucose (04/22/2021 4:47 PM EDT) Glucose, POC 210(H) 65 - 199 mg/dL [facility] Comment: Supplemental ranges: <140 mg/dL before meals <180 mg/dL all other times of the day Blood 04/22/2021 4:47 PM EDT 04/22/2021 4:47 PM EDT Calvin Garsia III, MD POINT OF CARE JORGE T ORDERABLES Performing Organization Address City/[facility]/ZIP Co de Phone Number [facility] [place] [address] * POCT Glucose (04/22/2021 2:28 PM EDT) Glucose, POC 144 65 - 199 mg/dL [facility] Comment: Supplemental ranges: <140 mg/dL before meals <180 mg/dL all other times of the day Blood 04/22/2021 2:28 PM EDT 04/22/2021 2:28 PM EDT Calvin Garsia III, MD POINT OF CARE JORGE T ORDERABLES [facility] [place] [address] * POCT Glucose (04/22/2021 9:16 AM EDT) Glucose, POC 110 65 - 199 mg/dL [facility] Comment: Supplemental ranges: <140 mg/dL before meals <180 mg/dL all other times of the day Blood 04/22/2021 9:16 AM EDT 04/22/2021 9:16 AM EDT Calvin Garsia III, MD POINT OF CARE JORGE T ORDERABLES [facility] [place] [address] documented in this encounter Visit Diagnoses Diagnosis Postprocedural male urethral stricture Postoperative urethral stricture documented in this encounter Admitting Diagnoses Diagnosis Postprocedural [...] Given 04/22/2021 5:01 PM EDT 2 Units oxyCODONE (Roxicodone) tablet 10-15 mg 10-15 mg, [...] CONTINUOUS, Starting on Thu04/22/21 at 1500, Until Tu04/23/21 at 0732 New Bag 04/22/2021 3:00 PM [...] Routine 1553 (Given - Provider: Chantelle Vega RN)2028 (Given - Provider: Boby Chowdary RN) 0450 (Given - Provider: Boby Chowdary RN)0815 (Given [...] 0815 (Given - Provider: Kathryn Argueta RN) pregabalin (Lyrica) capsule 300 mg 300 mg, [...] Patient/family refused) 0815 (Given - Provider: Kathryn Argueta, [place]) sodium chloride 0.9 % (flush) (BD PosiFlush Normal Saline 0.9) flush 5 mL 5 mL, Intravenous, 2 TIMES DAILY, First dose on Thu04/22/21 at 2100, Until Discontinued, Recovery (Recovery-Hospital Unit), Routine 2030 (Given - Provider: Boby Chowdary RN) 0815 (Given - Provider: Kathryn Argueta, [place]) venlafaxine XR (Effexor-XR) capsule 150 mg 150 [...] 0732 1500 (New Bag - Provider: Zaki Vega, [place]) PRN Medication Order 04/21/2021 04/22/2021 04/23/2021 bisacodyL (Dulcolax) suppository 10 mg 10 mg, [...] 60 minutes, give additional 5mg, Routine 2030 (See Alternative - Provider: Boby Chowdary RN) [...] Routine documented in this encounter Care Teams Retail Reset Merchandiser Relationship Specialty Start Date End Date Pillo Rabago PA PCP - General General Internal Medicine 08/05/19 documented as of this encounter
--- OUTSIDE RECORDS SUMMARY | 2024-07-01 10:26 | XMS_ITS | Encounter Summary ---
Author Organization [facility] Address [address] [place] [address] Care Team Providers Care Base Remover Name Role Phone Unknown, Provider Primary Care Provider Pillo Rabago RPA Primary Care Provider [phone] Encounter Details Date Type Department Care Team (Late st Contact Info) Description 04/17/2020 Lab Requisition [facility] Pathology & Laboratory Medicine - [address] [address] Outr Resulting Lab, Provider Social History Tobacco Use Types Packs/Day Years Used Date Smoking Tobacco: Never Assessed Sex and Gender Information Value Date Recorded Sex Assigned at Male 04/10/2021 5:57 EDT Gender Identity Male 04/10/2021 5:57 EDT Sexual Orientation Straight 04/10/2021 5: 57 EDT documented as of this encounter Plan of Treatment Not on file documented as of this encounter Procedures Procedure Name Priority Date/Time Associated Diagnosis Comments TESTOSTERONE, TOTAL AND FREE Routine 04/17/2020 7:26 EDT documented in this encounter Results * (ABNORMAL) TESTOSTERONE, TOTAL AND FREE (04/17/2020 7:26 EDT) Testosterone 60(L) 229 - 902 ng/dL 04/18/2020 9:56 EDT [facility] Comment: The results of this assay can be falsley elevated due to the consumption of Biotin. Sex Hormone Bnd Glob 22.1 21.6 - 113.1 nmol/L 04/18/2020 9:56 EDT [facility] Comment: The results of this assay can be falsely lowered due to the consumption of Biotin. Free Testosterone 1.4(L) 3.3 - 11.6 ng/dL 04/18/2020 9:56 EDT [facility] Blood VENOUS BLOOD / Unknown 04/17/2020 7:26 EDT 04/17/2020 21:54 EDT Narrative [facility] - 04/18/2020 9:56 EDT This test is not recommended in patients with plasma protein abnormalities. Provider Outr Resulting Lab CHEMISTRY & BLOOD GAS ORDERABLES [facility] [address] [place] [address] documented in this encounter Visit Diagnoses Not on filedocumented in this encounter Care Teams Base Remover Relationship Specialty Start Date End Date Unknown, Provider, PCP - General 05/13/18 11/25/21 Pillo Rabago, JAYME [address] [place] [id number] PCP - General Family Medicine - Primary Care 11/26/21 documented as of this encounter
--- OUTSIDE RECORDS SUMMARY | 2024-07-01 10:26 | XMS_ITS | Clinical Summary ---
Author Organization [facility] Address [address] [place] [address] Care Team Providers Care Interlibrary Loan Services Librarian Name Role Phone Pillo Rabago [facility] Primary Care Provider [phone] Medications Medication Sig Dispensed Refills Start Date End Date Status metFORMIN (GLUCOPHAGE) 500 mg tablet Take 500 mg by mouth 2 times daily with breakfast and dinner. Active insulin glargine (LANTUS SOLOSTAR/SEMGLEE) 100 unit/mL (3 mL) injection pen Inject 40 Units into the skin 2 times daily. Active insulin lispro (HUMALOG) 100 unit/mL vial Inject into the skin 3 times daily before meals. Pt uses a sliding scale Active omeprazole (PRILOSEC) 20 mg capsule Take by mouth daily. Active SUCRALFATE ORAL Take by mouth. Activ e pregabalin (LYRICA ORAL) Take by mouth. Active Social History Tobacco Use Types Packs/Day Years Used Date Smoking Tobacco: Never Assessed Interpersonal Safety Answer Date Record ed Physically Hurt Never 05/07/2020 Verbally Threaten Not on file 05/07/2020 Sex and Gender Information Value Date Recorded Sex Assigned at Male 04/10/2021 5:57 EDT Gender Identity Male 04/10/2021 5:57 EDT Sexual Orientation Straight 04/10/2021 5: 57 EDT Plan of Treatment Health Maintenance Due Date Last Done Comments Hepatitis C Screen 1955 RSV Immunization ( o r 60+ Years) (1 - 1-dose 60+ series) 2014 Fall Risk Screening 2019 COVID-19 Vaccine (2022-24 season) 2023 Care Teams Interlibrary Loan Services Librarian Relationship Specialty Start Date End Date Pillo Rabago RPA [address] [facility] [address] [place] [address] PCP - General Family Medicine - Primary Care 11/26/21
--- OUTSIDE RECORDS SUMMARY | 2024-07-01 10:26 | XMS_ITS | Encounter Summary ---
Author Organization [facility] Address [address] [place] [address] Care Team Providers Care Pbx Supervisor Name Role Phone Unknown, Provider Primary Care Provider [phone] Pillo Rabago RPA Primary Care Provider [phone] Encounter Details Date Type Department Care Team (Late st Contact Info) Description 08/13/2019 Lab Requisition [facility] Pathology & Laboratory Medicine - [address] [address] Unknown, Provider, Social History Tobacco Use Types Packs/Day Years [...] Diagnosis Comments TESTOSTERONE, TOTAL AND FREE Routine 08/12/2019 6:53 EST documented in this encounter Results * (ABNORMAL) TESTOSTERONE, TOTAL AND FREE (08/12/2019 6:53 EST) Testosterone 480 229 - 902 ng/dL 08/15/2019 12:36 EST [facility] Comment: The results of this assay can be falsley elevated due to the consumption of Biotin. Sex Hormone Bnd Glob 16.8(L) 21.6 - 113.1 nmol/L 08/15/2019 12:36 EST [facility] Comment: The results of this assay can be falsely lowered due to the consumption of Biotin. Free Testosterone 13.8(H) 3.3 - 11.6 ng/dL 08/15/2019 12:36 EST [facility] Blood VENOUS BLOOD / Unknown 08/12/2019 6:53 EST 08/13/2019 14:34 EST Provider Unknown CHEMISTRY & BLOOD GA S ORDERABLES Performing Organization Address City/State/[facility] Co de Phone Number [facility] [address] [place] [address] documented in this encounter Visit Diagnoses Not on filedocumented in this encounter Care Teams Pbx Supervisor Relationship Specialty Start Date End Date Unknown, Provider, PCP - General 05/13/18 11/25/21 Pillo Rabago, [facility] [address] [place] [id number] PCP - General Family Medicine - Primary Care 11/26/21 documented as of this encounter
--- OUTSIDE RECORDS SUMMARY | 2024-07-01 10:26 | XMS_ITS | Encounter Summary ---
Author Organization [facility] Address [address] [place] [address] Care Team Providers Care Route Delivery Service Driver Name Role Phone Unknown, Provider Primary Care Provider Encounter Details Date Type Department Care Team (Late st Contact Info) Description 09/06/2021 Orders Only [facility] Radiology - [address] [address] Jayme Méndez MD [address] [facility] [place] [id number] Social History Tobacco Use Types Packs/Day Years [...] on filedocumented in this encounter Care Teams Route Delivery Service Driver Relationship Specialty Start Date End Date Unknown, Provider, PCP - General 05/13/18 11/25/21 documented as of this encounter
--- OUTSIDE RECORDS SUMMARY | 2024-07-01 10:26 | XMS_ITS | Referral Summary ---
Author Organization [facility] Address [address] [place] [address] Care Team Providers Care Merchant Tailor Name Role Phone Hima Plilo Shyam [facility] Primary Care Provider [phone] Medications Medication Sig Dispensed Refills Start Date [...] 04/10/2021 5: 57 EDT Plan of Treatment Not on file Care Teams Merchant Tailor Relationship Specialty Start Date End Date Pillo Rabago RPA [address] [facility] [address] [place] [address] PCP - General Family Medicine - Primary Care 11/26/21
--- OUTSIDE RECORDS SUMMARY | 2024-07-01 10:26 | XMS_ITS | Encounter Summary ---
Author Organization [facility] Address [address] [place] [address] Care Team Providers Care First Aid Instructor Name Role Phone Unknown, Provider Primary Care Provider [phone] Encounter Details Date Type Department Care Team (Late st Contact Info) Description 05/13/2018 Results Only [facility] [phone] Anatoliy Sky MD [address] [place] [phone] Social History Tobacco Use Types Packs/Day Years [...] Procedure Name Priority Date/Time Associated Diagnosis Comments SURGICAL PATHOLOGY Routine 05/13/2018 22 :51 EDT documented in this encounter Results * SURGICAL PATHOLOGY (05/13/2018 22:51 EDT) Pathology Report: SURGICAL PATHOLOGY REPORT Reports generated via electronic interface contain original data; however they are lacking the format of the original report. Caution should be taken when reading/interpreting unformatted reports. Name: ? TOPHER MOSLEY ? Accession #: ? [id number] ? : ? 1955 (Age: 62) ??M ? Collect Date: ? 05/13/2018 ? Location: ? [facility] ? Receive Date: ? 05/13/2018 ? Provider: ANATOLIY SKY II, MD Copy to: ZACHARIAH KAVITA RPA ? Final Pathologic Diagnosis: A. ESOPHAGUS, DISTAL, BIOPSY: - Erosive esophagitis with ulceration and underlying granulation tissue. - Immunohistochemical stains for cytomegalovirus and herpes simplex virus is negative. - Special stain PAS for fungal forms is negative. - See comment. B. STOMACH, ANTRUM, BIOPSY: - Reactive antral mucosa with abundant reactive/reparative changes in a background of chemical gastropathy. - Immunohistochemical stain for Helicobacter pylori is negative. C. SMALL INTESTINE, DUODENUM, BIOPSY: - Small bowel mucosa with normal villous architecture. - Patchy areas of non-specific increase in intraepithelial lymphocytes. D. COLON, TRANSVERSE, POLYPECTOMY: - Tubular adenoma. E. COLON, PROXIMAL TRANSVERSE, POLYPECTOMY: - Benign colonic mucosa with prominent lymphoid aggregate. - Additional levels are performed and examined. F. RECTUM, DISTAL, POLYPECTOMY: - Multiple fragments of hyperplastic polyps. Comment: ? The findings in the esophagus (Part A) are most likely due to reflux esophagitis. Clinical correlation necessary. ? Cost Clerk slides of this case were reviewed at intradepartmental consultation conference. ? Immunoperoxidase staining was performed on this case to further characterize the lesion. ?? ANTIBODY(CLONE)(BLOCK) :RESULT CMV (DDG9/CCH2, [place]) (Block A): Negative for organisms. ?? Herpes I (polyclonal, [employer]) (Block A): Negative for organisms. ? H. pylori (Rabbit Monoclonal (SP48), [place]) (Block B): Negative for organisms. ? NOTE: ??One or more of the reagents used in immunoperoxidase testing in this case may not have been cleared or approved by the U.S. Food and Drug Administration (FDA). ??The FDA has determined that such clearance or approval is not necessary. ??These tests are used for clinical purposes. ??They should not be regarded as investigational or for research. ??These reagents' performance characteristics have been determined by the [facility] and/or by the referring laboratory. ??The positive and negative controls worked appropriately. ??If immunoperoxidase staining has been performed on alcohol fixed cytology specimens, which has not been fully validated, the assays should be interpreted with caution and correlated with clinical data. ??This laboratory is certified under the Clinical Laboratory Improvement Amendments of 1988 (CLIA-88) as qualified to perform high complexity clinical laboratory testing. ? Document reviewed and electronically signed by: JAYLON GONZALEZ MD Report ??Date: 05/20/2018 19:00 By the signature above, the attending physician certifies that he/she has personally conducted a gross and/or microscopic examination of the described specimens and rendered or confirmed the above diagnosis. Specimen(s) Received: A. ??Distal esophagus x2 B. ??Antrum x3 C. ??Duodenum D. ??Transverse colon polyp E. ??Polyp, proximal transverse F. ??Distal rectal polyps Clinical History: Dysphagia, constipation, narrow stools, hx polyps, erosive esophagitis, erosive gastritis, polyps Gross Description: A. ?Received in formalin labelled with proper patient identification (initials N, H) and distal esophagus are two solis-white tissues (0.3 x 0.2 x 0.1 cm and 0.4 x 0.2 x 0.1 cm). Submitted in toto A1. B. ?Received in formalin labelled with proper patient identification (initials N, H) and antrum are three solis-pink tissues (averaging 0.2 x 0.2 x 0.1 cm). Submitted in toto in B1. C. ?Received in formalin labelled with proper patient identification (initials N, H) and duodenum is a solis tissue (0.3 x 0.2 x 0.1 cm). Submitted in toto in C1. D. ?Received in formalin labelled with proper patient identification (initials N, H) and transverse colon polyp is a solis tissue (0.3 x 0.2 x 0.1 cm). Submitted in toto in D1. E. ?Received in formalin labelled with proper patient identification (initials N, H) and proximal transverse polyp are three solis-pink tissue fragments (0.2 x 0.1 x 0.1 cm to 0.4 x 0.3 x 0.1 cm). Submitted in toto in E1. F. ?Received in formalin labelled with proper patient identification (initials N, H) and distal rectal polyps are three solis-white tissues (averaging 0.2 x 0.2 x 0.1 cm). Submitted in toto in F1. AMANUEL Duong ([facility]) 05/14/2018 7:46 AM End of Report [facility] 05/13/2018 22:5 1 EDT 05/13/2018 22:51 EDT Anatoliy Sky MD PATHOLOGY ORDERABLES [facility] [address] [place] [address] documented in this encounter Visit Diagnoses Not on filedocumented in this encounter Care Teams First Aid Instructor Relationship Specialty Start Date End Date Unknown, Provider, PCP - General 05/13/18 11/25/21 documented as of this encounter
--- OUTSIDE RECORDS SUMMARY | 2024-07-01 10:26 | XMS_ITS | Encounter Summary ---
Author Organization [facility] Address [address] [place] [address] Care Team Providers Care Matrix Worker Name Role Phone Unknown, Provider Primary Care Provider Reason for Visit * Reason Onset Date Comments Appointment Related 10/31/2021 Encounter Details Date Type Department Care Team (Late st Contact Info) Description 10/31/2021 Telephone [facility] Endocrinology - [facility] [address] [place] [address] Norma Huang MD [address] [facility] [address] [place] [address] Appointment Related Social History Tobacco Use Types Packs/Day Years Used Date Smoking Tobacco: Never Assessed Interpersonal Safety Answer Date Record ed Physically Hurt Never 05/07/2020 Verbally Threaten Not on file 05/07/2020 Sex and Gender Information Value Date Recorded Sex Assigned at Male 04/10/2021 5:57 EDT Gender Identity Male 04/10/2021 5:57 EDT Sexual Orientation Straight 04/10/2021 5: 57 EDT documented as of this encounter Miscellaneous Notes * Telephone Encounter - Lynette Agosto MA - 10/31/2021 1220 EST E faxed message from Dr. Huang and progress note 09/04/2021 per request to [phone] * Telephone Encounter - Norma Huang - 10/31/2021 1138 EST Hi I have not been able to get in touch with his urologist Dr Hernandez. I was wondering if you could fax my last note to his office with an attached note to Dr Hernandez Urologist at [facility]: Dear Dr Hernandez, I have seen your patient in the [facility] endocrinology clinic and see the attached note. I have not been able to get in direct contact with you to discuss his care. He is symptomatic of his hypogonadismand his testosterone is quite low. I am getting an MRI head to complete workup as well as other labs to complete secondary workup. Mr Mosley would like to try going back on testosterone therapy. I have looked in the literature onthe risks and benefits of testosterone therapy with history of prostate cancer with mixed results. I do not see advantage of starting alternative therapies at this time. I was wondering if you had any concerns on restarting Mr Mosley back on testosterone therapy with his medical history. You can email me at [email or web address] or page me at [phone] through [employer] I appreciate your opinion and expertise, Norma Huang Endocrinology Fellow PGY-4 Pager # [phone] documented in this encounter Plan of Treatment Not on file documented as of this encounter Visit Diagnoses Not on filedocumented in this encounter Care Teams Matrix Worker Relationship Specialty Start Date End Date Unknown, Provider, PCP - General 05/13/18 11/25/21 documented as of this encounter
--- OUTSIDE RECORDS SUMMARY | 2024-07-01 10:26 | XMS_ITS | Continuity of Care Document ---
Author Organization [facility], [facility] Address [address] [place] [address] Assessment No assessment recorded. Plan of Treatment Reminders Order Date Submit Date Provider Last Modified By Organization Details Last Modified Time Details Appointments Follow Up 30 2023 08:30A M Not available Not available Not available Medicare Annual Wellness 40 2024 10:00A M Not available Not available Not available Lab hemoglobi n A1C, fingersti ck 2023 024 [email or web address] [address] [facility], [address], [place], [address], 04/01/2024 08:02:32 HbA1c (hemoglob in A1c), blood 2023 024 [facility], [address], [place], [address], 06/27/2024 08:37:01 CMP, serum or plasma 2023 024 [facility], [address], [place], [address], 07/01/2024 09:00:03 lipid panel, serum 2023 024 [facility], [address] [place], [address], 06/27/2024 08:37:01 microalbu min, urine 2023 024 [facility], [address], [place], [address], 06/27/2024 08:37:01 Referral urologist referral - prostate ca followed with observati on with chronic obstructi ve urinary symptoms s/p urethropl asty for urethral stricture . He would like referral back to urology for followup of issues. 2023 GASPER Hernandez MD, [address] [place] [address], [place], [address], 06/22/2024 04:34:36 Procedures None recorded. Surgeries None recorded. Imaging None recorded. Medication Orders Ozempic 0.25 mg or 0.5 mg (2 mg/1.5 mL) subcutane ous pen injector 2023 [facility], [address] [facility], [address], [place], [address], 07/01/2024 08:19:11 Patient TargetsNo targets recorded. Patient Instructions Encounter Date Encounter Id Patient Instructions Last Modified By Organization Details Last Modified Time 04/01/2024 [id number] Landen - we will try to ozempic covered. A script was sent to [facility]. I will place referral to Dr. Hernandez. We will get fasting blood work prior to followup in 3 month. I will send order to [facility] lab. [email or web address] Not available 04/01/2024 07:56:50 Reason for Referral General Surgeon Referral for Screening for malignant neoplasm of colon screening colonoscopy. Adenomatous polyp on last colonoscopy in 2018. [facility]. Also consider upper endoscopy for history of erosive gastropathy and 2018 EGD. Manage on daily PPI Referring Physician: Family Blake Gonzalez, Encounter Date: 12/31/2023 Cannoneer Referral f or Type 2 diabetes mellitus without complication diabetic medical management/cgm initiation Referring Physician: Family Blake Gonzalez, Encounter Date: 12/31/2023 Urologist Referral for Malig nant tumor of prostate prostate ca followed with observation with chronic obstructive urinary symptoms s/p urethroplasty for urethral stricture. He would like referral back to urology for followup of issues. Referring Physician: Family Blake Gonzalez, Encounter Date: 04/01/2024 Results Created Date Observation Date Name Description Value Unit Range Abnormal Flag Note LastModifiedBy Organization Detail LastModifiedTime 04/01/20 24 04/01/2024 hemog lobin A1C, miguel a okeefe k hemoglobin A1C 8.1 % <5.7 Not Available [facility] [address], [place], [address], 04/01/2024 07:53:00 06/20/20 24 04/12/2021 imagi ng/di agnos tic resul t No observ ation record ed. Not Available 06/20 02:10:14 06/20/20 24 09/04/2019 XR, chest No observ ation record ed. Not Available 06/20 02:10:21 06/20/20 24 07/30/2019 CT, head or brain No observ ation record ed. Not Available 06/20 02:10:22 06/20/20 24 01/25/2019 LDCT, chest , for lung cance r scree francois No observ ation record ed. Not Available 06/20 02:10:26 06/20/20 24 04/21/2022 LDCT, chest , for lung cance r scree francois No observ ation record ed. Not Available 06/20 02:10:27 06/20/20 24 06/11/2023 LDCT, chest , for lung cance r scree francois No observ ation record ed. Not Available 06/20 02:10:28 06/20/20 24 04/21/2022 LDCT, chest , for lung cance r scree francois No observ ation record ed. Not Available 06/20 02:10:30 06/20/20 24 06/11/2023 LDCT, chest , for lung cance r scree francois No observ ation record ed. Not Available 06/20 02:10:31 06/20/20 24 03/29/2019 US, renal No observ ation record ed. Not Available 06/20 02:10:32 06/20/20 24 08/15/2020 MRI, pelvi s No observ ation record ed. Not Available 06/20 02:10:36 06/20/20 24 02/13/2021 imagi ng/di agnos tic resul t No observ ation record ed. Not Available 06/20 02:10:47 Result Notes None recorded. Problems Name Problem SNOMED Code Status Onset Date Resolution Date Notes Provider Name and Address Organization Details Recorded Time Malignan t tumor of prostate 857421159 Active 201903/05/20 22 - Comments only - Pillo Rabago RPA - continue s to followup with urology. Slowly progress ramez obstruct ramez urinary symptoms s/p urethrop lasty. Problem Code: C61; Problem Code Type: ICD-10; Not Available [facility] 3 04:49:46 Type 2 diabetes mellitus without complica tion 009191731 Active 201907/04/20 22 - Comments only - Pillo Rabago RPA - Doing very well on ozempic 0.5 mg weekly. He would like to lower lantus dose to 30 units twice daily which I think is reasonab le. Infreque nt need for short acting insulin. Problem Code: E11.9; Problem Code Type: ICD-10; Not Available [facility] 3 04:49:46 Testicul ar hypofunc tion 214364444 Active 201904/17/20 21 - Comments only - Pillo Rabago RPA - Recent consult with endocrin ology at [facility]. They recommen ded no testoste dora suppleme ntation given slight chance of prostate cancer. They plan on forwardi ng the note to this office. Problem Code: E29.1; Problem Code Type: ICD-10; Not Available [facility] 3 04:49:46 Pure hypergly ceridemi a 524111806 Active 201903/05/20 22 - Comments only - Pillo Rabago RPA - continue s on statin Problem Code: E78.1; Problem Code Type: ICD-10; Not Available [facility] 3 04:49:46 Obesity 388720343 Active 2019 Problem Code: E66.9; Problem Code Type: ICD-10; Not Available [facility] 3 04:49:46 Insomnia 985569877 Active 2019 Problem Code: G47.00; Problem Code Type: ICD-10; Not Available [facility] 3 04:49:46 Chronic obstruct ramez pulmonar y disease 89066319 Active 201903/05/20 22 - Comments only - Pillo Rabago RPA - smoking history. Asymptom atic. Routine low dose ct scans Problem Code: J44.9; Problem Code Type: ICD-10; [address], [place], [address] , [facility] 4 16:00:03 Liver function tests outside referenc e range 261169467 Active 201911/04/19 22 - Comments only - Pillo Rabago RPA - fatty liver on pior imaging. Problem Code: R94.5; Problem Code Type: ICD-10; [address], [place], [address] , [facility] 4 16:00:49 Polyneur opathy 50316653 Active 201901/03/20 23 - Comments only - Pillo Rabago RPA - Doing well on the Lyrica 200 mg twice daily dosing. He has noted improved balance since the lower dose was started. Problem Code: G62.9; Problem Code Type: ICD-10; Not Available [facility] 3 04:49:47 Kidney stone 88286279 Active 201908/10/20 20 - Comments only - Pillo Rabago RPA - history of Problem Code: N20.0; Problem Code Type: ICD-10; Not Available [facility] 3 04:49:47 Mood disorder 52903410 Active 2019 Problem Code: F39; Problem Code Type: ICD-10; [address], [place], [address] , [facility] 4 16:01:04 Obstruct ramez sleep apnea syndrome 51104486 Active 202003/05/20 22 - Comments only - Pillo Rabago RPA - stable on bipap. Problem Code: G47.33; Problem Code Type: ICD-10; Not Available [facility] 3 04:49:48 Gastroes ophageal reflux disease without esophagi tis 678813548 Active 2021 erosive esophagi tis/jai ritis 2018 egd Problem Code: K21.9; Problem Code Type: ICD-10; [address], [place], [address] , [facility] 4 16:00:30 Otitis media of left ear 72653589587 63489 Completed 202101/02/2023 Problem Code: H66.92; Problem Code Type: ICD-10; Not Available [facility] 3 04:49:51 Viral screenin g Completed 202001/02/2023 Problem Code: Z11.59; Problem Code Type: ICD-10; Not Available [facility] 3 04:49:51 Acute upper respirat ory infectio n 42450796 Completed 202101/02/2023 Problem Code: J06.9; Problem Code Type: ICD-10; Not Available [facility] 3 04:49:51 Foot pain 26460381 Completed 202101/02/2023 Problem Code: M79.673; Problem Code Type: ICD-10; Not Available [facility] 3 04:49:52 Prostate specific antigen above referenc e range 515469035 Completed 202105/05/2023 Problem Code: R97.20; Problem Code Type: ICD-10; Not Available [facility] 3 04:49:52 Notes:*Problem Name: Urethra l stricture *Problem Status: active *Comments: 04/17/2021 - Comments only - Pillo Rabago RPA - Having urethroplasty at [facility] next week. *Problem Code: N99.89 *Problem Code Type: ICD-10 *Note Date: 08/01/2020 Problem Notes None recorded. Medical Equipment None Reported. Allergies Allergen ID Allergen Name Allergen Category Reaction Reaction Severity Criticality Documentation Date Start Date Code Code System Note Provider Name and Address Organization Details Recorded Time 61855 Keflex medicatio n rash Not available Not available 07/01/2024 7 RxNorm summe r 2022 JAM LEZAMA RN null, [place] - [facility] 08:15:20 Medications Name Sig Start Date Stop Date Status Note LastModified by Organization Details LastModified Time Prescript ion - Renewal 07/01 completed Refill request Not Available Not Available Not Available metformin 500 mg tablet Take 1 tablet by mouth twice a day active Not Available Not Available No t Available venlafaxi ne 75 mg tablet Take 1 by mouth twice daily 2019 active Not Available Not Available Not Avai lable Effexor XR 75 mg capsule,e xtended release Take 1 capsule by mouth once a day 02/27 completed Not Available Not Available Not Available cephalexi n 250 mg capsule TAKE 1 CAPSULE BY MOUTH 4 TIMES A DAY UNTIL GONE 04/01 completed Not Available Not Available Not Available sucralfat e 1 gram tablet TAKE 1 TABLET BY MOUTH BEFORE MEALS AND AT BEDTIME NEEDED active Not Available Not Available No t Available AndroGel 1 % (25 mg/2.5 gram) transderm al gel packet apply 1 pack to torso daily wash hands after applicat ion 2019 active Not Available Not Available Not Avai lable venlafaxi ne ER 150 mg capsule,e xtended release 24 hr Take 1 capsule by mouth once a day active Not Available Not Available No t Available amoxicill in 875 mg tablet Take 1 tablet by mouth twice a day 10/10 completed Not Available Not Available Not Available tamsulosi n 0.4 mg capsule Take 2 capsules every day by oral route. active Not Available Not Available No t Available Humalog U-100 Insulin 100 unit/mL subcutane ous solution per mealtime sliding scale with max dose of 12 units 2019 active Not Available Not Available Not Avai lable nystatin 100,000 unit/gram topical cream Apply to skin twice a day 02/27 completed Not Available Not Available Not Available omeprazol e 20 mg capsule,d elayed release Take 1 capsule by mouth once a day active Not Available Not Available No t Available lorazepam 1 mg tablet Take 1 tab by mouth daily as needed 08/27 completed Not Available Not Available Not Available sertralin e 50 mg tablet Take 1 tab by mouth daily 10/31 completed Not Available Not Available Not Available amoxicill in 875 mg-potass ium clavulana te 125 mg tablet TAKE 1 TABLET BY MOUTH EVERY 12 HOURS UNTIL GONE. START 2 DAYS BEFORE DENTAL APPOINTM ENT 07/01 completed Not Available Not Available Not Available aripipraz ole 15 mg tablet TAKE 1 TABLET BY MOUTH DAILY AT NIGHT 11/04 completed Not Available Not Available Not Available Abilify 5 mg tablet Take 1 tab by mouth at night 2020 active Not Available Not Available Not Avai lable rosuvasta tin 5 mg tablet Take 1 tablet by mouth every day active Not Available Not Available No t Available pregabali n 300 mg capsule Take 1 capsule by mouth twice a day active Not Available Not Available No t Available Lyrica 150 mg capsule Take 1 cap by mouth twice daily 2019 active per patient Not Available Not Available Not Available Lyrica 200 mg capsule Take 1 tablet by mouth twice a day 02/27 completed Not Available Not Available Not Available chlorhexi dine gluconate 0.12 % mouthwash RINSE MOUTH TWICE A DAY WITH 15 MILLILIT ERS SWISH FOR 1 MINUTE THEN SPIT OUT active Not Available Not Available No t Available BD Ultra-Fin e Short Pen Needle 31 gauge x 5/16 USE WITH HUMALOG KWIKPEN 3 TIMES DAILY 12/28 completed Not Available Not Available Not Available Lantus Solostar U-100 Insulin 100 unit/mL (3 mL) subcutane ous pen INJECT SUBCUTAN EOUSLY 30 UNITS TWICE DAILY active Not Available Not Available No t Available Humalog KwikPen (U-100) Insulin 100 unit/mL subcutane ous Inject subcutan eously as directed PER SLIDING SCALE max dose 14 units active Not Available Not Available No t Available Accu-Chek Joan Plus test strips Use 1 strip via meter three times a day TEST 3 TIMES DAILY active Not Available Not Available No t Available Victoza 2-Andrew 0.6 mg/0.1 mL (18 mg/3 mL) subcutane ous pen injector Inject 1.2 mg subcutan eously once a day 07/29 completed Not Available Not Available Not Available Trulicity 1.5 mg/0.5 mL subcutane ous pen injector Inject 1.5 mg subcutan eously once a week 12/30 completed Not Available Not Available Not Available Trulicity 0.75 mg/0.5 mL subcutane ous pen injector Inject 0.75 mg subcutan eously once a week 02/27 completed Not Available Not Available Not Available Ozempic 0.25 mg or 0.5 mg (2 mg/1.5 mL) subcutane ous pen injector Inject 0.5 mg subcutan eously once a week 07/01 completed Not Available Not Available Not Available Unifine Pentips 32 gauge x 1/4 needle Use 1 needle subcutan eously twice daily 2023 active Not Available Not Available Not Avai lable Ozempic 1 mg/dose (4 mg/3 mL) subcutane ous pen injector Inject 1 mg subcutan eously once a week 12/29 completed Not Available Not Available Not Available Mounjaro 2.5 mg/0.5 mL subcutane ous pen injector Inject 0.5 mL every week by subcutan eous route in the morning for 28 days. 07/01 completed 06/30/24 last dose about a month ago per patient Not Available Not Available Not Available Vitals Date Recorded Body height Body mass index (BMI) Body weight Body temperature Oxygen saturation Oxygen saturation in Arterial blood by Pulse oximetry Heart rate Systolic blood pressure Diastolic blood pressure Provider Name and Address Organization Details Last Updated DateTime 4 178.31 cm 36 kg/m2 458360 g 98.3 [degF] 98 % 98 % 96 /min 138 mm[Hg] 78 mm[Hg] JONEL DIETRICH MA [facility] 07:33:10 Social History Question Answer Notes LastModified by Organizat ion Details LastModified Time Tobacco Smoking Status Former Smoker NEHA NORRIS RN null, [facility] 12/31/2023 14:35:14 When Did You Quit Smoking? 6-10yearssin celastcigare tte Information not available 12/31/2023 What Was The Date Of Your Most Recent Tobacco Screening? 07/01/2024 rbarter Information not available 07/01/2024 Do You Or Have You Ever Used Any Other Forms Of Tobacco Or Nicotine? No Information not available 12/31/2023 Sex: Male Functional Status None recorded. Mental Status None recorded. Family History Nothing Reported Notes:*Problem: family hx of diabetes, HTN Medical History No medical history recorded. Immunizations Vaccine Type Date Status Provider Name and Address Organization Details Recorded Time pneumococcal, unspecified formulation 08/19/2019 completed Not Available [facility] 08/14/2023 05:38:39 Tdap 10/31/2020 completed Not Available [facility] 05:38:40 zoster live 10/08/2020 completed Not Available [facility] 08/14/2023 05:38:41 zoster live 07/23/2020 completed Not Available [facility] 08/14/2023 05:38:41 Influenza, high-dose, quadrivalent, PF 07/04/2022 completed Not Available [facility] 08/14/2023 05:38:41 COVID-19, mRNA, LNP-S, PF, 100 mcg/0.5mL dose or 50 mcg/0.25mL dose 12/18/2020 completed Not Available [facility] 08/14/2023 05:38:42 SARS-COV-2 (COVID-19) vaccine, UNSPECIFIED 01/14/2021 completed Not Available [facility] 08/14/2023 05:38:42 SARS-COV-2 (COVID-19) vaccine, UNSPECIFIED 09/04/2021 completed Not Available [facility] 08/14/2023 05:38:42 COVID-19, mRNA, LNP-S, bivalent, PF, 30 mcg/0.3 mL dose 07/04/2022 completed Not Available [facility] 08/14/20 05:38:43 pneumococcal polysaccharide PPV23 10/31/2020 completed Not Available [facility] 2022 05:38:43 influenza, unspecified formulation 07/23/2020 completed Not Available [facility] 08/14/2023 05:38:43 Influenza, high-dose, quadrivalent, PF 07/31/2023 completed Not Available [facility] 10/16/2023 05:31:38 COVID-19, mRNA, LNP-S, PF, alla-sucrose, 30 mcg/0.3 mL 07/31/2023 completed Not Available [facility] 10/16/2023 05:31:38 Past Encounters Encounter ID Performer Location Encounter Start Date Encounter Closed Date Diagnosis/Indication Diagnosis SNOMED-CT Code Diagnosis ICD10 Code [id number] PILLO RABAGO PA-C [address] [place] [address] 04/01/2024 07:23:55 04/01/2024 08:04:18 Type 2 diabetes mellitus without complication 746611797 E11.9 Obstructiv e sleep apnea syndrome 00316241 G47.33 Malignant tumor of prostate 416533935 C61 Mood disorder 27117736 F 39 Pure hyperglyceridemia 783019913 E78.1 Health Concerns Section Related Observation LastModified by Organization Detai ls LastModified Time None Recorded Concern Status LastModified by Organization Details LastModified Time None Recorded Payers Encounter Date Sequence Insurance Name Policy Number Policy Fritz Covered Member ID Fritz Member ID Guarantor Name 04/01/2024 1 [id number]IC[place]/A DVANTAGE - PPO) Topher Mosley [id number] Topher Mosley Notes Date Note Type Note Provider Name and Address Organization Details Recorded Time 04/01/2024 text/html HPI Notes: Landen is here for followup of diabetes, hyperlipidemia, htn. He is feeling ok. Continues to struggle to keep his blood sugars in control. He was unable to get Mounjaro due to availability. He has increased Lantus to 80 units daily. Using his short acting insulin as well. Otherwise he is feeling fine. He continues to use BiPAP for sleep apnea. This has been very helpful. [address], [place], [address], [facility]. 04/01/2024 12:45:02
--- OUTSIDE RECORDS SUMMARY | 2024-07-01 10:26 | XMS_ITS | Data Portability ---
Author Organization [place] - [facility], [facility] [place] [address] Assessment Encounter Date Assessment Date Assessment LastModified by Organization Details LastModified Time 12/31/2023 12/31/2023 His diabetes is poorly controlled by his history. He would benefit from a CGM. I recommend a therapeutic CGM is reasonable and necessary for my patient: 1. The patient has diabetes; 2. The patient is insulin-treated with: - Multiple (three or more) daily administrations of insulin; OR - A continuous subcutaneous insulin infusion (CSII) pump; 3. The patient's insulin treatment regimen requires frequent adjustments by patient on the basis of BGM or CGM testing results; 4. Within 6 months prior to ordering the CGM, the patient had an in-person visit with me, the treating practitioner, to evaluate their diabetes control and determine that the above criteria (1-3) have been met; 5. I plan to see patient every 6 months following initial prescription of the CGM to assess adherence to their CGM regimen & diabetes treatment plan In the meantime he will simplify his Lantus regimen by taking 75 units at night rather than split dosing. Continue with mealtime Humalog. We will try to get a GLP-1 covered. He has struggled getting good coverage for this medication class in the past. He is due for screening colonoscopy and upper endoscopy. Last in 2018. Adenomatous polyp in erosive gastritis/esophagi tis. saundra Not available 12/31/2023 15:35:04 07/01/2024 07/01/2024 He plans to get COVID and flu vaccines later this fall along with his saundra Not available 07/01/2024 09:30:25 Plan of Treatment Reminders Order Date Submit Date Provider Last Modified By Organization Details Last Modified Time Details Appointments Follow Up 30 2023 08:30A M Not available Not available Not available Medicare Annual Wellness 40 2024 10:00A M Not available Not available Not available Lab CMP, serum or plasma 2023 024 [facility] (Registration ), [address] [place] [address] [place], [address], 12/31/2023 19:36:26 HbA1c (hemoglob in A1c), blood [email or web address] [facility] (Registration ), [address] [place] [address] [place], [address], 01/07/2024 07:39:20 lipid panel, serum [email or web address] [facility] [address] [facility] (Registration ), [address] [place] [address] [place], [address], 01/07/2024 07:39:20 CBC 2023 024 [facility] (Registration ), [address] [place] [address] [place], [address], 12/31/2023 19:09:21 hemoglobi n A1C, fingersti ck 2023 024 [email or web address] 63 [facility], [address], [place], [address], 04/01/2024 08:02:32 HbA1c (hemoglob in A1c), blood 2023 024 [facility], [address] [place], [address], 06/27/2024 08:37:01 CMP, serum or plasma 2023 024 [facility], [address] [place], [address], 07/01/2024 09:00:03 lipid panel, serum 2023 024 [facility], [address], [place], [address], 06/27/2024 08:37:01 microalbu min, urine 2023 024 [facility], [address], [place], [address], 06/27/2024 08:37:01 lipid panel, serum 2023 024 [email or web address] 63 [facility], [address], [place], [address], 07/01/2024 09:17:34 HbA1c (hemoglob in A1c), blood 2023 024 [email or web address] 63 [facility] (Registration ), [address] [place] [address] [place], [address], 07/01/2024 09:17:34 CMP, serum or plasma [address] [facility] [address] [facility] (Registration ), [address] [place] [address] [place], [address], 07/01/2024 09:17:34 microalbu min, urine [address] [facility] [address] [facility] (Registration ), [address] [place] [address] [place], [address], 07/01/2024 09:17:34 Referral certified diabetes educator referral - diabetic medical managemen t/cgm initiatio n 2023 [email or web address], [address], [place], [address], 04/14/2024 07:40:34 general surgeon referral - screening colonosco py. Adenomato us polyp on last colonosco py in 2018. [facility]. Also consider upper endoscopy for history of erosive gastropat hy and 2018 EGD. Manage on daily PPI 2023 [email or web address] [facility], [address], [facility], [place], [address], 05/06/2024 10:20:18 urologist referral - prostate ca followed with observati on with chronic obstructi ve urinary symptoms s/p urethropl asty for urethral stricture . He would like referral back to urology for followup of issues. 2023 GASPER Hernandez MD, [address] [facility], [place], [address], 06/22/2024 04:34:36 Procedures None recorded. Surgeries None recorded. Imaging LDCT, chest, for lung cancer screening - annual low dose ct [address] [facility] [address] [facility], [address], [place], [address], 07/01/2024 10:00:00 Medication Orders Lantus Solostar U-100 Insulin 100 unit/mL (3 mL) subcutane ous pen 2023 024 [facility], [address] [place] [address], [facility] [address], [address], 12/31/2023 15:49:37 Humalog KwikPen (U-100) Insulin 100 unit/mL subcutane ous 2023 024 [facility], [address] [place] [address], [address], [place], [address], 12/31/2023 15:49:36 Ozempic 0.25 mg or 0.5 mg (2 mg/1.5 mL) subcutane ous pen injector 2023 024 [facility], [address] [place] [address], [address], [place], [address], 07/01/2024 08:19:11 Patient TargetsNo targets recorded. Patient Instructions Encounter Date Encounter Id Patient Instructions Last Modified By Organization Details Last Modified Time 12/31/2023 [id number] Landen - we will set you up to See Tameka, our clinical unit educator, to get a CGM and discuss medication and nutrition. Take all of lantus in evening - you can titrate up to 75 units. Take humalog approximately 15 minutes prior to each meal. saundra Not available 12/31/2023 14:53:34 04/01/2024 [id number] Landen - we will try to ozempic covered. A script was sent to [facility]. I will place referral to Dr. Hernandez. We will get fasting blood work prior to followup in 3 month. I will send order to [facility] lab. saundra Not available 04/01/2024 07:56:50 07/01/2024 [id number] I will send giannae r for low dose CT scan at [facility] radiology. Start humalog with at least 2 units with meals if blood sugar is any greater than 150. Continue with current dose of lantus. I will call you Thursday with results of blood work. saundra Not available 07/01/2024 08:56:13 Reason for Referral General Surgeon Referral for Screening for malignant neoplasm of colon screening colonoscopy. Adenomatous polyp on last colonoscopy in 2018. [facility]. Also consider upper endoscopy for history of erosive gastropathy and 2018 EGD. Manage on daily PPI Referring Physician: [facility], Encounter Date: 12/31/2023 Extractor And Wringer Operator Referral f or Type 2 diabetes mellitus without complication diabetic medical management/cgm initiation Referring Physician: [facility], Encounter Date: 12/31/2023 Urologist Referral for Malig nant tumor of prostate prostate ca followed with observation with chronic obstructive urinary symptoms s/p urethroplasty for urethral stricture. He would like referral back to urology for followup of issues. Referring Physician: [facility], Encounter Date: 04/01/2024 Results Created Date Observation Date Name Description Value Unit Range Abnormal Flag Note LastModifiedBy Organization Detail LastModifiedTime 12/31/19 24 12/31/2023 COMPL ETE BLOOD COUNT NO DIFF WBC 4.67 10_3/ uL 4.4-10 .8 normal Not Available [address] [place], [address] 12/31/2023 19:09:21 12/31/19 24 12/31/2023 COMPL ETE BLOOD COUNT NO DIFF RBC 4.66 10_6/ uL 4.36-5 .78 normal Not Available [address] [place], [address] 12/31/2023 19:09:21 12/31/19 24 12/31/2023 COMPL ETE BLOOD COUNT NO DIFF HGB 14.2 g/dL 13.5-1 7.5 normal Not Available [address] [place], [address] 12/31/2023 19:09:21 12/31/19 24 12/31/2023 COMPL ETE BLOOD COUNT NO DIFF HCT 41.7 % 40.0-5 0.0 normal Not Available [address] [place], [address] 12/31/2023 19:09:21 12/31/19 24 12/31/2023 COMPL ETE BLOOD COUNT NO DIFF MCV 90 fL 80-95 normal Not Available [address] [place], [address] 12/31/2023 19:09:21 12/31/19 24 12/31/2023 COMPL ETE BLOOD COUNT NO DIFF MCH 30.5 pg 27.0-3 3.0 normal Not Available [address] [place], [address] 12/31/2023 19:09:21 12/31/19 24 12/31/2023 COMPL ETE BLOOD COUNT NO DIFF MCHC 34.1 % 32.0-3 6.0 normal Not Available [address] [place], [address] 12/31/2023 19:09:21 12/31/19 24 12/31/2023 COMPL ETE BLOOD COUNT NO DIFF RDW 12.7 % 11.8-1 4.1 normal Not Available [address] [place], [address] 12/31/2023 19:09:21 12/31/19 24 12/31/2023 COMPL ETE BLOOD COUNT NO DIFF platelet count 227 10_3/ uL 130-40 0 normal Not Available [address] [place], [address] 12/31/2023 19:09:21 12/31/19 24 12/31/2023 COMPL ETE BLOOD COUNT NO DIFF MPV 9.9 fL 8.0-11 .0 normal Not Available [address] [place], [address] 12/31/2023 19:09:21 12/31/19 24 12/31/2023 HEMOG LOBIN A1C hemoglobin A1C 8.9 % <5.7 high Refer ence Range s <5.7 Ilda l 5.7-6 .4% Predi abete s 6.5% or great er Diagn ostic for diabe trung (if confi rmed) Refer ences : 1. Ameri can Diabe trung Assoc iatio n. Clas sific ation and Diagn osis of Diabe trung. Diabe trung Care 2019 Oct;4 2(Sup pleme nt 1):S1 3-s28 . Not Available [address] [place], [address] 12/31/2023 19:27:26 12/31/19 24 12/31/2023 COMPR EHENS DOYLE METAB OLIC PANEL calcium 9.0 mg/dL 8.5-10 .1 normal Not Available [address] [place], [address] 12/31/2023 19:36:26 12/31/19 24 12/31/2023 COMPR EHENS DOYLE METAB OLIC PANEL glucose 347 mg/dL 74-106 high Not Available Eleni blevins [address] [place], [address] 12/31/2023 19:36:26 12/31/19 24 12/31/2023 COMPR EHENS DOYLE METAB OLIC PANEL BUN 13 mg/dL 7-18 normal Not Available Eleni blevins [address] [place], [address] 12/31/2023 19:36:26 12/31/19 24 12/31/2023 COMPR EHENS DOYLE METAB OLIC PANEL creatinine 1.0 mg/dL 0.70-1 .30 normal Not Available [address] [place], [address] 12/31/2023 19:36:26 12/31/19 24 12/31/2023 COMPR EHENS DOYLE METAB OLIC PANEL estimated GFR 81.47 mL/min /1.73m 2 The eGFR is calcu lated from a serum creat inine using the CKD-E PI 2020 equat ion. Other varia bles requi red for the equat ion are gende r and age; this equat ion does not inclu de a race coeff icien t. This equat ion has simil ar overa ll perfo rmanc e to previ ous equat ions excep t value s may diffe r, in parti cular , in patie nts with highe r value s of eGFR and young er-ag ed adult s. Not Available [address] [place], [address] 12/31/2023 19:36:26 12/31/19 24 12/31/2023 COMPR EHENS DOYLE METAB OLIC PANEL total protein 6.9 g/dL 6.4-8. 2 normal Not Available [address] [place], [address] 12/31/2023 19:36:26 12/31/19 24 12/31/2023 COMPR EHENS DOYLE METAB OLIC PANEL albumin 3.7 g/dL 3.4-5. 0 normal Not Available [address] [place], [address] 12/31/2023 19:36:26 12/31/19 24 12/31/2023 COMPR EHENS DOYLE METAB OLIC PANEL bilirubin, total 0.3 mg/dL 0.2-1. 0 normal Not Available [address] [place], [address] 12/31/2023 19:36:26 12/31/19 24 12/31/2023 COMPR EHENS DOYLE METAB OLIC PANEL alk phos 101 U/L 46-116 normal Not Available [address] [place], [address] 12/31/2023 19:36:26 12/31/19 24 12/31/2023 COMPR EHENS DOYLE METAB OLIC PANEL sodium 141 mmol/ L 136-14 5 normal Not Available [address] [place], [address] 12/31/2023 19:36:26 12/31/19 24 12/31/2023 COMPR EHENS DOYLE METAB OLIC PANEL potassium 4.4 mmol/ L 3.5-5. 1 normal Not Available [address] [place], [address] 12/31/2023 19:36:26 12/31/19 24 12/31/2023 COMPR EHENS DOYLE METAB OLIC PANEL chloride 105 mmol/ L 98-107 normal Not Available [address] [place], [address] 12/31/2023 19:36:26 12/31/19 24 12/31/2023 COMPR EHENS DOYLE METAB OLIC PANEL CO2 24.6 mmol/ L 21.0-3 2.0 normal Not Available [address] [place], [address] 12/31/2023 19:36:26 12/31/19 24 12/31/2023 COMPR EHENS DOYLE METAB OLIC PANEL anion gap 11.4 mmol/ L 3-11 high Not Available [address] [place], [address] 12/31/2023 19:36:26 12/31/19 24 12/31/2023 COMPR EHENS DOYLE METAB OLIC PANEL AST 23 U/L 15-37 normal Not Available Eleni blevins [address] [place], [address] 12/31/2023 19:36:26 12/31/19 24 12/31/2023 COMPR EHENS DOYLE METAB OLIC PANEL ALT 46 U/L 16-63 normal Not Available Eleni blevins [address] [place], [address] 12/31/2023 19:36:26 12/31/19 24 12/31/2023 LIPID 2 cholesterol 155 mg/dL <200 Not Available [facility] [address] [place], [address] 12/31/2023 19:36:26 12/31/19 24 12/31/2023 LIPID 2 triglyceride 250 mg/dL <150 high Not Available [facility] [address] [place], [address] 12/31/2023 19:36:26 12/31/19 24 12/31/2023 LIPID 2 HDL cholesterol 33 mg/dL 40-60 low Not Available [facility] [address] [place], [address] 12/31/2023 19:36:26 12/31/19 24 12/31/2023 LIPID 2 calculated LDL 72 mg/dL <100 Natio nal Mary stero l Educa tion Progr am (NCEP -ATPI II) class ifica tions : Mary stero l <200 mg/dL Estela able Mary stero l 200-2 39 mg/dL Borde rline High Mary stero l >or=2 40 mg/dL High HDL <40 mg/dL Low HDL >or=6 0 mg/dL High LDL <100 mg/dL Optim al LDL 100-1 29 mg/dL Near Optim al/Ab ove Optim al LDL 130-1 59 mg/dL Borde rline High LDL 160-1 89 mg/dL High LDL >or=1 90 mg/dL Very High *The above refer ence range is for adult s 18 years or older . Not Available [address] [place], [address] 12/31/2023 19:36:26 04/01/20 24 04/01/2024 hemog lobin A1C, finge rstic k hemoglobin A1C 8.1 % <5.7 Not Available [facility] [address], [place], [address], 04/01/2024 07:53:00 06/20/20 24 04/12/2021 imagi ng/di agnos tic resul t No observ ation record ed. Not Available 06/20 02:10:14 06/20/2009/04/2019 XR, chest No observ ation record ed. [...] Recorded Time Malignan t tumor of prostate 853391658 Active 201903/05/20 22 - Comments only - Pillo Rabago RPA - continue s to followup with urology. Slowly progress doyle obstruct doyle urinary symptoms s/p urethrop lasty. Problem Code: C61; Problem Code Type: ICD-10; Not Available [facility] 3 04:49:46 Type 2 diabetes mellitus without complica tion 748525388 Active 201907/04/20 22 - Comments only - Pillo Rabago RPA - Doing very well on ozempic 0.5 mg weekly. He would like to lower lantus dose to 30 units twice daily which I think is reasonab le. Infreque nt need for short acting insulin. Problem Code: E11.9; Problem Code Type: ICD-10; Not Available [facility] 3 04:49:46 Testicul ar hypofunc tion 376879244 Active 201904/17/20 21 - Comments only - Pillo Rabago RPA - Recent consult with endocrin ology at [facility]. They recommen ded no testoste dora suppleme ntation given slight chance of prostate cancer. They plan on forwardi ng the note to this office. Problem Code: E29.1; Problem Code Type: ICD-10; Not Available [facility] 3 04:49:46 Pure hypergly ceridemi a 363120595 Active 201903/05/20 22 - Comments only - Pillo Rabago RPA - continue s on statin Problem Code: E78.1; Problem Code Type: ICD-10; Not Available [facility] 3 04:49:46 Obesity 769929403 Active 2019 Problem Code: E66.9; Problem Code Type: ICD-10; Not Available [facility] 3 04:49:46 Insomnia 664668055 Active 2019 Problem Code: G47.00; Problem Code Type: ICD-10; Not Available [facility] 3 04:49:46 Chronic obstruct doyle pulmonar y disease 53890668 Active 201903/05/20 22 - Comments only - Pillo Rabago RPA - smoking history. Asymptom atic. Routine low dose ct scans Problem Code: J44.9; Problem Code Type: ICD-10; [address], [place], [address] , [facility] 4 16:00:03 Liver function tests outside referenc e range 992859415 Active 201911/04/19 22 - Comments only - Pillo Rabago RPA - fatty liver on pior imaging. Problem Code: R94.5; Problem Code Type: ICD-10; [address], [place], [address] , [facility] 4 16:00:49 Polyneur opathy 24255150 Active 201901/03/20 23 - Comments only - Pillo Rabago RPA - Doing well on the Lyrica 200 mg twice daily dosing. He has noted improved balance since the lower dose was started. Problem Code: G62.9; Problem Code Type: ICD-10; Not Available [facility] 3 04:49:47 Kidney stone 53026019 Active 201908/10/20 20 - Comments only - Pillo Rabago RPA - history of Problem Code: N20.0; Problem Code Type: ICD-10; Not Available [facility] 3 04:49:47 Mood disorder 65028595 Active 2019 Problem Code: F39; Problem Code Type: ICD-10; [address], [place], [address] , [facility] 4 16:01:04 Obstruct doyle sleep apnea syndrome 39231500 Active 202003/05/20 22 - Comments only - Pillo Rabago RPA - stable on bipap. Problem Code: G47.33; Problem Code Type: ICD-10; Not Available [facility] 3 04:49:48 Gastroes ophageal reflux disease without esophagi tis 574676792 Active 2021 erosive esophagi tis/jai ritis 2018 egd Problem Code: K21.9; Problem Code Type: ICD-10; [address], [place], [address] , [place] - [facility]. 4 16:00:30 Otitis media of left ear [id number] 19439 Completed 202101/02/2023 Problem Code: H66.92; Problem Code Type: ICD-10; Not Available [facility] 3 04:49:51 Viral screenin g Completed 202001/02/2023 Problem Code: Z11.59; Problem Code Type: ICD-10; Not Available [facility] 3 04:49:51 Acute upper respirat ory infectio n 72512390 Completed 202101/02/2023 Problem Code: J06.9; Problem Code Type: ICD-10; Not Available [facility] 3 04:49:51 Foot pain 63787123 Completed 202101/02/2023 Problem Code: M79.673; Problem Code Type: ICD-10; Not Available [facility] 3 04:49:52 Prostate specific antigen above referenc e range 227039268 Completed 202105/05/2023 Problem Code: R97.20; Problem Code Type: ICD-10; Not Available [facility] 3 04:49:52 Notes:*Problem Name: Urethra l stricture *Problem Status: active *Comments: 04/17/2021 - Comments only - Pillo Hima DELACRUZ - Having urethroplasty at [facility] next week. *Problem Code: N99.89 *Problem Code Type: ICD-10 *Note Date: 08/01/2020 Problem Notes None recorded. Procedures Surgical History None recorded. Imaging Results Imaging Date Name Status [facility] Details LastModified Time 04/12/2021 imaging/diagno stic result completed Information not available 06/20/2024 02:10:14 09/04/2019 XR, chest completed Information no t available 06/20/2024 02:10:21 07/30/2019 CT, head or brain completed Information not available 06/20/2024 02:10:22 01/25/2019 LDCT, chest, for lung cancer screening completed Information not available 06/20/2024 02:10:26 04/21/2022 LDCT, chest, for lung cancer screening completed Information not available 06/20/2024 02:10:27 06/11/2023 LDCT, chest, for lung cancer screening completed Information not available 06/20/2024 02:10:28 04/21/2022 LDCT, chest, for lung cancer screening completed Information not available 06/20/2024 02:10:30 06/11/2023 LDCT, chest, for lung cancer screening completed Information not available 06/20/2024 02:10:31 03/29/2019 US, renal completed Information no t available 06/20/2024 02:10:32 08/15/2020 MRI, pelvis completed Information n ot available 06/20/2024 02:10:36 02/13/2021 imaging/diagno stic result completed Information not available 06/20/2024 02:10:47 Procedure Notes None recorded. Medical Equipment None Reported. Allergies Allergen ID Allergen Name Allergen Category Reaction Reaction Severity Criticality Documentation Date Start Date Code Code System Note Provider Name and Address Organization Details Recorded Time 88481 Keflex medicatio n rash Not available Not available 07/01/2024 7 RxNorm summe r 2022 JAM LEZAMA RN [facility], [place] - [facility] 08:15:20 Medications Name Sig Start Date [...] mass index (BMI) Body weight Body temperature Respiratory rate Heart rate Systolic blood pressure Diastolic blood pressure Provider Name and Address Organization Details Last Updated DateTime 4 178.31 cm 35.1 kg/m2 570982. 44 g 97.2 [degF] 16 /min 80 /min 104 mm[Hg] 52 mm[Hg] NEHA NORRIS RN [facility] 4 14:33:43 Date Recorded Body height Body mass index (BMI) Body weight Body temperature Oxygen saturation Oxygen saturation in Arterial blood by Pulse oximetry Heart rate Systolic blood pressure Diastolic blood pressure Provider Name and Address Organization Details Last Updated DateTime 4 178.31 cm 36 kg/m2 632669 g 98.3 [degF] 98 % 98 % 96 /min 138 mm[Hg] 78 mm[Hg] JONEL DIETRICH MA [facility] 4 07:33:10 Date Recorded Body height Body mass index (BMI) Body weight Body temperature Oxygen saturation Oxygen saturation in Arterial blood by Pulse oximetry Respiratory rate Heart rate Systolic blood pressure Diastolic blood pressure Provider Name and Address Organization Details Last Updated DateTime 4 178.31 cm 35.5 kg/m2 095553. 5 g 98.8 [degF] 99 % 99 % 12 /min 76 /min 110 mm[Hg] 58 mm[Hg] JAM LEZAMA RN [facility] 4 08:18:32 Social History Question Answer Notes LastModified by Organizat ion Details LastModified Time Tobacco Smoking Status Former Smoker NEHA NORRIS RN [facility], [facility] 12/31/2023 14:35:14 When Did You Quit Smoking? [...] pneumococcal, unspecified formulation 08/19/2019 completed Not Available [facility] 08/14/2023 05:38:39 Tdap 10/31/2020 completed Not Available [facility] 05:38:40 zoster live 10/08/2020 completed Not Available [facility] 08/14/2023 05:38:41 zoster live 07/23/2020 completed Not Available [facility] 08/14/2023 05:38:41 Influenza, high-dose, quadrivalent, PF 07/04/2022 completed Not Available [facility] 08/14/2023 05:38:41 COVID-19, mRNA, LNP-S, PF, 100 mcg/0.5mL dose or 50 mcg/0.25mL dose 12/18/2020 completed Not Available [facility] 08/14/2023 05:38:42 SARS-COV-2 (COVID-19) vaccine, UNSPECIFIED 01/14/2021 completed Not Available [facility] 08/14/2023 05:38:42 SARS-COV-2 (COVID-19) vaccine, UNSPECIFIED 09/04/2021 completed Not Available [facility] 08/14/2023 05:38:42 COVID-19, mRNA, LNP-S, bivalent, PF, 30 mcg/0.3 mL dose 07/04/2022 completed Not Available [facility] 11/10/20 23 05:38:43 pneumococcal polysaccharide PPV23 10/31/2020 completed Not Available [facility] 2022 05:38:43 influenza, unspecified formulation 07/23/2020 completed Not Available [facility] 08/14/2023 05:38:43 Influenza, high-dose, quadrivalent, PF 07/31/2023 completed Not Available [facility] 10/16/2023 05:31:38 COVID-19, mRNA, LNP-S, PF, alla-sucrose, 30 mcg/0.3 mL 07/31/2023 completed Not Available [facility] 10/16/2023 05:31:38 Past Encounters Encounter ID Performer Location Encounter Start Date Encounter Closed Date Diagnosis/Indication Diagnosis SNOMED-CT Code Diagnosis ICD10 Code [id number] PILLO RABAGO PA-C [facility] [address] [place] [address] 12/31/2023 13:49:49 12/31/2023 15:12:14 Screening for malignant neoplasm of colon 906057362 Z12.11 Type 2 adriana betes mellitus without complication 553150274 E11.9 Gastroesop hageal reflux disease without esophagitis 459020944 K21.9 Mood disorder 68557398 F 39 Polyneuropathy 53695430 G62.9 [id number] PILLO RABAGO PA-C [facility] [address] [place] [address] 04/01/2024 07:23:55 04/01/2024 08:04:18 Type 2 diabetes mellitus without complication 783997355 E11.9 Obstructiv e sleep apnea syndrome 23420713 G47.33 Malignant tumor of prostate 817583315 C61 Mood disorder 91190320 F 38 Pure hyperglyceridemia 294533835 E78.1 [id number] PILLO RABAGO PA-C [facility] [address] [place] [address] 07/01/2024 08:07:39 07/01/2024 09:17:10 Type 2 diabetes mellitus without complication 315329645 E11.9 Pure hyperglyceridemia 237469497 E78.1 Ex-smoker 6860342 Z87.89 1 Mood disorder 14396667 F 39 Polyneuropathy 06198596 G62.9 Health Concerns Section Related Observation LastModified by Organization Detai ls LastModified Time None Recorded Concern Status LastModified by Organization Details LastModified Time None Recorded Advance Directives Directive None Recorded Payers Encounter Date Sequence Insurance Name Policy Number Policy Fritz Covered Member ID Fritz Member ID Guarantor Name 12/31/2023 1 [place] [facility] [id number] Topher A Naraghi [id number] Topher A Naraghi 04/01/2024 1 [place] - [place]PO) Topher A Naraghi [id number] Topher A Naraghi 07/01/2024 1 [place] - [place]) Topher A Naraghi [id number] Topher A Naraghi Notes Date Note Type Note Provider Name and Address Organization Details Recorded Time 12/31/2023 text/html HPI Notes: Landen is here for follow-up of diabetes, hyperlipidemia, neuropathy, and chronic mood disorder. He thinks he is due for colonoscopy and endoscopy. He met with a general surgeon about [facility] but prefers to have it done elsewhere. His blood sugars have been running high. He is currently splitting his Lantus dose. Using short acting insulin as well. Occasional hypoglycemic episodes in the early afternoon if he does not eat lunch. He is using edible marijuana in the morning that he feels is helping his mood. [address], [place], [address], [facility] 12/31/2023 15:38:49 04/01/2024 text/html HPI Notes: Landen is here [...] apnea. This has been very helpful. [address], [place], [address], [facility] 04/01/2024 12:45:02 07/01/2024 text/html HPI Notes: Landen is here for follow-up of hypertension, hyperlipidemia, type 2 diabetes, and mood disorder. He was able to get Mounjaro at a fairly reasonable wild for couple months but he is now in the donut hole and can no longer afford it. Mounjaro was working well for him. Weight loss. Improved blood sugars. Otherwise he is doing fairly well. He needs a new order for low-dose CT scan. Mood has been stable. He has upcoming urology Visit. His urine flow has been decreasing. Concerned about his prostate [address], [place], [address], [facility]. 07/01/2024 09:30:31
--- OUTSIDE RECORDS SUMMARY | 2024-07-01 10:26 | XMS_ITS | Encounter Summary ---
Author Organization [facility] Address [address] [place] [address] Care Team Providers Care Water And Fire Technician Name Role Phone Unknown, Provider Primary Care Provider [phone] Pillo Rabago RPA Primary Care Provider + [phone] Encounter Details Date Type Department Care Team (Late st Contact Info) Description 11/10/2019 Lab Requisition [facility] Pathology & Laboratory Medicine - [address] [address] Unknown, Provider, Social History Tobacco Use Types [...] Diagnosis Comments TESTOSTERONE, TOTAL AND FREE Routine 11/10/2019 7:43 EST documented in this encounter Results * (ABNORMAL) TESTOSTERONE, TOTAL AND FREE (11/10/2019 7:43 EST) Testosterone 1,418(H) 229 - 902 ng/dL 11/11/2019 9:00 EST [facility] Comment: The results of this assay can be falsley elevated due to the consumption of Biotin. Sex Hormone Bnd Glob 22.5 21.6 - 113.1 nmol/L 11/11/2019 9:00 EST [facility] Comment: The results of this assay can be falsely lowered due to the consumption of Biotin. Free Testosterone 44.0(H) 3.3 - 11.6 ng/dL 11/11/2019 9:00 EST [facility] Blood VENOUS BLOOD / Unknown 11/10/2019 7:43 EST 11/10/2019 21:22 EST Narrative [facility] - 11/11/2019 9:00 EST This test is not recommended in patients with plasma protein abnormalities. Provider Unknown CHEMISTRY & BLOOD GA S ORDERABLES [facility] [address] [place] [address] documented in this encounter Visit Diagnoses Not on filedocumented in this encounter Care Teams Water And Fire Technician Relationship Specialty Start Date End Date Unknown, Provider, PCP - General 05/13/18 11/25/21 Pillo Rabago RPA [address] [place] [address] PCP - General Family Medicine - Primary Care 11/26/21 documented as of this encounter
--- OUTSIDE RECORDS SUMMARY | 2024-07-01 10:26 | XMS_ITS | Encounter Summary ---
Author Organization [facility] Address [address] [place] [address] Care Team Providers Care Emergency Medical Services Coordinator Name Role Phone Unknown, Provider Primary Care Provider [phone] Pillo Rabago RPA Primary Care Provider + [phone] Encounter Details Date Type Department Care Team (Late st Contact Info) Description 06/14/2020 Lab Requisition [facility] Pathology & Laboratory Medicine - [address] [address] Outr Resulting Lab, Provider Social History Tobacco [...] Diagnosis Comments TESTOSTERONE, TOTAL AND FREE Routine 06/14/2020 7:55 EDT documented in this encounter Results * (ABNORMAL) TESTOSTERONE, TOTAL AND FREE (06/14/2020 7:55 EDT) Testosterone 267 229 - 902 ng/dL 06/14/2020 22:59 EDT [facility] Comment:The results of this assay can be falsley elevated due to the consumption of Biotin. Sex Hormone Bnd Glob 21.4(L) 21.6 - 113.1 nmol/L 06/14/2020 22:59 EDT [facility] Comment:The results of this assay can be falsely lowered due to the consumption of Biotin. Free Testosterone 6.5 3.3 - 11.6 ng/dL 06/14/2020 22:59 EDT [facility] Blood VENOUS BLOOD / Unknown 06/14/2020 7:55 EDT 06/14/2020 22:02 EDT Narrative [facility] - 06/14/2020 22:59 EDT This test is not recommended in patients with plasma protein abnormalities. Provider Outr Resulting Lab CHEMISTRY & BLOOD GAS ORDERABLES [facility] [address] [place] [address] documented in this encounter Visit Diagnoses Not on filedocumented in this encounter Care Teams Emergency Medical Services Coordinator Relationship Specialty Start Date End Date Unknown, Provider, PCP - General 05/13/18 11/25/21 Pillo Rabago, JAYME [address] [place] [address] PCP - General Family Medicine - Primary Care 11/26/21 documented as of this encounter
--- OUTSIDE RECORDS SUMMARY | 2024-07-01 10:26 | XMS_ITS | Encounter Summary ---
Author Organization [facility] Address [address] [place] [address] Care Team Providers Care Office Inspector Name Role Phone Unknown, Provider Primary Care Provider Encounter Details Date Type Department Care Team (Latest Contact Info) Description 05/13/2018 15:11 EDT - 05/13/2018 23:59 EDT Hospital Encounter [address] [address] Unknown, Provider, Discharge Disposition: Home or Self Care Social History Tobacco Use Types Packs/Day Years Used Date Smoking Tobacco: Never Assessed Sex and Gender Information Value Date Recorded Sex Assigned at Male 04/10/2021 5:57 EDT Gender Identity Male 04/10/2021 5:57 EDT Sexual Orientation Straight 04/10/2021 5: 57 EDT documented as of this encounter Discharge Disposition Disposition Code Departure Means Destination Home or Self [facility]pc documented in this encounter Plan of Treatment Not on file documented as of this encounter Visit Diagnoses Not on filedocumented in this encounter Care Teams Office Inspector Relationship Specialty Start Date End Date Unknown, ProviderMD PCP - General 05/13/18 11/25/21 documented as of this encounter
--- OUTSIDE RECORDS SUMMARY | 2024-07-01 10:26 | XMS_ITS | Encounter Summary ---
Author Organization [facility] Address [address] [place] [address] Care Team Providers Care Imitation Marble Mechanic Name Role Phone Unknown, Provider Primary Care Provider Reason for Visit * Reason Onset Date Comments Appointment Related 08/19/2019 Dr. Araya Encounter Details Date Type Department Care Team (Late st Contact Info) Description 08/19/2019 Telephone [facility] Urology - [address] [id number] Rikki Araya MD [address] [place] [address], [address] [place] [address] Appointment Related (Dr. Araya) Social History Tobacco Use Types Packs/Day Years Used Date Smoking Tobacco: Never Assessed Sex and Gender Information Value Date Recorded Sex Assigned at Male 04/10/2021 5:57 EDT Gender Identity Male 04/10/2021 5:57 EDT Sexual Orientation Straight 04/10/2021 5: 57 EDT documented as of this encounter Miscellaneous Notes * Telephone Encounter - Graciela Arita - 08/19/2019 0834 EST Patient is calling to cancel his appt with Dr. Araya on 09.12.19 at 1500. He does not want to rs. Inclusion Manager canceled the appt. documented in this encounter Plan of Treatment Not on file documented as of this encounter Visit Diagnoses Not on filedocumented in this encounter Care Teams Imitation Marble Mechanic Relationship Specialty Start Date End Date Unknown, Provider, PCP - General 05/13/18 11/25/21 documented as of this encounter
--- OUTSIDE RECORDS SUMMARY | 2024-07-01 10:26 | XMS_ITS | Encounter Summary ---
Author Organization [facility] [place] [place] [address] Care Team Providers Care Metal Patternmaker Name Role Phone Pillo Rabago Primary Care Provider Reason for Visit * Consultation (GABBY) - Closed Specialty Diagnoses / Procedures Referred By Contac t Referred To Contact Infectious Diseases Diagnoses Osteomyelitis, unspecified OSTEOMYELITIS ON BACK OF HEAD, HX OF CANCER AND OSTEOMYELITIS IN AREA Rikki Villela MD [address] [place] [address] [address] [place] [address] [facility] [address] [place] [phone] Referral ID Status Reason Start Date Expiration Date V isits Requested Visits Authorized [id number] Closed Consult, Test & Treat [facility] PCP Updated and/or Approved 08/02/2019 08/01/2020 1 1 Encounter Details Date Type Department Care Team (Late st Contact Info) Description 08/05/2019 11:15 AM EDT Office [place] [address] Edwin Hussein MD [facility] [place] [address] Infected ulcer of skin, unspecified ulcer stage Social History Tobacco Use Types Packs/Day Years [...] Sign Reading Time Taken Comments Blood Pressure 135/72 08/05/2019 11:27 AM EDT Pulse 95 08/05/2019 11:27 AM EDT Temperature 36.7 ??C (98.1 ??F) 08/05/2019 1 1:27 AM EDT Respiratory Rate - - Oxygen Saturation 97% 08/05/2019 11: 27 AM EDT RA Inhaled Oxygen Concentration - - Weight 116.4 kg (256 lb 9.6 oz) 019 11:27 AM EDT Height - - Body Mass Index - - documented in this encounter Progress Notes * Edwin Hussein MD - 08/05/2019 11:15 AM EDT Infectious Disease Clinic - New Outpatient Visit Reason for Consult: We are being asked to see Topher Mosley at the request of Dr.Peter Villela for evaluation of scalp skin graft ulcer HPI: Topher Mosley is a 64 y.o. 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 Patient's noticed an ulcer in his skin graft with surrounding skin redness on Thursday07/30/2019 initially she mentioned that she colleen his hair frequently but not doing that on the week preceding her identifying the ulcer. patient denies having fevers, chills or local pain as he is insensate to the graft skin area, he acknowledges occasional night sweats and mentions that he changed his CPAP mask couple of weeks ago and has been using rough hairbrush recently while on a road trip. He postulates that the CPAP mask or the hairbrush could have precipitated the initial skin break. He was seen at an emergency department last week and his was concerned also was infected, he was seen by surgery who decided not to biopsy of the lesion and opted to start him on Bactrim empirically per our discussion with them. No cultures were obtained as there was no enough drainage in the base of the ulcer. PMH: BPH, diabetes mellitus type 2, obstructive sleep apnea, fibrosarcoma status post resection and skingrafting, osteomyelitis of the cervical spine in 2011. SH: Social History Socioeconomic History ??? Marital status: [...] file Gets together: Not on file Attends baptism service: Not on file Active member of [...] Social History Narrative ??? Not on file FH: No immunocompromising conditions or h/o infection ROS: General Denies fevers, chills, night sweats, change in weight. HEENT Denies change in vision or hearing, tinnitus, epistaxis, sore throat, PND. CVS Denies chest pain, palpitations, pedal edema, PND. Pulm Denies shortness of breath, CARABALLO, wheezes, cough. GI Denies abdominal pain, nausea/vomiting, constipation/diarrhea, hematemesis, hemetechezia. Denies hematuria, dysuria, frequency. MS Denies arthralgia/myalgias. Endo Denies thyroid disorders. Neuro Denies focal weakness, parasthesias, gait instability. Psych Denies mood disorder, sleep disturbance. Skin complains of skin graft also described in HPI Physical Exam: General Neuro A&O x 3 in NAD. CN III-XII intact. Muscle strength 5/5 in upper and lower extremities. DTR 2+ b/l. Eyes PERRLA, EOMI, no scleral/conjunctival injection or icterus. Neck No lymphadenopathy. Heart RRR, no murmurs, rubs, gallops. Lungs CTAB without wheezes, rhonchi, rales. Abdomen Soft, nontender, nondistended. Positive bowel sounds. Ext No cyanosis, clubbing, edema. 2+ DP/PT pulses b/l. Skin skin graft ulcer noted (seen image in scan docs) Labs: Labs obtained during the emergency department visit last week were reviewed and scanned documents. CBC showed normal white BC count of 6.0, CRP was elevated at 2.6 mg/dL and ESR was normal. Imaging: CT head at [facility] revealed right? Occipital soft tissue lesion with reportedly normal osseous structures and no mention of collection or abscess formation. Assessment/Plan: This is a 64-year-old gentleman with past medical history significant for fibrosarcoma in the 1980sstatus post resection and skin grafting Who is presenting for the assessment of left occipital areaold skin graft ulcer of an unknown duration probably 1 week or so and no systemic symptoms suggestive of an infectious process. He was seen by surgery at [facility] and was started on Bactrim for concern of local infection of the ulcer site. The etiology of this ulcer could be traumatic due to his recent change inCPAP mask and use of the rough hairbrush on his trip. It is quite possible that the initial skin break became secondarily infected however at this point looks that it has improved after 3 days of Bact rim with scant discharge at that space [difficult to distinguish from the local Neosporin his was applying]. Given his improvement on Bactrim and bacterial superinfection etiology appears more likely, howeverif he fails Bactrim in 10 days or if the ulcer starts worsening again he might need skin biopsy to achieve the microbiological diagnosis, if such a biopsy is obtained we would recommend obtaining AFBand fungal staining and cultures in addition to the regular aerobic and anaerobic cultures. It is also important that the patient follows with plastic surgery today for wound care instructions and skin graft assessment. We will see him again on as needed basis Plan: --Continue Bactrim 1 double strength tablet p.o. twice daily for the full duration of 10 days. --Follow with plastic surgery for wound care instructions. --Patient will notify office and plastic surgery also becomes worse or starts draining. --We will assess the need for an MRI head to rule out underlying osteomyelitis only if plastic surgery deem the skin break deep enough probing to the bone. Case and plan of care discussed with Dr. Blake Kim. Edwin Hussein MD Clinical Fellow Infectious Disease * Blake Kim DO - 08/05/2019 11:15 AM EDT I have seen the patient and reviewed the history and physical and I agree with the details as written by Dr Hussein. The assessment and plan were formulated in discussion with me and I agree with them as documented. 64M with h/o fibrosarcoma resection with reconstruction of scalp about 30 years ago presenting withnew ulcer over skin graft site. Ulcer appears to have developed over 1 week period per . Patient does not have feeling in that area so does not have pain but has had a left sided headache for about 1 week. Of note, he wears CPAP mask at night and states he got a new strap about 3 weeks ago and the strap goes right over the area of concern. He denies any other changes to hair products or exposures. He also states that his initial fibrosarcoma occurrence was a nodule under the skin not an ulcerating lesion. Patient now on bactrim for suspected skin/soft tissue infection with some improvement based on pictures. He had a CT done on 07/30 but images are not available to view. Per report, findings show right occipital soft tissue prominence but no bony abnormalities. I wonder if this was anerror in laterality or if what is being called out is the redundant soft tissue from his reconstruct ion, but it does not appear to note the ulcerative area of concern. Will request images to review myself. His ulcer appears to be within the skin graft, not at any incision line. It appears quite superficial without any surrounding swelling or erythema. If osteomyelitis is a concern then will probably need MRI to better evaluate. For now recommend follow up with plastic surgery as planned and comp lete his current course of antibiotics. Please let us know if we can be of further assistance basedon outcome of appointments and clinical course. Blake Kim DO, MPH Infectious Disease documented in this encounter Miscellaneous Notes * Addendum Note - Blake Kim DO - 08/05/2019 11:15 AM EDTAddended by: BLAKE KIM on: 08/09/2019 03:12 PM Modules accepted: Level of Service documented in this encounter Plan of Treatment Not on file documented as of this encounter Visit Diagnoses Diagnosis Infected ulcer of skin, unspecified ulcer stage documented in this encounter Care Teams Metal Patternmaker Relationship Specialty Start Date End Date Pillo Rabago PA PCP - General General Internal Medicine 08/05/19 documented as of this encounter
--- OUTSIDE RECORDS SUMMARY | 2024-07-01 10:26 | XMS_ITS | Encounter Summary ---
Author Organization [facility] Address [address] [place] [address] Care Team Providers Care Courtesy Van Driver Name Role Phone Unknown, Provider Primary Care Provider Pillo Rabago RPA Primary Care Provider + [phone] Encounter Details Date Type Department Care Team (Late st Contact Info) Description 04/18/2021 Lab Requisition [facility] Pathology & Laboratory Medicine - [facility] [address] [place] [address] Outr Resulting Lab, Provider Social History Tobacco [...] Procedure Name Priority Date/Time Associated Diagnosis Comments PROLACTIN Routine 04/18/2021 8:46 EDT TESTOSTERONE Routine 04/18/2021 8:46 EDT LH Routine 04/18/2021 8:46 EDT FSH Routine 04/18/2021 8:46 EDT documented in this encounter Results * (ABNORMAL) TESTOSTERONE (04/18/2021 8:46 EDT) Testosterone 139(L) 229 - 902 ng/dL 04/19/2021 8:54 EDT [facility] Blood VENOUS BLOOD / Unknown 04/18/2021 8:46 EDT 04/18/2021 21:03 EDT Narrative [facility] - 04/19/2021 8:54 EDT The results of this assay can be falsely elevated due to the consumption of Biotin. Provider Outr Resulting Lab CHEMISTRY & BLOOD GAS ORDERABLES Performing Organization Address City/[facility]/ZIP Co de Phone Number [facility] [address] [place] [address] * (ABNORMAL) PROLACTIN (04/18/2021 8:46 EDT) Prolactin 1.1(L) 2.1 - 17.7 ng/mL 04/19/2021 8:42 EDT [facility] Blood VENOUS BLOOD / Unknown 04/18/2021 8:46 EDT 04/18/2021 21:03 EDT Provider Outr Resulting Lab CHEMISTRY & BLOOD GAS ORDERABLES Performing Organization Address City/[facility]/ZIP Co de Phone Number [facility] [address] [place] [phone] * LH (04/18/2021 8:46 EDT) Luteinizing Hormone 5.5 1.5 - 9.3 mIU/mL 04/19/2021 8:28 EDT [facility] Blood VENOUS BLOOD / Unknown 04/18/2021 8:46 EDT 04/18/2021 21:03 EDT Provider Outr Resulting Lab CHEMISTRY & BLOOD GAS ORDERABLES Performing Organization Address City/[facility]/ZIP Co de Phone Number [facility] [address] [place] [address] * FSH (04/18/2021 8:46 EDT) FSH 8.1 1.4 - 18.1 mIU/mL 04/19/2021 8:27 EDT [facility] Blood VENOUS BLOOD / Unknown 04/18/2021 8:46 EDT 04/18/2021 21:03 EDT Provider Outr Resulting Lab CHEMISTRY & BLOOD GAS ORDERABLES [facility] [address] [place] [address] documented in this encounter Visit Diagnoses Not on filedocumented in this encounter Care Teams Courtesy Van Driver Relationship Specialty Start Date End Date Unknown, Provider, PCP - General 05/13/18 11/25/21 Pillo Rabago, [facility] [address] [place] [address] PCP - General Family Medicine - Primary Care 11/26/21 documented as of this encounter
--- OUTSIDE RECORDS SUMMARY | 2024-07-01 10:26 | XMS_ITS | Encounter Summary ---
Author Organization [facility] Address [address] [place] [address] Care Team Providers Care Rope Rider Name Role Phone Unknown, Provider Primary Care Provider Reason for Visit * Reason Comments Testosterone Problem * Referral (Routine) - Closed Specialty Diagnoses / Procedures Referred By Amanda ricks Referred To Contact Endocrinology Diagnoses Testicular hypofunction Scott Hernandez MD [address] [place] [id number] [facility] [address] [place] [address] Referral ID Status Reason Start Date Expiration Date Visits Re quested Visits Authorized [id number] Closed 1 1 Encounter Details Date Type Department Care Team (Latest Contact Info) Description 04/16/2021 15:00 EDT Telemedicine [facility] Endocrinology - [facility] [address] [place], [place] [id number] Norma Huang MD [address] [place] [address] Hypogonadism in male (Primary Dx) Social History Tobacco Use Types Packs/Day Years Used Date Smoking Tobacco: Never Assessed Interpersonal Safety Answer Date Record ed Physically Hurt Never 05/07/2020 Verbally Threaten Not on file 05/07/2020 Sex and Gender Information Value Date Recorded Sex Assigned at Male 04/10/2021 5:57 EDT Gender Identity Male 04/10/2021 5:57 EDT Sexual Orientation Straight 04/10/2021 5: 57 EDT documented as of this encounter Progress Notes * Norma Huang - 04/16/2021 1500 EDT The patient was referred here for hypogonadism by urology Dr. Scott Hernandez to review testosteronetreatment and consider other options. 65M with hx of TOSHIA, obesity, urethral stricture, carcinoma of prostate presumed T1c treated expectantly with favorable follow up MRI results per urology note (declined repeat biopsy) Mr Mosley was first diagnosed with hypogonadism in 2013 per pt report. He does not remember the testosterone level but says it was below 200. He does not think he had additional testing to see if primary or secondary. In brief he says he was on testosterone on and off then notes 1.5 years later hehad an increase in his PSA while living in [place]. He was diagnosed with a prostate cancer which was managed expectantly. In 2014 his testosterone was stopped. Then later in [place] he was restartedon testosterone with urology. He was not having relief of his symptoms such as fatigue, insomnia, agitation, weight gain and low energy so he self-increased his dose to 8-10 actuations a day and believes he may have had improvement in symptoms then. His testosterone levels came back in the 999s and his self-increased dose was revealed to his urologist and his testosterone was stopped. Upon laterdiscussion and in effort to relieve patients symptoms it was eventually restarted testosterone gel 1.62% at 4 ACT/day which he applies to his shoulders but he does not feel relief of his symptoms. His last testosterone level was 267 in June 2020. He was referred to endocrine to review his hypogonadism and consider other options such as clomiphene citrate and anastrazole. The patient complains of fatigue and erectile dysfunction and cannot afford cialis and also c/o weight gain. He has never had a bone density test performed. He denies bone fractures or height loss. He has normal shaving patterns. He denies headaches or visual changes. He denies difficulty swallowing, chest pain, palpitations or trouble breathing. He has TOSHIA. The patient denies bowel movement changes but does have history of urethral stricture for which he is getting a procedure. No history of stroke, cardiovascular disease, blood clot. He does have a history of diabetes. The remainder of review of systems is unremarkable. Past medical and surgical history, medications, allergies, social history and family history were reviewed. Physical exam: Limited for televideo There were no vitals filed for this visit. Gen: well developed, pleasant, NAD. Labs: 06/14/20 Testosterone total 267, free testosterone 6.5 Assessment/Plan: 65M with history of longstanding stable prostate cancer on repeat MR, diabetes, Hypogonadism (unclear if primary or secondary) on and off testosterone since 2013 presenting for review of testosterone. Given history of prostate cancer and overuse in the past, continued symptoms despite treatment, would be preferable to stop testosterone treatment, complete workup to determine if primary or secondary in nature and to see PCP to help further workup his symptoms which have been affecting his quality of life. -stop testosterone (which he has already done in preparation for urology procedure) and Will order labs including testosterone, LH, FSH, prolactin, CBC and will contact patient with the results. (labs ordered external for fax to [facility]). If secondary may need further workup of pituitary -pending labs may also consider/discuss alternate treatments such as clomiphene citrate or anastrozole as brought up by urology -will need DXA exam at some point given risk of osteoporosis with hypogonadism -continue prostate ca monitoring with urology -consider further PCP workup of ongoing symptoms Follow up 4-6 months and pending labs Case discussed and seen with Dr Chantelle Huang Endocrinology Fellow PGY-4 Pager # [phone] * Eve Smalls DO - 04/16/2021 1500 EDT Endocrine Attending: This patient was seen and evaluated with the fellow and I agree with the assessment and plan. documented in this encounter Miscellaneous Notes * Addendum Note - Eve Smalls DO - 04/16/2021 1500 EDTAddended by: EVE SMALLS on: 04/18/2021 17:18 Modules accepted: Level of Service documented in this encounter Plan of Treatment Not on file documented as of this encounter Visit Diagnoses Diagnosis Hypogonadism in male- Primary documented in this encounter Care Teams Rope Rider Relationship Specialty Start Date End Date Unknown, Provider, PCP - General 05/13/18 11/25/21 documented as of this encounter
--- OUTSIDE RECORDS SUMMARY | 2024-07-01 10:26 | XMS_ITS | Encounter Summary ---
Author Organization [facility] Address [address] [place] [address] Care Team Providers Care Back End Developer Name Role Phone Unknown, Provider Primary Care Provider Reason for Visit * Reason Comments Hypogonadism Encounter Details Date Type Department Care Team (Latest Contact Info) Description 09/04/2021 16:00 EST Telemedicine [facility] Endocrinology - [facility] [address] [place], [place] [phone] Sherif Huang MD [address] [facility] [address] [place] [phone] Hypogonadotropic hypogonadism (HCC-CMS) (HCC) (HCC-CMS) (Primary Dx) Social History Tobacco Use Types [...] as of this encounter Progress Notes * Sherif Huang - 09/04/2021 1600 EST The concept of ???Telemedicine?? has been described to the patient.? Patient has been informed of the anticipated benefits and possible risks.? Patient understands the information provided regardingtelemedicine, has had the opportunity to ask questions about this information, and all questions have been answered to patient???s satisfaction. Patient consents for the use of telemedicine in his/her medical care and authorizes the transmission of any relevant medical information to providers and their staff involved in patient???s medical or mental health care. TELEMEDICINE VIDEO VISIT Today's visit was provided through telemedicine video conferencing: I have reviewed the appropriateness of using video technology with the patient with regards to today's visit. The location of the patient : Home Patient location state: Visit Location State: [place] The location of the provider: home office Provider location state: Visit Location State: [place] The following people and their roles were present for today's visit: Appointment Provider: Sherif Huang Endocrinology Patient Visit- Follow up Date of Service: 09/04/2021 Chief Complaint Patient presents with ??? Hypogonadism HPI: 65M with hx of TOSHIA, obesity, urethral stricture, carcinoma of prostate presumed T1c treated expectantly with favorable follow up MRI results per urology note (declined repeat biopsy), here for follow up of hypogonadism Last seen by me 04/16/21 Hx The patient was referred here for hypogonadism by urology Dr. Scott Hernandez to review testosteronetreatment and consider other options. Mr Mosley was first diagnosed with hypogonadism [...] his testosterone was stopped. Then later in [place] he was restartedon testosterone with urology. He was apparently not having relief of his symptoms such as fatigue, insomnia, agitation, weight gain and low energy so he self-increased his dose to 8-10 actuations a day and believes he may have had improvement in symptoms then. His testosterone levels came back in the 1000s and his self-increased dose was revealed to his urologist and his testosterone was stopped.Upon later discussion and in effort to relieve patients symptoms it was eventually restarted testosterone gel 1.62% at 4 ACT/day which he applied to his shoulders but he reportedly does not feel relief of his symptoms. [...] history of urethral stricture for which he just had a procedure. No history of stroke, cardiovascular disease, blood clot. He does have a history of diabetes and is on metformin and insulin. The remainder of review of systems is unremarkable. Given his history of prostate cancer and overuse in the past, some continued symptoms despite treatment, it was decided to stop testosterone treatment, also on anticipation of the urethroplasty, complete workup to determine if primary or secondary in nature and to see PCP to help further workup hissymptoms which have been affecting his quality of life. Today he continues to have Fatigue, weight gain despite trying diet and exercise, some growth in breast tissue worse in the past year with weight gain and since stopping testosterone. Some proximal myopathy with difficulty standing from a chair but ok with stairs. He has been off testosterone since April 2021. Review of Systems A 10 point review of systems was obtained, pertinent positives and negatives as listed above, all others negative. There is no problem list on file for this patient. No past medical history on file. No past surgical history on file. Not on File There were no vitals taken for this visit. Physical Exam: Gen: alert, cooperative, in NAD Limited for televideo Previous Labs: CBC: No results found for: WBC, RBC, HGB, HCT, MCV, MCH, MCHC, PLT, NEUTROABS, SEDRATE No results found for: HGBA1C, GLUF, MICROALBUR No results found for: CHOL, HDL, LDLBASE, TRIG, CHOLHDL No results found for: ALT, AST, GGT, ALKPHOS, BILITOT, TSH 04/18/21 FSH 8.1 LH 5.5 prolactin 1.1 Testosterone at 8:46 AM 139 Results for ALEXIS MOSLEY ( ) as of 09/04/2021 08:59 Ref. Range 08/12/2019 06:53 11/10/2019 07:43 04/17/2020 07:26 06/14/2020 07:55 04/18/2021 08:46 Free Testosterone Latest Ref Range: 3.3 - 11.6 ng/dL 13.8 (H) 44.0 (H) 1.4 (L) 6.5 FSH Latest Ref Range: 1.4 - 18.1 mIU/mL 8.1 Luteinizing Hormone Latest Ref Range: 1.5 - 9.3 mIU/mL 5.5 Prolactin Latest Ref Range: 2.1 - 17.7 ng/mL 1.1 (L) Sex Hormone Bnd Glob Latest Ref Range: 21.6 - 113.1 nmol/L 16.8 (L) 22.5 22.1 21.4 (L) Testosterone Latest Ref Range: 229 - 902 ng/dL 480 1,418 (H) 60 (L) 267 139 (L) Assessment: 66 y.o. with hx of TOSHIA, T2DM, obesity, urethral stricture, carcinoma of prostate presumed T1c treated expectantly with favorable follow up MRI results per urology note (declined repeat biopsy), here for follow up of hypogonadism. Given that hypogonadotrophic hypogonadism and testosterone as low as 139 will order MRI pituitary and will also screen for hemochromatosis. Will review literature on treating hypogonadism with underlying low grade prostate cancer and possibly discuss with urology. Plan: Topher was seen today for hypogonadism. 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 - insulin glargine (LANTUS SOLOSTAR/SEMGLEE) 100 unit/mL (3 mL) injection pen; Inject 40 Units intothe skin 2 times daily. - insulin lispro (HUMALOG) 100 unit/mL vial; Inject into the skin 3 times daily before meals. Pt uses a sliding scale - omeprazole (PRILOSEC) 20 mg capsule; Take by mouth daily. - SUCRALFATE ORAL; Take by mouth. - pregabalin (LYRICA ORAL); Take by mouth. -send Ferritin and transferrin saturation-- external lab to [facility] -ordered MRI head--pt prefers to have it at [facility] -I plan to Review the literature on treatment of hypogonadism with underlying low grade prostate cancer -pt will need DXA exam at some point given risk of osteoporosis with hypogonadism -continue prostate ca monitoring with urology Follow-up in 6 months. Patient was seen and examined with Dr Marrero. Sherif Huang Endocrinology Fellow PGY-4 Pager # [phone] SHERIF HUANG 09/04/2021 23:04 * Reno Marrero DO - 09/04/2021 1600 EST Attestation: I performed or was present during the ba or critical portions of the visit and participated in the management of the patient on 09/04/21. I agree with the findings and plan of care as documented in the resident's/fellow's note. Reno Marrero DO 09/08/2021 18:11 documented in this encounter Plan of Treatment Not on file documented as of this encounter Visit Diagnoses Diagnosis Hypogonadotropic hypogonadism ([facility])- Primary Other anterior pituitary disorders documented in this encounter Historical Medications * This list may reflect changes made after this encounter. Medication Sig Dispensed Refills Start Date End Date pregabalin (LYRICA ORAL) Take by mouth. SUCRALFATE ORAL Take by mouth. omeprazole (PRILOSEC) 20 mg capsule Take by mouth daily. insulin lispro (HUMALOG) 100 unit/mL vial Inject into the skin 3 times daily before meals. Pt uses a sliding scale insulin glargine (LANTUS SOLOSTAR/SEMGLEE) 100 unit/mL (3 mL) injection pen Inject 40 Units into the skin 2 times daily. metFORMIN (GLUCOPHAGE) 500 mg tablet Take 500 mg by mouth 2 times daily with breakfast and dinner. added in this encounter Care Teams Back End Developer Relationship Specialty Start Date End Date Unknown, Provider, PCP - General 05/13/18 11/25/21 documented as of this encounter
--- OUTSIDE RECORDS SUMMARY | 2024-07-01 10:26 | XMS_ITS | Continuity of Care Document ---
Author Organization [place] - [facility] Address [address] [place] [address] Assessment Encounter Date Assessment Date Assessment LastModified by Organization Details LastModified Time 07/01/2024 07/01/2024 He plans to get COVID [...] Not available Not available Not available Lab lipid panel, serum [email or web address] [place] [address] Lab, [address], [place], [address], 07/01/2024 09:17:34 HbA1c (hemoglob in A1c), blood 2023 024 red [facility] Laboratory (Registration ), [address] [place] [address] [place], [address], 07/01/2024 09:17:34 CMP, serum or plasma [email or web address] [place] [address] Laboratory (Registration ), [address] [place] [address] [place], [address], 07/01/2024 09:17:34 microalbu min, urine [email or web address] [place] [address] Laboratory (Registration ), [address] [place] [address] Dr, [place], [address], 07/01/2024 09:17:34 Referral None recorded. Procedures None recorded. Surgeries None recorded. Imaging LDCT, chest, for lung cancer screening - annual low dose ct 2023 024 [email or web address] [facility], [address] , [place], [address], 07/01/2024 10:00:00 Medication Orders None recorded. Patient TargetsNo targets recorded. Patient Instructions Encounter Date Encounter Id Patient Instructions Last Modified By Organization Details Last Modified Time 07/01/2024 [id number] I will send orde r for low dose CT scan at [facility] radiology. Start humalog with at least 2 units with meals if blood sugar is any greater than 150. Continue with current dose of lantus. I will call you Thursday with results of blood work. [email or web address] Not available 07/01/2024 08:56:13 Reason for Referral General Surgeon Referral for Screening for malignant neoplasm of colon screening colonoscopy. Adenomatous polyp on last colonoscopy in 2018. [facility]. Also consider upper endoscopy for history of erosive gastropathy and 2018 EGD. Manage on daily PPI Referring Physician: [facility], Encounter Date: 12/31/2023 Employment Legal Assistant Referral f or Type 2 diabetes mellitus without complication diabetic medical management/cgm initiation Referring Physician: [facility], Encounter Date: 12/31/2023 Urologist Referral for Malig nant tumor of prostate prostate ca followed with observation with chronic obstructive urinary symptoms s/p urethroplasty for urethral stricture. He would like referral back to urology for followup of issues. Referring Physician: [facility], Encounter Date: 04/01/2024 Results Created Date Observation Date Name Description Value Unit Range Abnormal Flag Note LastModifiedBy Organization Detail LastModifiedTime 06/20/2004/12/2021 imagi ng/di agnos tic resul t No [...] Recorded Time Malignan t tumor of prostate 851530432 Active 201903/05/20 22 - Comments only - Pillo Rabago RPA - continue s to followup with urology. Slowly progress ramez obstruct ramez urinary symptoms s/p urethrop lasty. Problem Code: C61; Problem Code Type: ICD-10; Not Available [facility] 3 04:49:46 Type 2 diabetes mellitus without complica tion 482625896 Active 201907/04/20 22 - Comments only - Pillo Rabago RPA - Doing very well on ozempic 0.5 mg weekly. He would like to lower lantus dose to 30 units twice daily which I think is reasonab le. Infreque nt need for short acting insulin. Problem Code: E11.9; Problem Code Type: ICD-10; Not Available [facility] 3 04:49:46 Testicul ar hypofunc tion 815394023 Active 201904/17/20 21 - Comments only - Pillo Rabago RPA - Recent consult with endocrin ology at [facility]. They recommen ded no testoste dora suppleme ntation given slight chance of prostate cancer. They plan on forwardi ng the note to this office. Problem Code: E29.1; Problem Code Type: ICD-10; Not Available [facility] 3 04:49:46 Pure hypergly ceridemi a 294560219 Active 201903/05/20 22 - Comments only - Pillo Rabago RPA - continue s on statin Problem Code: E78.1; Problem Code Type: ICD-10; Not Available [facility] 3 04:49:46 Obesity 497394606 Active 2019 Problem Code: E66.9; Problem Code Type: ICD-10; Not Available [facility] 3 04:49:46 Insomnia 982649105 Active 2019 Problem Code: G47.00; Problem Code Type: ICD-10; Not Available [facility] 3 04:49:46 Chronic obstruct ramez pulmonar y disease 47263578 Active 201903/05/20 22 - Comments only - Pillo Rabago RPA - smoking history. Asymptom atic. Routine low dose ct scans Problem Code: J44.9; Problem Code Type: ICD-10; [address], [place], [address] , [facility] 4 16:00:03 Liver function tests outside referenc e range 115499610 Active 201911/04/19 22 - Comments only - Pillo Rabago RPA - fatty liver on pior imaging. Problem Code: R94.5; Problem Code Type: ICD-10; [address], [place], [address] , [facility] 4 16:00:49 Polyneur opathy 93243135 Active 201901/03/20 23 - Comments only - Pillo Rabago RPA - Doing well on the Lyrica 200 mg twice daily dosing. He has noted improved balance since the lower dose was started. Problem Code: G62.9; Problem Code Type: ICD-10; Not Available [facility] 3 04:49:47 Kidney stone 44986805 Active 201908/10/20 20 - Comments only - Pillo Rabago RPA - history of Problem Code: N20.0; Problem Code Type: ICD-10; Not Available [facility] 3 04:49:47 Mood disorder 69673909 Active 2019 Problem Code: F39; Problem Code Type: ICD-10; [address], [place], [address] , [facility] 4 16:01:04 Obstruct ramez sleep apnea syndrome 58244824 Active 202003/05/20 22 - Comments only - Pillo Rabago RPA - stable on bipap. Problem Code: G47.33; Problem Code Type: ICD-10; Not Available [facility] 3 04:49:48 Gastroes ophageal reflux disease without esophagi tis 148718896 Active 2021 erosive esophagi tis/jai ritis 2018 egd Problem Code: K21.9; Problem Code Type: ICD-10; [address], [place], [address] , [facility] 4 16:00:30 Otitis media of left ear [id number] 51284 Completed 202101/02/2023 Problem Code: H66.92; Problem Code Type: ICD-10; Not Available [facility] 3 04:49:51 Viral screenin g Completed 202001/02/2023 Problem Code: Z11.59; Problem Code Type: ICD-10; Not Available [facility] 3 04:49:51 Acute upper respirat ory infectio n 85319008 Completed 202101/02/2023 Problem Code: J06.9; Problem Code Type: ICD-10; Not Available [facility] 3 04:49:51 Foot pain 02281099 Completed 202101/02/2023 Problem Code: M79.673; Problem Code Type: ICD-10; Not Available [facility] 3 04:49:52 Prostate specific antigen above referenc e range 910215482 Completed 202105/05/2023 Problem Code: R97.20; Problem Code Type: ICD-10; Not Available [facility] 3 04:49:52 Notes:*Problem Name: Urethra l stricture *Problem Status: active *Comments: 04/17/2021 - Comments only - Pillo Hima DELACRUZ - Having urethroplasty at [facility] next week. *Problem Code: N99.89 *Problem Code Type: ICD-10 *Note Date: 08/01/2020 Problem Notes None recorded. Medical Equipment None Reported. Allergies Allergen ID Allergen Name Allergen Category Reaction Reaction Severity Criticality Documentation Date Start Date Code Code System Note Provider Name and Address Organization Details Recorded Time 83010 Keflex medicatio n rash Not available Not available 07/01/2024 7 RxNorm summe r [address] [facility], [facility] 4 08:15:20 Medications Name Sig Start Date Stop [...] and Address Organization Details Last Updated DateTime 178.31 cm 35.5 kg/m2 930249. 5 g 98.8 [degF] 99 % 99 % 12 /min 76 /min 110 mm[Hg] 58 mm[Hg] JAM LEZAMA RN [facility] 08:18:32 Social History Question Answer Notes LastModified by Organizat ion Details LastModified Time Tobacco Smoking Status Former Smoker NEHA NORRIS RN [facility], [facility] 12/31/2023 14:35:14 When Did You [...] pneumococcal, unspecified formulation 08/19/2019 completed Not Available [facility] 08/14/2023 05:38:39 Tdap 10/31/2020 completed Not Available [facility] 05:38:40 zoster live 10/08/2020 completed Not Available [facility] 08/14/2023 05:38:41 zoster live 07/23/2020 completed Not Available [facility] 08/14/2023 05:38:41 Influenza, high-dose, quadrivalent, PF 07/04/2022 completed Not Available [facility] 08/14/2023 05:38:41 COVID-19, mRNA, LNP-S, PF, 100 mcg/0.5mL dose or 50 mcg/0.25mL dose 12/18/2020 completed Not Available [facility] 08/14/2023 05:38:42 SARS-COV-2 (COVID-19) vaccine, UNSPECIFIED 01/14/2021 completed Not Available [facility] 08/14/2023 05:38:42 SARS-COV-2 (COVID-19) vaccine, UNSPECIFIED 09/04/2021 completed Not Available [facility] 08/14/2023 05:38:42 COVID-19, mRNA, LNP-S, bivalent, PF, 30 mcg/0.3 mL dose 07/04/2022 completed Not Available [facility] 08/14/20 05:38:43 pneumococcal polysaccharide PPV23 10/31/2020 completed Not Available [facility] 2022 05:38:43 influenza, unspecified formulation 07/23/2020 completed Not Available [facility] 08/14/2023 05:38:43 Influenza, high-dose, quadrivalent, PF 07/31/2023 completed Not Available [facility] 10/16/2023 05:31:38 COVID-19, mRNA, LNP-S, PF, alla-sucrose, 30 mcg/0.3 mL 07/31/2023 completed Not Available [facility] 10/16/2023 05:31:38 Past Encounters Encounter ID Performer Location Encounter Start Date Encounter Closed Date Diagnosis/Indication Diagnosis SNOMED-CT Code Diagnosis ICD10 Code [id number] PILLO RABAGO PA-C [facility] [address] [place] [address] 07/01/2024 08:07:39 07/01/2024 09:17:10 Type 2 diabetes mellitus without complication 937691516 E11.9 Pure hyperglyceridemia 209082241 E78.1 Ex-smoker 9412950 Z87.89 1 Mood disorder 12695644 F 39 Polyneuropathy 88836187 G62.9 Health Concerns Section Related Observation LastModified by Organization Detai ls LastModified Time None Recorded Concern Status LastModified by Organization Details LastModified Time None Recorded Payers Encounter Date Sequence Insurance Name Policy Number Policy Fritz Covered Member ID Frtiz Member ID Guarantor Name 07/01/2024 1 [id number]IC[place]/A DVANTAGE - PPO) Topher Mosley [id number] Topher Mosley Notes Date Note Type Note Provider Name and Address Organization Details Recorded Time 07/01/2024 text/html HPI Notes: Landen is here [...] has been decreasing. Concerned about his prostate PILLO RABAGO PA-C [address], [place], [address], [facility]. 07/01/2024 09:30:31
[2024-07-01 16:35] LABS: Hemoglobin A1C 7.2 % (<5.7)
[2024-07-01 16:37] LABS: ALT 59 U/L (16-63); AST 37 U/L (15-37); Albumin 3.9 g/dL (3.4-5.0); Alkaline Phosphatase 113 U/L (46-116); Anion Gap 6.2 mmol/L (3-11); BUN 9 mg/dL (7-18); CO2 29.8 mmol/L (21.0-32.0); CREATININE 0.9 mg/dL (0.70-1.30); Calcium 9.2 mg/dL (8.5-10.1); Calculated LDL 66 mg/dL (<100); Chloride 104 mmol/L (98-107); Cholesterol 141 mg/dL (<200); Estimated GFR 91.88 (mL/min/1.73m2); Glucose 165 mg/dL (74-106); HDL Cholesterol 32 mg/dL (40-60); Potassium 4.2 mmol/L (3.5-5.1); Sodium 140 mmol/L (136-145); Total Protein 7.4 g/dL (6.4-8.2); Triglyceride 216 mg/dL (<150)
[2024-07-01 16:50] LABS: COMMENT (LAB VIEW ONLY) 82.36 mg/dL; Microalb ug/mg Crea 14.4 ug/mg Cr
== END 2024-07-01 10:24 | disposition home or self-care (01) ==
LOC: NCHCN 10:23
PROVIDERS: PCP Physician Assistant; Visit Provider Physician Assistant
DX: E11.9 Type 2 diabetes mellitus without complications (principal); E78.1 Pure hyperglyceridemia
CPT/HCPCS: 80053; 80061; 82043; 82570; 83036

== ENCOUNTER 2024-12-30 17:51 | Outpatient (REF) | payer BC, MEDICARE, SELFPAY ==
[2024-12-30 16:48] LABS: Hemoglobin A1C 6.5 % (<5.7)
[2024-12-30 16:56] LABS: ALT 24 U/L (16-63); AST 19 U/L (15-37); Albumin 3.8 g/dL (3.4-5.0); Alkaline Phosphatase 78 U/L (46-116); Anion Gap 7.5 mmol/L (3-11); BUN 11 mg/dL (7-18); Bilirubin, Total 0.3 mg/dL (0.2-1.0); CO2 29.5 mmol/L (21.0-32.0); CREATININE 0.8 mg/dL (0.70-1.30); Calcium 9.2 mg/dL (8.5-10.1); Calculated LDL 53 mg/dL (<100); Chloride 108 mmol/L (98-107); Cholesterol 110 mg/dL (<200); Estimated GFR 95.21 (mL/min/1.73m2); Glucose 90 mg/dL (74-106); HDL Cholesterol 39 mg/dL (>or=40); Potassium 4.3 mmol/L (3.5-5.1); Sodium 145 mmol/L (136-145); Total Protein 6.9 g/dL (6.4-8.2); Triglyceride 93 mg/dL (<150)
[2024-12-30 17:02] LABS: COMMENT (LAB VIEW ONLY) 71.74 mg/dL; Microalb ug/mg Crea 7.4 ug/mg Cr
== END 2024-12-30 17:52 | disposition home or self-care (01) ==
LOC: NCHCN 17:51
PROVIDERS: PCP Physician Assistant; Visit Provider Physician Assistant
DX: E11.9 Type 2 diabetes mellitus without complications (principal); C61 Malignant neoplasm of prostate
CPT/HCPCS: 80053; 80061; 82043; 82570; 83036; 84154

== ENCOUNTER → 2025-05-17 08:17 | Outpatient (BNVA) | payer MEDICARE, SELFPAY | PROVIDERS: PCP Physician Assistant; Referring Provider Physician Assistant; Visit Provider Surgery | DX: Z12.11 Encounter for screening for malignant neoplasm of colon (principal); Z86.0101 Personal history of adenomatous and serrated colon polyps; K21.00 Gastro-esophageal reflux disease with esophagitis, without bleeding | CPT/HCPCS: 99203 ==

== ENCOUNTER 2025-06-01 09:14 | Day surgery (SDC) | payer MEDICARE, SELFPAY ==
[2025-06-01 09:47] VITALS: BP 112/71; PULSE 66; RESP 16; TEMP 36.3; O2SAT 98
[2025-06-01] MEDS: Lactated Ringers 1,000 ML 80 ML IV (09:54)
--- NOTE | 2025-06-01 10:02 | W.ANESPRE ---
General Info Date of Service Date Performed: 06/01/25 Height: 5 ft 10 in Weight: 91.1 kg Body Mass Index (BMI): 28.8 Surgical Procedure: Operation Date: 06/01/25 10:35 Proposed Procedure Side Surgeon p Colonoscopy/Gastroscopy Maria D Adhikari MD Meds Allergies and Home Medications Allergies Allergy/AdvReac Type Severity Reaction Status Date / Time cephalexin (From Keflex) Allergy Severe rash Verified 06/01/25 09:44 Home Medication ?Medication ?Instructions ?Recorded metformin 500 mg tablet 500 mg PO BID 01/07/24 omeprazole 20 mg capsule,delayed 20 mg PO DAILY 01/07/24 release pregabalin 300 mg capsule 300 mg PO BID 01/07/24 rosuvastatin 5 mg tablet 5 mg PO DAILY 01/07/24 sucralfate 1 gram tablet 1 g PO QACHS 01/07/24 tamsulosin 0.4 mg capsule 0.8 mg PO DAILY 01/07/24 semaglutide 0.25 mg or 0.5 mg (2 0.5 mg subcut QWEEK 05/09/25 mg/1.5 mL) subcutaneous pen injector (Ozempic) bisacodyl 5 mg tablet,delayed 5 mg PO ONCE colonscopy bowel prep 05/17/25 release (Dulcolax (bisacodyl)) #4 tabs finasteride 5 mg tablet 5 mg PO DAILY 05/17/25 insulin lispro 100 unit/mL 3 unit subcut BID 05/17/25 subcutaneous pen (Humalog KwikPen (U-100) Insulin) polyethylene glycol 3350 17 238 g PO ONCE colonoscopy prep 05/17/25 gram/dose oral powder #238 grams Current Visit Medications: Current Medications Generic Name Dose Route Start Last Admin Trade Name Freq PRN Reason Stop Dose Admin Ringer's Solution 1,000 mls @ 80 mls/hr 06/01/25 06:00 06/01/25 09:54 IV 06/01/25 23:59 80 mls/hr INFUSION ROHAN Administration IV Miscellaneous Supplies 1 each 06/01/25 06:00 Iv Access IV 06/01/25 23:59 DIRECTED ROHAN Sodium Biphosphate/Sodium Phosphate 133 ml 06/01/25 06:00 Na Phosphate Enema-Adult 133 Ml Btl MN 06/01/25 23:59 DIRECTED ROHAN Sodium Chloride 0 ml 06/01/25 06:00 Normal Saline Flush 10 Ml Syr IV 06/01/25 23:59 PRN PRN Sodium Chloride 0 ml 06/01/25 06:00 Normal Saline 10 Ml Vial IJ 06/01/25 23:59 DIRECTED PRN Sterile Water 0 ml 06/01/25 06:00 Water,Injection,Sterile 10 Ml Vial IJ 06/01/25 23:59 DIRECTED PRN PFSH Active Problems Active Problems: Problem Status Onset Code GERD with esophagitis Acute K21.00 Encounter for colonoscopy due to history of adenomatous colonic polyps Acute Z12.11, Z86.0101 Pain, joint, knee, right Acute M25.561 Impingement syndrome of right shoulder Acute M75.41 Osteomyelitis Acute M86.9 Chronic ulcer of skin Acute L98.499 GERD without esophagitis Acute K21.9 COPD (chronic obstructive pulmonary disease) Chronic J44.9 Polyneuropathy Acute G62.9 Obstructive sleep apnea Chronic G47.33 Insomnia Acute G47.00 Nicotine dependence Acute F17.200 Obesity Chronic E66.9 Pure hyperglyceridemia Acute E78.1 Testicular hypofunction Acute E29.1 Type 2 diabetes mellitus without complication Acute E11.9 Malignant tumor of prostate Chronic C61 Tinea pedis Acute B35.3 Medical History Medical History Erosive esophagitis Tubular adenoma Kidney stone Surgical History Surgical History S/P colonoscopy (~05/13/18) 05/13/2018 tubular adenoma [place] S/P arthroscopy of knee History of esophagogastroduodenoscopy (EGD) (~05/13/18) 05/13/18 esophagitis, ulcertive esophagitis, acute erosive gastritis internal S/P cystourethroscopy with dilation of urethral stricture H/O hemorrhoidectomy H/O vasectomy Tobacco Smoking/Tobacco Use Status: Former Tobacco Use Passive smoking exposure: No Alcohol Alcohol Intake: current Alcohol intake frequency: holidays/special occasions only Substance Use Substance use: Never Substance use type: does not use Vital Signs and Lab Results Vital Signs Most Recent Vital Signs in EMR: Most Recent Vital Signs Temp Pulse Resp BP Pulse Ox 36.3 C L 66 16 112/71 98 06/01/25 09:47 08/28/25 09:47 06/01/25 09:47 06/01/25 09:47 06/01/25 09:47 Point of Care Results Point of Care Results: Finger Stick Blood Glucose 102 06/01/25 09:36 Anesthesia Assessment and Plan Anesthesia History Personal History: No History of Anesthesia Complications Family History: No Family History of Anesthesia Complications Exercise Tolerance Exercise Tolerance: Metabolic Equivalents>4 Pertinent Negatives Pertinent Negatives: No Symptoms of GERD Cardiac & Pulmonary Exam Cardiac Exam: Normal S1/S2 Heart Sounds Pulmonary Exam: Clear Bilateral Breath Sounds Implantable Cardiac Device Does patient have a Pacemaker or an ICD?: No Airway Exam Known Difficult Airway: No Mallampati Class: 1 Mouth Opening: Normal (> 3cm) Thyromental Distance: Greater than 3 cm Neck Range of Motion: Full ROM Neck Circumference: Normal Teeth Condition: Normal Dentition ASA Classification ASA Score: ASA 2 Emergency Case?: No NPO Status NPO Status: NPO Clears >2 hours, Solids >8 hours Anesthesia Plan Resuscitation Status: Full Code Anesthesia Technique: General Anesthesia Airway Planned: Natural Airway Monitors Used: Standard Monitors
[2025-06-01 10:05] VITALS: BMI 28.8
--- NOTE | 2025-06-01 10:05 | W.PM.HP.N ---
Date of service: 06/01/25 Time of Service: 10:05 Assessment and Plan Assessment and plan (1) Encounter for colonoscopy due to history of adenomatous colonic polyps: Status: Acute Assessment and plan: proceed with colonoscopy as planned. (2) GERD with esophagitis: Status: Acute Assessment and plan: EGD to assess for barretts and determine plan of care terminal supervisor. History of Present Illness Narrative: This is a 70-year-old male who is here for colonoscopy and EGD. His colonoscopy is due to a history of tubular adenoma, his EGD is for history of severe esophagitis with possible Leiva's esophagus. He has uncontrolled GERD though symptoms are decently controlled on omeprazole. There is no change in bowel habits or rectal bleeding. No family history of colon or rectal cancer. Review of Systems All systems reviewed & are unremarkable except as noted in HPI and below PFSH All Active Problems GERD with esophagitis (Acute) Encounter for colonoscopy due to history of adenomatous colonic polyps (Acute) Pain, joint, knee, right (Acute) Impingement syndrome of right shoulder (Acute) Osteomyelitis (Acute) Chronic ulcer of skin (Acute) GERD without esophagitis (Acute) COPD (chronic obstructive pulmonary disease) (Chronic) Polyneuropathy (Acute) Obstructive sleep apnea (Chronic) Insomnia (Acute) Nicotine dependence (Acute) Obesity (Chronic) Pure hyperglyceridemia (Acute) Testicular hypofunction (Acute) Type 2 diabetes mellitus without complication (Acute) Malignant tumor of prostate (Chronic) Tinea pedis (Acute) Medical History Erosive esophagitis Tubular adenoma Kidney stone Surgical History S/P colonoscopy (~05/13/18) 05/13/2018 tubular adenoma [place] S/P arthroscopy of knee History of esophagogastroduodenoscopy (EGD) (~05/13/18) 05/13/18 esophagitis, ulcertive esophagitis, acute erosive gastritis internal S/P cystourethroscopy with dilation of urethral stricture H/O hemorrhoidectomy H/O vasectomy Social History Smoking/Tobacco Use Status: Former Tobacco Use Quit Date: 12/03/17 Smoking risk assessment performed?: Yes Alcohol Intake: current Alcohol Intake frequency: holidays/special occasions only Drug use: Never Substance use type: does not use Housing: house Meds Allergies and Home Medications Allergies Allergy/AdvReac Type Severity Reaction Status Date / Time cephalexin (From Keflex) Allergy Severe rash Verified 06/01/25 09:44 Home Medications ?Medication ?Instructions ?Recorded ?Confirmed ?Type metformin 500 mg tablet 500 mg PO BID 01/07/24 06/01/25 History omeprazole 20 mg capsule,delayed 20 mg PO DAILY 01/07/24 06/01/25 History release pregabalin 300 mg capsule 300 mg PO BID 01/07/24 06/01/25 History rosuvastatin 5 mg tablet 5 mg PO DAILY 01/07/24 06/01/25 History sucralfate 1 gram tablet 1 g PO QACHS 01/07/24 06/01/25 History tamsulosin 0.4 mg capsule 0.8 mg PO DAILY 01/07/24 06/01/25 History semaglutide 0.25 mg or 0.5 mg (2 0.5 mg subcut QWEEK 05/09/25 05/30/25 History mg/1.5 mL) subcutaneous pen injector (Ozempic) bisacodyl 5 mg tablet,delayed 5 mg PO ONCE colonscopy bowel prep 05/17/25 06/01/25 Rx release (Dulcolax (bisacodyl)) #4 tabs finasteride 5 mg tablet 5 mg PO DAILY 05/17/25 06/01/25 History insulin lispro 100 unit/mL 3 unit subcut BID 05/17/25 06/01/25 History subcutaneous pen (Humalog KwikPen (U-100) Insulin) polyethylene glycol 3350 17 238 g PO ONCE colonoscopy prep 05/17/25 06/01/25 Rx gram/dose oral powder #238 grams Exam Narrative Exam Narrative: awake, NAD eomi, MMM midline trachea, neck is symmetric PULM: normal resp effort, equal chest rise with respiration, no wheezing audible CARDIAC: normal PMI, no jvd, regular rate, normal perfusion abdomen is nondistended. extremities are without deformity, normal movement of all four extremities speech is clear and coherent mood and affect are congruent, no focal neurological deficits skin without rash Results Last Vital Signs Temp 97.3 F L 06/01/25 09:47 Pulse 66 06/01/25 09:47 Resp 16 06/01/25 09:47 BP 112/71 06/01/25 09:47 Pulse Ox 98 06/01/25 09:47 Time Spent Time spent with Patient: <40 minutes Time was spent: preparing to see the patient(eg.review tests), indepentently interpreting results and counseling the patient
--- NOTE | 2025-06-01 10:13 | PDOC.DSDIS_ITS ---
Date of service: 06/01/25 Discharge Plan Disposition Patient Disposition: Home Condition: Stable Discharge Details Attending Provider: Maria D Adhikari Primary Care Provider: Pillo Rabago Recommendations for Follow Up Recommended tests to be ordered by follow up provider: Next colonoscopy will be due in 5 years. Home Meds and New Rx's Prescriptions: Continued finasteride 5 mg tablet 5 mg PO DAILY metformin 500 mg tablet 500 mg PO BID omeprazole 20 mg capsule,delayed release(DR/EC) 20 mg PO DAILY pregabalin 300 mg capsule 300 mg PO BID rosuvastatin 5 mg tablet 5 mg PO DAILY sucralfate 1 gram tablet 1 g PO QACHS tamsulosin 0.4 mg capsule 0.8 mg PO DAILY Ozempic 0.25 mg or 0.5 mg(2 mg/1.5 mL) pen injector 0.5 mg subcut QWEEK insulin lispro [Humalog KwikPen Insulin] 100 unit/mL insulin pen 3 unit subcut BID Discontinued bisacodyl [Dulcolax (bisacodyl)] 5 mg tablet,delayed release (DR/EC) 5 mg PO ONCE Qty: 4 0RF Rx Instructions: take per colonoscopy instructions polyethylene glycol 3350 17 gram/dose powder 238 g PO ONCE Qty: 238 0RF Rx Instructions: take per colonoscopy instructions Discharge Instructions Additional Instructions: Normal colonoscopy. Prior adenomatous polyps. Next colonoscopy will be due in 5 years. If normal at that time, can return to routine 10 year exams. EGD shows signs of old (not new or present) damage to esophagus. Biopsy taken to confirm, but I think this is barretts esophagus. Return to my office in 2-4 weeks to review this finding and make a [facility] endoscopy surveillance plan. If barretts, we will want to do the upper scope every 3 years. Stand Alone Forms: Anesthesia Discharge Inst., DSU Post EGD Instructions, Colonoscopy Post Instructions, Malik Collier (DSU) Activity:: Activity as Tolerated Diet:: As Tolerated DS: Diagnosis Discharge Diagnosis (1) Encounter for colonoscopy due to history of adenomatous colonic polyps: Status: Acute (2) GERD with esophagitis: Status: Acute
--- NOTE | 2025-06-01 10:15 | ENDO_ITS ---
Date of service: 06/01/25 Time of Service: 10:31 Endoscopy Report PRE-OP DIAGNOSIS: Chronic refractory GERD, evaluation for Barretts esophagus POST-OP DIAGNOSIS: same PROCEDURE: EGD with biopsy SURGEON: Maria D Adhikari ANESTHESIA TYPE: General:No Airway ESTIMATED BLOOD LOSS: 3 PATHOLOGY: other (1. antrum. 2. distal esophagus) COMPLICATIONS: None DISPOSITION: same day PROCEDURE DESCRIPTION: Lubricated endoscope was passed through a bite block into the second portion of the duodenum. The endoscope was withdrawn and the duodenum stomach and esophageal mucosa examined. The duodenum appeared normal. There is no inflammation or ulceration or e rosion. The antrum appears chronically inflamed. The fundus appears normal. The cardia appears normal. Given persistence of reflux and chronic gastritis, antral biopsy was obtained with cold forceps for H pylori testing. There is no evidence of hiatal hernia upon retroflexion. The distal esophagus shows evidence of barretts segment 1cm above the Z line, without ulceration no nodules. No varices or candidiasis. The Z-line is at 39cm. Remainder of the esophagus appears normal. Cold forceps biopsy obtained from the distal esophagus for Barretts esophagus evaluation. The upper digestive system was desufflated and the endoscope withdrawn. No complications. Assessment and plan: Chronic gastritis and evidence of barretts eophagus without nodules or acute inflammatory change. Biopsies taken to rule out H pylori and confirm barretts microscopically and rule out dysplasia. recommend PPI daily. He can continue omeprazole 20mg daily. Can discuss symptom control at follow up visit and consider a change to pantoprazole if indicated. Office follow up in 2-4 weeks. Will review biopsy results there.
--- NOTE | 2025-06-01 10:25 | STOM_PTH ---
PATIENT: Topher Mosley LOC: [facility] U#:[id number] AGE/SX: 70/M ROOM: RE06/01/[address]: Maria D Adhikari MD : [id number] BED: DIS: 06/01/2025 SPEC #: [id number] RECD: 06/01/25 13:08 STATUS: TEENA REQ #: [id number] MARCO A: 06/01/25 10:[address]: Maria D Adhikari DEPT: Surgical Specimen RECD BY: [address] ENTERED: 06/01/25 13:08 SP TYPE: STOMACH OTHR DR: Pillo Rabago Tissues: 1 - STOMACH BIOPSY 2 - ESOPHAGUS BIOPSY Procedures: GROSS AND MICRO LEVEL 4 Comments: [id number]
--- NOTE | 2025-06-01 10:50 | COLE_ITS ---
Date of service: 06/01/25 Time of Service: 10:50 Colonoscopy Report Pre-op diagnosis general: History of adenoma polyp Post-op diagnosis procedure note: same (normal colonoscopy) Procedure: Colonoscopy Surgeon: Maria D Adhikari Estimated blood loss (mL): 0 Pathology: none sent Complications: None Disposition: same day Prep: Miralax/Dulcolax (Fair in sigmoid colon, good in remainder of colon) Procedure Description: Informed consent was obtained and the patient was taken to the procedure area. The patient was placed in left lateral decubitus position on the procedure table. Timeout was performed. Anesthesia was induced. A lubricated colonosc ope was inserted through the anus and passed to the cecum. The cecum was identified by the ileocecal valve and the appendiceal orifice. The scope was then slowly withdrawn and the colonic and rectal mucosa examined. There are no colon or rectal mass lesions, polyps, AVMs. There is no inflammatory change. No diverticulosis was seen. The scope was retroflexed in the anorectal junction examined. Uncomplicated internal hemorrhoids present. Assessment and plan; Normal colonoscopy. Prior adenomatous polyps. Next colonoscopy will be due in 5 years. If normal at that time, can return to routine screening pool.
[2025-06-01 10:55] VITALS: BP 95/57; PULSE 61; RESP 20; TEMP 36.4; O2SAT 96
--- NOTE | 2025-06-01 11:19 | W.ANESPOSTOP ---
Postoperative Evaluation Date, Time and Location Date Performed: 06/01/25 Time Performed: 11:10 Patient Location: Day Surgery Unit Vital Signs Most Recent Imported Vital Signs: Most Recent Vital Signs Temp Pulse Resp BP Pulse Ox 36.4 C L 61 20 95/57 L 96 06/01/25 10:55 06/01/25 10:55 06/01/25 10:55 06/01/25 10:55 06/01/25 10:55 Pain Score Most Recent Pain Score: Most Recent Pain Score Pain Level 0 06/01/25 10:55 Assessment Mental Status: Awake (Alert & Oriented to Patient Baseline) Airway and Respiratory Function: Patent airway with normal (patient baseline) respiratory exam Cardiovascular Function: Hemodynamically Stable Hydration Status: Adequately Hydrated Nausea & Vomiting: No Nausea or Vomiting Pain: Pt. Denies Any Pain Peripheral Nerve Block: Patient did not receive a nerve block
[2025-06-01 11:24] VITALS: BP 119/79; PULSE 65; RESP 16; TEMP 36.4; O2SAT 99
== END 2025-06-01 11:44 | disposition home or self-care (01) ==
PROVIDERS: PCP Physician Assistant; Visit Provider Surgery
PROC: (CPT 43239; principal; 2025-06-01 10:30)
DX: Z12.11 Encounter for screening for malignant neoplasm of colon (principal); Z86.0101 Personal history of adenomatous and serrated colon polyps; K21.00 Gastro-esophageal reflux disease with esophagitis, without bleeding; K31.89 Other diseases of stomach and duodenum
CPT/HCPCS: 43239; G0105; 88305; J2003; J2704

== ENCOUNTER → 2025-09-01 01:54 | Outpatient (CLI) | payer MEDICARE, SELFPAY ==
--- NOTE | 2025-09-01 | DI.CTLCSR_ITS ---
Exam(s) CT CHEST LUNG CANCER SCREEN EXAM: CT CHEST LUNG CANCER SCREEN CLINICAL HISTORY: PERS HX NICOTINE DEPENDENCE Z87.891 >20 PK YEAR QUIT LESS 15 YRS AGO TECHNIQUE: Imaging Protocol: Axial computed tomography images with coronal and sagittal reformatted images were created and reviewed. Low dose screening protocol. COMPARISON: CT CT CHEST LUNG CANCER SCREEN from 04/12/[address] CHEST LOW DOSE CA SCREENING from 08/01/2024 FINDINGS: Tracheobronchial tree: No bronchiectasis or mucus plugging. Mediastinum and Soni: No dominant adenopathy or fluid collection. Pulmonary parenchyma: No consolidation or dominant measurable mass. Minimal emphysematous changes. No significant interstitial changes. Lung Nodules: None. Pleura: No effusion. No pneumothorax. Heart: The heart is not dilated. Minimal coronary artery calcifications are seen. No pericardial effusion. Aorta: Thoracic aorta non-dilated. Upper abdomen: Unremarkable. Bones: Degenerative disc changes. Multiple Schmorl's nodes. Soft Tissues: Unremarkable. IMPRESSION: No suspicious pulmonary nodules. Lung RADS Cat 1 - Negative: No nodules and definitely benign nodules Lung-RADS 1.0 CATEGORIES: Category 0 - Prior chest CT exam(s) being located for comparison. Category 1 - Annual screening in 12 months. No nodules or definitely benign nodules. Category 2 - Annual screening in 12 months. Benign appearance. Nodules with low likelihood of becoming active cancer. Category 3 - 6-month follow-up. Probably benign. Short-term follow-up suggested. Nodules with low likelihood of becoming active cancer. Category 4A - 3-month follow-up and CT/PET if >8 mm in size. Suspicious finding. Findings which require additional testing. Category 4B - Findings which require additional testing and tissue sampling. Category 4X - Category 3 or 4 nodules with additional features or imaging findings that increases the suspicion of malignancy. Modifier S- Potentially clinically significant findings (non lung cancer) RADIATION DOSE DELIVERED: 36.9mGy.cm Total DLP DATA REPOSITORY: All CT scans at this facility are submitted to the National Radiology Data Registry (NRDR) Dose Index Registry (DIR) with the [employer] ([employer]). RADIATION OPTIMIZATION: All CT scans at this facility use at least one of these dose optimization techniques: automated exposure control; mA and/or kV adjustment per patient size (includes targeted exams where dose is matched to clinical indication); or iterative reconstruction.
== END ==
LOC: DI 01:54
PROVIDERS: PCP Physician Assistant; Visit Provider Physician Assistant
DX: Z12.2 Encounter for screening for malignant neoplasm of respiratory organs (principal); Z87.891 Personal history of nicotine dependence
CPT/HCPCS: 71271